=== PATIENT | female | born 1950 | race Caucasian/White ===

== ENCOUNTER → 2016-06-29 | Outpatient (CLI) | payer MEDICARE, OTHER ==
[~2016-06-29] MED LIST: ACET-62 PO; ACYC400T PO; CITA20TA9 PO; FAMO20TA8 PO; FLUC100T8 PO; HYDR-3989 PO; IBUP-1724 PO; IOHEXOL 300 MG/ML 75ml INJECTION ONE; LEVO150T11 PO; LORA0.5T86 PO; LORA10TA62 PO; NORMAL SALINE 100 ML ONE; SALINE FLUSH 10ml SYRINGE ONE; TAMS0.4C47 PO; magic mouthwash SSW
[2016-06-29 09:21] LABS: HCT - HEMATOCRIT 34.8 % (36-46); MEAN CORPUSCULAR HGB 32.5 UUG (26-34); MEAN CORPUSCULAR HGB CONC(MCHC 31.6 GM/DL (31-37); MEAN PLATELET VOLUME 8.9 UM3 (9.4-12.4); RED BLOOD COUNT 3.38 M/MM3 (4.00-5.20)
[2016-06-29 09:40] LABS: ALBUMIN 3.8 G/DL (3.5-5.0); ALKALINE PHOSPHATASE 95 U/L (38-126); ALT (SGPT) 41 U/L (9-52); ANION GAP 11 MEQ/L (5-15); AST (SGOT) 38 U/L (14-36); BUN/CREATININE RATIO 27 RATIO (6-26); CALCIUM 9.4 MG/DL (8.4-10.2); CHLORIDE 107 MEQ/L (98-107); CO2 - CARBON DIOXIDE 28 MEQ/L (22-30); CREATININE 0.9 MG/DL (0.7-1.2); GLOMERULAR FILTRATION RATE 62; GLUCOSE 98 MG/DL (65-110); LDH 726 U/L (313-618); MAGNESIUM 1.8 MG/DL (1.6-2.3); POTASSIUM 4.3 MEQ/L (3.6-5); SODIUM 146 MEQ/L (134-144); TOTAL PROTEIN 7.8 G/DL (6.3-8.2); URIC ACID 5.7 MG/DL (2.5-7.5)
[2016-06-29 09:41] LABS: WBC - WHITE BLOOD COUNT 97.9 T/MM3 (4.5-11.0)
[2016-06-29 10:00] LABS: IGA - IMMUNOGLOBULIN A 250.16 MG/DL (70-400); IGM - IMMUNOGLOBULIN M 61.07 MG/DL (40-230); NEUTROPHILS #(MANUAL)-ABSOLUTE 2.9 T/MM3 (1.8-7.7); TOTAL CELLS COUNTED 100 %
[2016-06-29 10:02] LABS: ANISOCYTOSIS 1+; POIKILOCYTOSIS 1+; SMUDGE CELLS 1+; TEAR DROP CELLS 1+
--- NOTE | 2016-06-29 12:05 | DI ---
Indication: ITS.REASON: C91.10 Chronic lymphocytic leukemia of B-cell type not having ach PROCEDURE: CT CHEST/ABD/PELVIS WC: Encounter: Subsequent Comparison: CT neck, chest, abdomen and pelvis dated January 12, 2016 Technique: Axial CT images were performed through the chest, abdomen and pelvis after the administration of intravenous contrast. Coronal and sagittal two-dimensional reformats. Automated Exposure Control and Iterative Reconstruction dose reducing techniques were utilized. Contrast: Omnipaque 300 74 mL Findings: Chest: Bilateral apical pleural thickening or scarring. No pneumonia, pleural effusion or pneumothorax. No new pulmonary nodules or masses. The central airways are patent. Scattered bilateral supraclavicular nodes. Bilateral axillary lymphadenopathy, left greater than right. This has worsened from the comparison study with significant enlargement in numerous axillary and subpectoral nodes. A circulation representative node on image #29 measures up to 3.2 cm in short axis dimension. Many of the other nodes have at least doubled in size. Die Repairer Stamping right axillary lymph node on image #36 now measures 1.3 cm in short axis compared to 0.9 cm. Enlarging paratracheal nodes. Posterior mediastinal adenopathy is also slightly larger. Heart size is normal. No pericardial effusion. Abdomen/pelvis: The liver appears normal. Gallbladder is within normal limits. Worsening splenomegaly. Spleen measures 16.1 cm anteroposteriorly. The pancreas is stable with a prominent cystic lesion in the body. Adrenal glands and kidneys are unchanged with bilateral renal stones and large parapelvic cysts. Mild bilateral hydronephrosis. Bulky mesenteric and retroperitoneal adenopathy is again seen and is also worsened with interval enlargement within the 100s of existing nodes. These are confluent and difficult to precisely measure. Right external iliac and pelvic sidewall adenopathy is also worsened with a node on image #68 now measuring 2.5 cm in short axis compared to 2.1 cm previously. Bilateral inguinal adenopathy is worsened as well. Left external iliac adenopathy has progressed. Bladder is grossly normal. Uterus is absent. No evidence of an acute bowel obstruction. Colon is mostly decompressed. Bone windows show degenerative and postoperative changes in the lumbar spine. Impression: Worsening metastatic disease with enlarging axillary, mediastinal, mesenteric, retroperitoneal and pelvic adenopathy. .
== END ==
LOC: IMA 09:02
PROVIDERS: ATTEND Internal Medicine Hematology & Oncology
DX: C91.10 Chronic lymphocytic leukemia of B-cell type not having achieved remission (principal); C77.1 Secondary and unspecified malignant neoplasm of intrathoracic lymph nodes; C77.3 Secondary and unspecified malignant neoplasm of axilla and upper limb lymph nodes; C77.5 Secondary and unspecified malignant neoplasm of intrapelvic lymph nodes; C78.6 Secondary malignant neoplasm of retroperitoneum and peritoneum
CPT/HCPCS: 36415; 71260; 74177; 80053; 82784; 83615; 83735; 83883; 84155; 84165; 84550; 85025; 86334; J7050; Q9967

== ENCOUNTER 2016-07-10 21:55 | Inpatient (IN) | payer MEDICARE, OTHER ==
[~2016-07-10] VITALS: Ht 167.6 cm; Wt 63.0 kg
[~2016-07-10 21:55] MED LIST changes: -IOHEXOL 300 MG/ML 75ml INJECTION ONE; -NORMAL SALINE 100 ML ONE; -SALINE FLUSH 10ml SYRINGE ONE
--- OUTSIDE RECORDS SUMMARY | 2016-07-10 21:59 | XMS REPORT | Continuity of Care Document ---
Author Author [facility] Organization [facility] Address Unknown Phone Unavailable Support Name Relationship Address Phone CHRISTOPHER CLAYTON Caregiver [address] [place] [address] Unavailable REINALDO CARDENAS MD Caregiver [address] [place] [address] Unavailable GISELA YATES Next Of Kin [address] [place] [address] Insurance Providers Guarantor Angelica Yates Address [address] [place] [id number] Email [email or web address] Medicare Policy Number [id number] Subscriber's Name Angelica Yates Relationship 18 Self Payer [facility] Policy Number [id number] Subscriber's Name Angelica Yates Relationship 18 Self Group Number [id number] Problems Active Problems Medical Problem Onset Date Status Adverse drug reaction Unknown Acute Anemia Unknown Chronic Chronic lymphocytic leukemia ~2012 Chronic Dehydration Unknown Resolved Hyponatremia 02/14/2016 Resolved Hypothyroid Unknown Chronic Leukocytosis Unknown Pharyngitis Unknown Acute Rash of entire body Unknown Acute SIRS due to infectious process without acute organ dysfunction Unknown Acute Thrush of mouth and esophagus Unknown Acute Urinary retention Unknown Resolved Past Problems Medical Problem Onset Date Fever Unknown Immunosuppressed status Unknown Medications Current Home Medications Medication Dose Units Route Directions Days Qty Instructions Start Date Acetaminophen 500 Mg Tablet 1,000 Mg Oral Every 8 Hours as needed for Pain 02/12/16 Acetaminophen/Hydrocodone Bitart (Castana 5-325 Tablet) 5-325 Tablet 1-2 Tab Oral Every 4 Hours as needed for Pain 30 02/18/16 Acyclovir 400 Mg Tablet 400 Mg Oral Twice A Day 02/12/16 Citalopram Hydrobromide (Citalopram Hbr) 20 Mg Tablet 20 Mg Oral Daily 02/12/16 Famotidine 20 Mg Tablet 20 Mg Oral Twice A Day 60 Tablet 02/18/16 Fluconazole 100 Mg Tablet 100 Mg Oral Daily for Thrush 7 Days 7 Tablet 02/18/16 Ibuprofen 200 Mg Tablet 400 Mg Oral Every 4 Hours as needed for Pain 02/12/16 Levothyroxine Sodium 150 Mcg Tablet 150 Mcg Oral Before Breakfast 02/12/16 Loratadine (Claritin) 10 Mg Tablet 10 Mg Oral Daily 02/12/16 Lorazepam (Ativan) 0.5 Mg Tablet 0.5 Mg Oral Every 4 Hours as needed for Anxiety 02/12/16 Magic Mouthwash 5 Ml Swish And Swallow Four Times Daily 200 Milliliter SIMETHICONE, DIPENHYDRAMINE, LIDOCAINE 1:1:1 02/18/16 Tamsulosin Hcl 0.4 Mg Cap.er.24h 0.4 Mg Oral Daily as needed for Prn Orders 02/12/16 Past Home Medications Medication Directions Ordered Status Acetaminophen/Hydrocodone Bitart (Castana 5-325 Tablet) 5-325 Tablet, 1 Tab Oral Every 4 Hours as needed for Pain 02/12/16 Discontinued Allopurinol 300 Mg Tablet, 300 Mg Oral Daily 02/12/16 Discontinued Ibrutinib (Imbruvica) 140 Mg Capsule, 420 Mg Oral Daily 02/12/16 Discontinued Magic Mouthwash , 1 Dose Swish And Swallow Four Times Daily 02/12/16 Discontinued Social History No social history. Hospital Discharge Instructions No hospital discharge instructions. Plan of Care Prescriptions See Medication Section Functional Status No functional status results. Allergies, Adverse Reactions, Alerts Allergen Type Severity Reaction Status Last Updated Ertapenem Allergy Severe Active 02/13/16 Immunizations Query Response on File Recorded Date/Time Hx Influenza Vaccination Y fall 201502/12/16 8:54pm Hx Pneumococcal Vaccination Y fall 201402/12/16 8:54pm Hx Influenza Vaccination Y fall 201502/12/16 8:54pm Influenza Vaccine Hx fall 201502/13/16 9:36am Vital Signs No known vital signs results. Results Laboratory Results Test Name Result Units Flags Reference Collection Date/Time Result Date/ Time Comments Eosinophils % (Manual) 3.0 % 0-4 03/10/2016 8:47am 03/10/2016 9:45am Metamyelocytes % 1.0 % H 0-0 02/21/2016 2:10pm 02/21/2016 2:46pm Plasma Cells 1.0 % H 0-0 02/10/2016 1:26pm 02/10/2016 2:06pm Eosinophils # (Manual) 0.3 T/MM3 0-0.5 03/10/2016 8:47am 03/10/2016 9: 45am Metamyelocytes # 0.2 T/MM3 02/21/2016 2:10pm 02/21/2016 2:46pm Plasma Cells 0.2 T/MM3 02/10/2016 1:26pm 02/10/2016 2:06pm Toxic Granulation 1+ 02/21/2016 2:10pm 02/21/2016 2:46pm Macrocytosis 1+ 02/10/2016 1:26pm 02/10/2016 2:06pm Ovalocytes 1+ 03/10/2016 8:47am 03/10/2016 9:45am Tear Drop Cells 1+ 03/10/2016 8:47am 03/10/2016 9:45am Urine Collection Type CLEANCATCH-MIDSTREAM 02/10/2016 4:40pm 2015 6:19pm Urine Color YELLOW YELLOW 02/10/2016 4:40pm 02/10/2016 6:19pm Urine Turbidity CLEAR CLEAR 02/10/2016 4:40pm 02/10/2016 6:19pm Urine Specific [place] 1.015 1.015-1.025 02/10/2016 4:40pm 2015 6:19pm Urine pH 6.0 5.0-8.0 02/10/2016 4:40pm 02/10/2016 6:19pm Urine Leukocyte Esterase NEGATIVE NEGATIVE 02/10/2016 4:40pm 2015 6:19pm Urine Nitrite NEGATIVE NEGATIVE 02/10/2016 4:40pm 02/10/2016 6:19pm Urine Protein 1+ A NEGATIVE 02/10/2016 4:40pm 02/10/2016 6:19pm Urine Glucose (UA) NEGATIVE NEGATIVE 02/10/2016 4:40pm 02/10/2016 6: 19pm Urine Ketones NEGATIVE NEGATIVE 02/10/2016 4:40pm 02/10/2016 6:19pm Urine Urobilinogen 0.2 EU/DL NORMAL 02/10/2016 4:40pm 02/10/2016 6: 19pm Urine Bilirubin NEGATIVE NEGATIVE 02/10/2016 4:40pm 02/10/2016 6: 19pm Urine Blood TRACE-INTACT A NEGATIVE 02/10/2016 4:40pm 02/10/2016 6: 19pm Urine WBC 1-3 /HPF 0-5 02/10/2016 4:40pm 02/10/2016 6:32pm Urine RBC 3-5 /HPF H 0-3 02/10/2016 4:40pm 02/10/2016 6:32pm Urine Squamous Epithelial Cells 0-5 02/10/2016 4:40pm 02/10/2016 6: 32pm Urine Bacteria TRACE H NEGATIVE 02/10/2016 4:40pm 02/10/2016 6:32pm Urine Culture Indicated CULT NOT INDICATED 02/10/2016 4:40pm 2015 6:32pm White Blood Count 30.0 T/MM3 *H 4.5-11.0 05/11/2016 9:44am 05/11/2016 9: 58am Red Blood Count 3.50 M/MM3 L 4.00-5.20 05/11/2016 9:44am 05/11/2016 9: 58am Hemoglobin 11.5 GM/DL L 12-16 05/11/2016 9:44am 05/11/2016 9:58am Hematocrit 35.3 % L 36-46 05/11/2016 9:44am 05/11/2016 9:58am Mean Corpuscular Volume 100.9 UM3 H 80-100 05/11/2016 9:44am 05/11/2016 9:58am Mean Corpuscular Hemoglobin 32.9 UUG 26-34 05/11/2016 9:44am 2016 9:58am Mean Corpuscular Hemoglobin Concent 32.6 GM/DL 31-37 05/11/2016 9:44am 05/11/2016 9:58am RDW Standard Deviation 53.6 FL H 36.9-50.2 05/11/2016 9:44am 05/11/2016 9:58am Platelet Count 171 T/MM3 130-400 05/11/2016 9:44am 05/11/2016 9:58am Mean Platelet Volume 9.2 UM3 L 9.4-12.4 05/11/2016 9:44am 05/11/2016 9: 58am Neutrophils % (Manual) 3.0 % L 33-66 05/11/2016 9:44am 05/11/2016 10: 21am Lymphocytes % (Manual) 96.0 % H 23-45 05/11/2016 9:44am 05/11/2016 10: 21am Monocytes % (Manual) 1.0 % 0-9.0 05/11/2016 9:44am 05/11/2016 10:21am Myelocytes % 2.0 % H 0-0 04/13/2016 11:28am 04/13/2016 12:11pm Reactive Lymphocytes % 1.0 % H 0-0 04/20/2016 10:23am 04/20/2016 11: 06am Absolute Neutrophils (Manual) 0.9 T/MM3 L 1.8-7.7 05/11/2016 9:44am 12/2016 10:21am Lymphocytes # (Manual) 28.8 T/MM3 H 1-4.8 05/11/2016 9:44am 05/11/2016 10:21am Monocytes # (Manual) 0.3 T/MM3 0-0.8 05/11/2016 9:44am 05/11/2016 10: 21am Myelocytes # 0.4 T/MM3 04/13/2016 11:28am 04/13/2016 12:11pm Reactive Lymphocytes # 0.3 T/MM3 H 0-0 04/20/2016 10:23am 04/20/2016 11: 06am Smudge Cells 2+ 05/04/2016 9:38am 05/04/2016 10:14am Nucleated Red Blood Cells 1 05/11/2016 9:44am 05/11/2016 10:21am Red Cell Morphology Comment ABNORMAL 05/11/2016 9:44am 05/11/2016 10:21am Anisocytosis 1+ 05/11/2016 9:44am 05/11/2016 10:21am Poikilocytosis 1+ 05/11/2016 9:44am 05/11/2016 10:21am Icterus Index < 2 0-7 05/11/2016 9:44am 05/11/2016 10:04am Chemistry Specimen Hemolysis < 15 0-25 05/11/2016 9:44am 05/11/2016 10:04am 0-25: Specimen Exhibited No Hemolysis. Turbidity < 20 0-20 05/11/2016 9:44am 05/11/2016 10:04am Sodium Level 141 MEQ/L 134-144 05/11/2016 9:44am 05/11/2016 10:04am Potassium Level 4.2 MEQ/L 3.6-5 05/11/2016 9:44am 05/11/2016 10:04am Chloride Level 107 MEQ/L 98-107 05/11/2016 9:44am 05/11/2016 10:04am Carbon Dioxide Level 27 MEQ/L 22-30 05/11/2016 9:44am 05/11/2016 10: 04am Anion Gap 7 MEQ/L 5-15 05/11/2016 9:44am 05/11/2016 10:04am Blood Urea Nitrogen 21.0 MG/DL H 7-17 05/11/2016 9:44am 05/11/2016 10: 04am Creatinine 0.9 MG/DL 0.7-1.2 05/11/2016 9:44am 05/11/2016 10:04am BUN/Creatinine Ratio 23 RATIO 6-26 05/11/2016 9:44am 05/11/2016 10: 04am Glomerular Filtration Rate Calc 62 05/11/2016 9:44am 05/11/2016 10: 04am Glucose Level 82 MG/DL 65-110 05/11/2016 9:44am 05/11/2016 10:04am Calculated Osmolality 273 MOSM/KG 261-280 05/11/2016 9:44am 05/11/2016 10:04am Calcium Level 9.0 MG/DL 8.4-10.2 05/11/2016 9:44am 05/11/2016 10:04am Total Bilirubin 0.60 MG/DL 0.20-1.30 05/11/2016 9:44am 05/11/2016 10: 04am Alkaline Phosphatase 75 U/L 38-126 05/11/2016 9:44am 05/11/2016 10: 04am Total Protein 7.4 G/DL 6.3-8.2 05/11/2016 9:44am 05/11/2016 10:04am Albumin 3.8 G/DL 3.5-5.0 05/11/2016 9:44am 05/11/2016 10:04am Globulin 3.6 G/DL 2.4-3.6 05/11/2016 9:44am 05/11/2016 10:04am Albumin/Globulin Ratio 1.1 RATIO 1.1-2.2 05/11/2016 9:44am 05/11/2016 10:04am Aspartate Amino Transf (AST/SGOT) 35 U/L 14-36 05/11/2016 9:44am 2016 10:04am Alanine Aminotransferase (ALT/SGPT) 39 U/L 9-52 05/11/2016 9:44am 05/11 10:04am Lactate Dehydrogenase 588 U/L 313-618 05/11/2016 9:44am 05/11/2016 10: 04am Magnesium Level 1.8 MG/DL 1.6-2.3 05/11/2016 9:44am 05/11/2016 10:04am Uric Acid 5.8 MG/DL 2.5-7.5 05/11/2016 9:44am 05/11/2016 10:04am Blood Smear Review SENT OUT 04/20/2016 10:23am 04/21/2016 11:12am SENT OUT Microbiology Results Procedure Source Organism/Result Collection Date/Time Result Date/Time Result Status Blood Culture Peripheral/Iv Start NO GROWTH AFTER 5 DAYS 02/10/2016 3:49pm 02/15/2016 3:53pm Final Urine Culture Urine, Clean Catch-Midstream NO GROWTH AFTER 48 HOURS 2015 4:40pm 02/13/2016 7:29am Final Procedures Procedure Status Date Provider(s) Routine venipuncture Completed 01/27/16 Comprehen metabolic panel Completed 01/27/16 Lactate (ld) (ldh) enzyme Completed 01/27/16 Assay of magnesium Completed 01/27/16 Complete cbc w/auto diff wbc Completed 01/27/16 Routine venipuncture Completed 01/27/16 Comprehen metabolic panel Completed 01/27/16 Lactate (ld) (ldh) enzyme Completed 01/27/16 Assay of magnesium Completed 01/27/16 Assay of blood/uric acid Completed 01/27/16 Complete cbc w/auto diff wbc Completed 01/27/16 Routine venipuncture Completed 01/27/16 Comprehen metabolic panel Completed 01/27/16 Lactate (ld) (ldh) enzyme Completed 01/27/16 Assay of magnesium Completed 01/27/16 Assay of blood/uric acid Completed 01/27/16 Complete cbc w/auto diff wbc Completed 01/27/16 Comprehen metabolic panel Completed 01/27/16 Lactate (ld) (ldh) enzyme Completed 01/27/16 Assay of magnesium Completed 01/27/16 Assay of blood/uric acid Completed 01/27/16 Complete cbc w/auto diff wbc Completed 01/27/16 Routine venipuncture Completed 01/27/16 Comprehen metabolic panel Completed 01/27/16 Lactate (ld) (ldh) enzyme Completed 01/27/16 Assay of magnesium Completed 01/27/16 Assay of blood/uric acid Completed 01/27/16 Complete cbc w/auto diff wbc Completed 01/27/16 Routine venipuncture Completed 01/27/16 Comprehen metabolic panel Completed 01/27/16 Lactate (ld) (ldh) enzyme Completed 01/27/16 Assay of magnesium Completed 01/27/16 Complete cbc w/auto diff wbc Completed 01/27/16 Routine venipuncture Completed 01/27/16 Comprehen metabolic panel Completed 01/27/16 Lactate (ld) (ldh) enzyme Completed 01/27/16 Assay of magnesium Completed 01/27/16 Assay of blood/uric acid Completed 01/27/16 Complete cbc w/auto diff wbc Completed 01/27/16 Routine venipuncture Completed 01/27/16 Comprehen metabolic panel Completed 01/27/16 Lactate (ld) (ldh) enzyme Completed 01/27/16 Assay of magnesium Completed 01/27/16 Assay of blood/uric acid Completed 01/27/16 Complete cbc w/auto diff wbc Completed 01/27/16 Routine venipuncture Completed 01/27/16 Comprehen metabolic panel Completed 01/27/16 Lactate (ld) (ldh) enzyme Completed 01/27/16 Assay of magnesium Completed 01/27/16 Assay of blood/uric acid Completed 01/27/16 Complete cbc w/auto diff wbc Completed 01/27/16 Routine venipuncture Completed 01/27/16 Comprehen metabolic panel Completed 01/27/16 Lactate (ld) (ldh) enzyme Completed 01/27/16 Assay of magnesium Completed 01/27/16 Assay of blood/uric acid Completed 01/27/16 Complete cbc w/auto diff wbc Completed 01/27/16 Encounters Encounter Location Arrival/Admit Date Discharge/Depart Date Attending Provider Discharged [facility] 05/11/16 9:35am 06/25/16 11:59pm CHRISTOPHER CLAYTON Discharged [facility] 01/27/16 7:57am 04/01/16 11:45pm CHRISTOPHER CLAYTON
--- OUTSIDE RECORDS SUMMARY | 2016-07-10 22:00 | XMS REPORT | Continuity of Care Document ---
Author Author [facility] Organization [facility] Address Unknown Phone Unavailable Support Name Relationship Address Phone POLO BLACK MD Caregiver [address] [place] [address] Unavailable YASMINE SCHAEFER MD Caregiver [address] [place] [address] [place] [address] Unavailable REINALDO CARDENAS MD Caregiver [address] [place] [address] Unavailable KATELYNN BUENO MD Caregiver [address] [place] [address] [place] [address] Unavailable TRUDYGISELA [place] Next Of Kin [address] [place] [address] Insurance Providers Guarantor Angelica Coyne Address [address] [address] Email [email or web address] Payer Medicare Policy Number [id number] Subscriber's Name Angelica Coyne Relationship 18 Self Payer [facility] Policy Number [id number] Subscriber's Name Angelica Coyne Relationship 18 Self Group Number [id number] Advance Directives Directive Response Recorded Date/Time Ordered Resuscitation Status Full Code 02/12/16 7:54pm Resuscitation Documents on File No 02/12/16 8:47pm DPOA for Healthcare Only No 02/13/16 10:34am Living Will No 02/12/16 8:47pm Advanced Directive or Resuscitation Comments full code 02/12/16 8:47pm Problems Active Problems Medical Problem Onset Date Status Adverse drug reaction Unknown Acute Anemia Unknown Chronic Chronic lymphocytic leukemia ~2012 Chronic Dehydration Unknown Resolved Hyponatremia 02/14/2016 Resolved Hypothyroid Unknown Chronic Leukocytosis Unknown Pharyngitis Unknown Acute Rash of entire body Unknown Acute SIRS due to infectious process without acute organ dysfunction Unknown Acute Thrush of mouth and esophagus Unknown Acute Urinary retention Unknown Acute Past Problems Medical Problem Onset Date Fever Unknown Immunosuppressed status Unknown Medications Current Home Medications Medication Dose Units Route Directions Days Qty Instructions Start Date Acetaminophen 500 Mg Tablet 1,000 Mg Oral Every 8 Hours as needed for Pain 02/12/16 Acyclovir 400 Mg Tablet 400 Mg Oral Twice A Day 02/12/16 Citalopram Hydrobromide (Citalopram Hbr) 20 Mg Tablet 20 Mg Oral Daily 02/12/16 Famotidine 20 Mg Tablet 20 Mg Oral Twice A Day 60 Tablet 02/18/16 Fluconazole 100 Mg Tablet 100 Mg Oral Daily for Thrush 7 Days 7 Tablet 02/18/16 Hydrocodone/Acetaminophen (Hydrocodon-Acetaminophen 5-325) 5-325 Tablet 1-2 Tab Oral Every 4 Hours as needed for Pain 30 02/18/16 Ibuprofen 200 Mg Tablet 400 Mg [...] Past Home Medications Medication Directions Ordered Status Allopurinol 300 Mg Tablet, 300 Mg Oral Daily 02/12/16 Discontinued Hydrocodone/Acetaminophen (Hydrocodon-Acetaminophen 5-325) 5-325 Tablet, 1 Tab Oral Every 4 Hours as needed for Pain 02/12/16 Discontinued Ibrutinib (Imbruvica) 140 Mg Capsule, 420 Mg Oral Daily 02/12/16 Discontinued Magic Mouthwash , 1 Dose Swish And Swallow Four Times Daily 02/12/16 Discontinued Social History Social History Problem Response Recorded Date/Time Onset Date Status Reason for Hospitalization rash 02/18/2016 2:41pm Not Applicable Not Applicable Query Response Start Date Stop Date Smoking Status Never smoker Hospital Discharge Instructions Instructions: Care Instructions: Reason for Hospitalization: rash I was in the hospital because (patient own words): terrible rash and high fever from chemo Discharge Diet: regular/soft Discharge Activity: As tolerated Follow Up Appointments: Contact [facility] if any issues arise and they will follow up with you Schedule f/u with Dr. Varela Sunday02/21/16 labs at 1:45 pm. and the follow up at 2:30 pm. Follow-up with Dr. Oscar Ambrosio in 1-2 weeks on March 02 at 3:30 pm. Pending Lab / Results: Follow up w/ provider Patient Instructions: Continue Pepcid and Claritin daily to minimize itching. Take Benadryl as needed for itching Continue swizzle mouthwash for oral comfort. Continue Diflucan for another week for thrush. Final blood culture results pending at discharge. Wound/Incision Care: Keep area moisturized with A&D ointment, may cover with Telfa or other nonadherent dressing Durable Medical Equipment: NA Pain Management/Treatment: See medication list Expected Signs/Symptoms: Discomfort in your mouth and related to areas where the rash has formed blisters and sloughed Notify Physician If: Areas on your buttocks become red or inflamed and start draining pus. You developed fever or chills: Worsening rash During Business Hours:: Please call the physician's office at After Business Hours:: Please call [phone] and have the mold yard crane operator page the physician. Condition at time of discharge: Fair Plan of Care Discharge Date 02/18/16 3:16pm Disposition 01 DISCHARGED HOME, SELF-CARE Instructions/Education Provided DI for Fever (Symptom) -- Adult Prescriptions See Medication Section Care Plan and Goals See Discharge Instructions Section Functional Status Query Response Date Recorded Mobility Status Ambulatory w/assist February 18, 2016 2:41pm Assistive Devices None February 18, 2016 2:41pm Activity Limitations Weakness Fatigue February 18, 2016 2:41pm Feeding Ability Independent February 18, 2016 2:41pm Toileting Ability Assist February 18, 2016 2:41pm Grooming Ability Independent February 18, 2016 2:41pm Dressing Ability Assist February 18, 2016 2:41pm Driving Ability Assist February 18, 2016 2:41pm Housework Ability Assist February 18, 2016 2:41pm Meal Preparation Ability Assist February 18, 2016 2:41pm Stair Climbing Ability Assist February 18, 2016 2:41pm Ability to complete ADL's impeded by Impaired Mobility February 18, 2016 2:41pm Cognitive/Perceptual Impairments Impaired vision February 18, 2016 2:41pm Visual Assistive Devices Glasses February 15, 2016 8:33pm Allergies, Adverse Reactions, Alerts Allergen Type Severity Reaction Status Last Updated Ertapenem Allergy Severe Active 02/13/16 Immunizations Query Response on File Recorded Date/Time Hx Influenza Vaccination Y fall 201502/12/16 8:54pm Hx Pneumococcal Vaccination Y fall 201402/12/16 8:54pm Hx Influenza Vaccination Y fall 201502/12/16 8:54pm Influenza Vaccine Hx fall 201502/13/16 9:36am Vital Signs Acute Vital Signs Vital Response Date/Time Temperature (Fahrenheit) 97.2 deg F (96.8 - 99.1) 02/18/2016 4:01am Temperature (Calculated Celsius) 36.90993 degrees C (36.0 - 37.3) 02/18/2016 4:01am Pulse Rate (adult) 73 bpm (60 - 100) 02/18/2016 7:37am Respiratory Rate 17 breaths/min (10 - 20) 02/18/2016 7:34am O2 Sat by Pulse Oximetry 95 % (90 - 100) 02/18/2016 7:34am Oxygen Delivery Method Room Air 02/13/2016 8:19pm Oxygen Delivery Method Room Air 02/18/2016 4:01am Blood Pressure 120/65 mm Hg 02/18/2016 7:37am Blood Pressure Source Automatic Cuff 02/18/2016 7:34am Height (Feet) 5 feet 02/17/2016 2:03pm Height (Inches) 6.00 inches 02/17/2016 2:03pm Weight (Kilograms) 63.600 kg 02/18/2016 7:38am Body Mass Index (BMI) 21.5 02/12/2016 8:46pm Results Laboratory Results Test Name Result Units Flags Reference Collection Date/Time Result Date/ Time Comments Immunoglobulin G 1538.26 MG/DL 700-1600 12/30/2015 8:28am 12/30/2015 8: 56am Immunoglobulin A 228.73 MG/DL 70-400 12/30/2015 8:28am 12/30/2015 8: 56am Immunoglobulin M 73.84 MG/DL 40-230 12/30/2015 8:28am 12/30/2015 8: 56am 25-Hydroxy Vitamin D3 31 ng/mL 12/30/2015 8:28am 01/03/2016 10:26am 25-Hydroxy Vitamin D2 <7 ng/mL 12/30/2015 8:28am 01/03/2016 10:26am 25-Hydroxy Vitamin D Total 31 ng/mL 30-74 12/30/2015 8:28am 01/03/2016 10:26am The desirable level of 25-Hydroxy Vitamin D Total(D2 + D3) is 30-74 ng/ mL. A level consistently >200 is potentially toxic. Vitamin D, 25-Hydroxy performed at [facility], [address] [place] [address] Section Gang Worker Alba Torres DO Erythropoietin 54.3 mIU/mL H 01/17/2016 3:52pm 01/19/2016 3:53pm Reference Range: 2.6 - 18.5 Test Performed by: [place] [address] Lighting Designer: Gustavo Young II, M.D., Ph.D. Erythropoietin performed at [facility], [address] [place] [address] Section Gang Worker Hector Salvador MD Haptoglobin 204 mg/dL H 36-195 01/17/2016 3:52pm 01/17/2016 10:32pm Haptoglobin performed at [facility], [address] [place] [address] Section Gang Worker Alba Torres DO Homocysteine 4.5 umol/L 4.0-14.0 01/17/2016 3:52pm 01/17/2016 10:04pm Homocysteine performed at [facility], [address] [place] [address] Section Gang Worker Alba Torres DO Methylmalonic Acid 0.15 nmol/mL <=0.40 01/17/2016 3:52pm 01/21/2016 10: 11am Test Performed by: [place] [address] Lighting Designer: Gustavo Young II, M.D., Ph.D. Methylmalonic Acid, [place] [address] Section Gang Worker Hector Salvador MD Phosphorus Level 3.4 MG/DL 2.5-4.5 01/19/2016 10:25am 01/19/2016 11: 08am Erythrocyte Sedimentation Rate 48 mm/h H 0-23 02/11/2016 8:30am 2015 4:18pm Sedimentation Rate performed at [facility], [address], [place] [address] Section Gang Worker Alba Wu W, DO Myelocytes % 1.0 % H 0-0 01/27/2016 8:08am 01/27/2016 9:50am Plasma Cells 1.0 % H 0-0 02/10/2016 1:26pm 02/10/2016 2:06pm Myelocytes # 0.9 T/MM3 01/27/2016 8:08am 01/27/2016 9:50am Plasma Cells 0.2 T/MM3 02/10/2016 1:26pm 02/10/2016 2:06pm Urine Culture Indicated CULT NOT INDICATED 02/10/2016 4:40pm 2015 6:32pm C-Reactive Protein 67.4 MG/L H 0-9 02/12/2016 12:08pm 02/12/2016 12: 26pm White Blood Count 17.7 T/MM3 H 4.5-11.0 02/18/2016 4:41am 02/18/2016 6: 02am Red Blood Count 2.39 M/MM3 L 4.00-5.20 02/18/2016 4:41am 02/18/2016 6: 02am Hemoglobin 7.9 GM/DL L 12-16 02/18/2016 4:41am 02/18/2016 6:02am Hematocrit 25.5 % L 36-46 02/18/2016 4:41am 02/18/2016 6:02am Mean Corpuscular Volume 106.7 UM3 H 80-100 02/18/2016 4:41am 02/18/2016 6:02am Mean Corpuscular Hemoglobin 33.1 UUG 26-34 02/18/2016 4:41am 2015 6:02am Mean Corpuscular Hemoglobin Concent 31.0 GM/DL 31-37 02/18/2016 4:41am 02/18/2016 6:02am RDW Standard Deviation 62.9 FL H 36.9-50.2 02/18/2016 4:41am 02/18/2016 6:02am Platelet Count 208 T/MM3 130-400 02/18/2016 4:41am 02/18/2016 6:02am Mean Platelet Volume 9.8 UM3 9.4-12.4 02/18/2016 4:41am 02/18/2016 6: 02am Neutrophils % (Manual) 23.0 % L 33-66 02/18/2016 4:41am 02/18/2016 6: 51am Band Neutrophils % 1.0 % 0-6 02/15/2016 4:14am 02/15/2016 6:43am Lymphocytes % (Manual) 74.0 % H 23-45 02/18/2016 4:41am 02/18/2016 6: 51am Monocytes % (Manual) 1.0 % 0-9.0 02/18/2016 4:41am 02/18/2016 6:51am Reactive Lymphocytes % 2.0 % H 0-0 02/18/2016 4:41am 02/18/2016 6:51am Band Neutrophils # 0.2 T/MM3 02/15/2016 4:14am 02/15/2016 6:43am Absolute Neutrophils (Manual) 4.1 T/MM3 1.8-7.7 02/18/2016 4:41am 02/17 6:51am Lymphocytes # (Manual) 13.1 T/MM3 H 1-4.8 02/18/2016 4:41am 02/18/2016 6 :51am Monocytes # (Manual) 0.2 T/MM3 0-0.8 02/18/2016 4:41am 02/18/2016 6: 51am Reactive Lymphocytes # 0.4 T/MM3 H 0-0 02/18/2016 4:41am 02/18/2016 6: 51am Smudge Cells 3+ 02/18/2016 4:41am 02/18/2016 6:51am Red Cell Morphology Comment ABNORMAL 02/18/2016 4:41am 02/18/2016 6 :51am Anisocytosis 1+ 02/18/2016 4:41am 02/18/2016 6:51am Poikilocytosis 1+ 02/15/2016 4:14am 02/15/2016 6:43am Macrocytosis 1+ 02/15/2016 4:14am 02/15/2016 6:43am Polychromasia 1+ 02/16/2016 5:26am 02/16/2016 7:30am Flat Top Cells 2+ 02/15/2016 4:14am 02/15/2016 6:43am Ovalocytes 1+ 02/12/2016 5:41pm 02/12/2016 6:05pm Target Cells 1+ 02/12/2016 5:41pm 02/12/2016 6:05pm Basophilic Stippling 1+ 02/16/2016 5:26am 02/16/2016 7:30am Absolute Reticulocyte Count 0.0163 T/MM3 L 0.0300-0.0900 02/17/2016 4: 17am 02/17/2016 5:25am Percent Reticulocyte Count 0.7 % 0.6-1.7 02/17/2016 4:17am 02/17/2016 5 :25am Immature Reticulocyte Fraction 10.7 % 3.3-14.5 02/17/2016 4:17am 2015 5:25am Reticulocyte Hgb Content (CHr) 31.2 PG 30.8-36.6 02/17/2016 4:17am 5:25am Icterus Index < 2 0-7 02/18/2016 4:41am 02/18/2016 6:14am Chemistry Specimen Hemolysis < 15 0-25 02/18/2016 4:41am 02/18/2016 6 :14am 0-25: Specimen Exhibited No Hemolysis. Turbidity < 20 0-20 02/18/2016 4:41am 02/18/2016 6:14am Sodium Level 139 MEQ/L 134-144 02/18/2016 4:41am 02/18/2016 6:14am Potassium Level 3.7 MEQ/L 3.6-5 02/18/2016 4:41am 02/18/2016 6:14am Chloride Level 105 MEQ/L 98-107 02/18/2016 4:41am 02/18/2016 6:14am Carbon Dioxide Level 28 MEQ/L 22-30 02/18/2016 4:41am 02/18/2016 6: 14am Anion Gap 6 MEQ/L 5-15 02/18/2016 4:41am 02/18/2016 6:14am Blood Urea Nitrogen 19.0 MG/DL H 7-17 02/18/2016 4:41am 02/18/2016 6: 14am Creatinine 0.8 MG/DL 0.7-1.2 02/18/2016 4:41am 02/18/2016 6:14am BUN/Creatinine Ratio 24 RATIO 6-26 02/18/2016 4:41am 02/18/2016 6:14am Glomerular Filtration Rate Calc 72 02/18/2016 4:41am 02/18/2016 6: 14am Glucose Level 72 MG/DL 65-110 02/18/2016 4:41am 02/18/2016 6:14am Calculated Osmolality 269 MOSM/KG 261-280 02/18/2016 4:41am 02/18/2016 6:14am Calcium Level 7.7 MG/DL L 8.4-10.2 02/18/2016 4:41am 02/18/2016 6:14am Total Bilirubin 0.30 MG/DL 0.20-1.30 02/17/2016 4:02/17/2016 9: 34am Unconjugated Bilirubin 0.00 MG/DL 0.00-1.10 02/17/2016 4:2015 9:34am Conjugated Bilirubin 0.00 MG/DL 0.00-0.30 02/17/2016 4:02/17/2016 9:34am Alkaline Phosphatase 46 U/L 38-126 02/17/2016 4:02/17/2016 9:34am Total Protein 4.8 G/DL L 6.3-8.2 02/17/2016 4:02/17/2016 9:34am Albumin 2.2 G/DL L 3.5-5.0 02/17/2016 4:02/17/2016 9:34am Globulin 2.6 G/DL 2.4-3.6 02/17/2016 4:02/17/2016 9:34am Albumin/Globulin Ratio 0.8 RATIO L 1.1-2.2 02/17/2016 4:02/17/2016 9:34am Aspartate Amino Transf (AST/SGOT) 73 U/L H 14-36 02/17/2016 4:02/16 9:34am Alanine Aminotransferase (ALT/SGPT) 48 U/L 9-52 02/17/2016 4:02/16 9:34am Lactate Dehydrogenase 412 U/L 313-618 02/17/2016 4:02/17/2016 5: 31am Magnesium Level 2.0 MG/DL 1.6-2.3 02/17/2016 4:17am 02/17/2016 5:31am Uric Acid 2.6 MG/DL 2.5-7.5 02/14/2016 4:42am 02/14/2016 6:28pm Plasma Lactate 1.6 MMOL/L 0.6-2.2 02/12/2016 5:36pm 02/12/2016 5:57pm Procalcitonin 1.89 NG/ML 02/13/2016 5:10am 02/13/2016 9:35am PCT </= 0.5 ng/mL - sepsis not likely; PCT >0.5 and </=2 ng/mL - sepsis possible; PCT >2 ng/mL - sepsis likely; PCT >/=10 ng/mL - systemic inflammatory response - sepsis or septic shock highly indicated. Iron Level 22 UG/DL L 37-170 02/17/2016 4:17am 02/18/2016 1:32am Total Iron Binding Capacity 198 UG/DL L 261-497 02/17/2016 4:17am 2015 1:42am Percent Iron Saturation 11 % 9-55 02/17/2016 4:17am 02/18/2016 1:42am Ferritin 453 NG/ML H 11-264 02/17/2016 4:17am 02/18/2016 2:16am Vitamin B12 Level > 1000 PG/ML H 239-931 02/17/2016 4:17am 02/18/2016 2: 47am Folate 7.4 NG/ML 2.76-20 02/17/2016 4:17am 02/18/2016 2:47am NORMAL ADULT RANGE: 2.76->20 ng/mL Stool Occult Blood NEGATIVE 02/15/2016 4:20pm 02/15/2016 4:44pm Group A Streptococcus Screen NEGATIVE NEGATIVE 02/12/2016 5:41pm 03/2016 7:17pm Strep culture confirmation to follow Stool C. difficile Toxin B Gene PCR NEGATIVE NEGATIVE 02/15/2016 4: 20pm 02/15/2016 6:22pm If Toxin A is clinically indicated, treat accordingly. Adenovirus (PCR) NEGATIVE NEGATIVE 02/12/2016 6:13pm 02/12/2016 7: 33pm Coronavirus Type 229E (PCR) NEGATIVE NEGATIVE 02/12/2016 6:13pm 02/11 7:33pm Coronavirus Type HKU1 (PCR) NEGATIVE NEGATIVE 02/12/2016 6:13pm 02/11 7:33pm Coronavirus Type NL63 (PCR) NEGATIVE NEGATIVE 02/12/2016 6:13pm 02/11 7:33pm Coronavirus Type OC43 (PCR) NEGATIVE NEGATIVE 02/12/2016 6:13pm 02/11 7:33pm Human Metapneumovirus (PCR) NEGATIVE NEGATIVE 02/12/2016 6:13pm 02/11 7:33pm Enterovirus/Rhinovirus (PCR) NEGATIVE NEGATIVE 02/12/2016 6:13pm 03/2016 7:33pm Influenza Virus Type A (PCR) NEGATIVE NEGATIVE 02/12/2016 6:13pm 03/2016 7:33pm Influenza Virus Type B (PCR) NEGATIVE NEGATIVE 02/12/2016 6:13pm 03/2016 7:33pm Parainfluenza Type 1 (PCR) NEGATIVE NEGATIVE 02/12/2016 6:13pm 2015 7:33pm Parainfluenza Type 2 (PCR) NEGATIVE NEGATIVE 02/12/2016 6:13pm 2015 7:33pm Parainfluenza Type 3 (PCR) NEGATIVE NEGATIVE 02/12/2016 6:13pm 2015 7:33pm Parainfluenza Type 4 (PCR) NEGATIVE NEGATIVE 02/12/2016 6:13pm 2015 7:33pm Respiratory Syncytial Virus (PCR) NEGATIVE NEGATIVE 02/12/2016 6:13pm 02/12/2016 7:33pm Bordetella parapertussis DNA (PCR) NEGATIVE NEGATIVE 02/12/2016 6: 13pm 02/12/2016 7:33pm Chlamydia pneumoniae DNA (PCR) NEGATIVE NEGATIVE 02/12/2016 6:13pm 7:33pm Mycoplasma pneumoniae (PCR) NEGATIVE NEGATIVE 02/12/2016 6:13pm 02/11 7:33pm Urine Collection Type CLEANCATCH-MIDSTREAM 02/12/2016 7:28pm 2015 7:33pm Urine Color YELLOW YELLOW 02/12/2016 7:28pm 02/12/2016 7:33pm Urine Turbidity CLEAR CLEAR 02/12/2016 7:28pm 02/12/2016 7:33pm Urine Specific [place] >=1.030 H 1.015-1.025 02/12/2016 7:2015 7:33pm Urine pH 5.5 5.0-8.0 02/12/2016 7:02/12/2016 7:33pm Urine Leukocyte Esterase NEGATIVE NEGATIVE 02/12/2016 7:2015 7:33pm Urine Nitrite NEGATIVE NEGATIVE 02/12/2016 7:02/12/2016 7:33pm Urine Protein 2+ A NEGATIVE 02/12/2016 7:02/12/2016 7:33pm Urine Glucose (UA) NEGATIVE NEGATIVE 02/12/2016 7:02/12/2016 7: 33pm Urine Ketones NEGATIVE NEGATIVE 02/12/2016 7:02/12/2016 7:33pm Urine Urobilinogen 0.2 EU/DL NORMAL 02/12/2016 7:02/12/2016 7: 33pm Urine Bilirubin NEGATIVE NEGATIVE 02/12/2016 7:02/12/2016 7: 33pm Urine Blood NEGATIVE NEGATIVE 02/12/2016 7:02/12/2016 7:33pm Urine WBC 0-1 /HPF 0-5 02/12/2016 7:02/12/2016 7:42pm Urine RBC 0-1 /HPF 0-3 02/12/2016 7:02/12/2016 7:42pm Urine Squamous Epithelial Cells 0-5 02/12/2016 7:02/12/2016 7: 42pm Urine Bacteria 2+ H NEGATIVE 02/12/2016 7:02/12/2016 7:42pm Urine Calcium Oxalate Crystals MODERATE 02/12/2016 7:2015 7:42pm Urine Mucus PRESENT 02/12/2016 7:02/12/2016 7:42pm Urine Hyaline Casts 0-1 /LPF 02/12/2016 7:02/12/2016 7:42pm Urine Culture Indicated CULT NOT INDICATED 02/12/2016 7:pm 2015 7:42pm Microbiology Results Procedure Source Organism/Result Collection Date/Time Result Date/Time Result Status Throat Culture Throat NORMAL RESPIRATORY STEPHANIE 02/11/2016 9:45am 2015 7:40am Final Urine Culture Urine, Clean Catch-Midstream NO GROWTH AFTER 48 HOURS 2015 4:40pm 02/13/2016 7:29am Final Group A Streptococcus Culture Throat NO GROUP A STREP ISOLATED 02/12/2016 7 :17pm 02/15/2016 9:06am Final Blood Culture Peripheral/Iv Start NO GROWTH AFTER 5 DAYS 02/13/2016 1:56pm 02/18/2016 2:02pm Final Procedures Procedure Status Date Provider(s) ROUTINE VENIPUNCTURE Completed 12/30/15 COMPREHEN METABOLIC PANEL Completed 12/30/15 VITAMIN D 25 HYDROXY Completed 12/30/15 ASSAY IGA/IGD/IGG/IGM EACH Completed 12/30/15 ASSAY IGA/IGD/IGG/IGM EACH Completed 12/30/15 ASSAY IGA/IGD/IGG/IGM EACH Completed 12/30/15 LACTATE (LD) (LDH) ENZYME Completed 12/30/15 ASSAY OF MAGNESIUM Completed 12/30/15 COMPLETE CBC W/AUTO DIFF WBC Completed 12/30/15 CT SOFT TISSUE NECK W/DYE Completed 01/12/16 CT THORAX W/DYE Completed 01/12/16 CT ABD & PELV W/CONTRAST Completed 01/12/16 282970"INFUSION, NORMAL SALINE SOLUTION , 250 CC" Completed 01/12/16 087699"LOW OSMOLAR CONTRAST MATERIAL, 300-399 MG/ML IODINE C Completed ROUTINE VENIPUNCTURE Completed 01/17/16 COMPREHEN METABOLIC PANEL Completed 01/17/16 VITAMIN B-12 Completed 01/17/16 ASSAY OF ERYTHROPOIETIN Completed 01/17/16 ASSAY OF FERRITIN Completed 01/17/16 ASSAY OF FOLIC ACID SERUM Completed 01/17/16 ASSAY OF HAPTOGLOBIN QUANT Completed 01/17/16 ASSAY OF HOMOCYSTINE Completed 01/17/16 ASSAY OF IRON Completed 01/17/16 IRON BINDING TEST Completed 01/17/16 LACTATE (LD) (LDH) ENZYME Completed 01/17/16 ORGANIC ACID SINGLE QUANT Completed 01/17/16 ASSAY OF BLOOD/URIC ACID Completed 01/17/16 COMPLETE CBC W/AUTO DIFF WBC Completed 01/17/16 MANUAL RETICULOCYTE COUNT Completed 01/17/16 BASIM TEST DIRECT Completed 01/17/16 Encounters Encounter Location Arrival/Admit Date Discharge/Depart Date Attending Provider Discharged Inpatient [facility] 02/12/16 7:54pm 02/18/16 3:16pm POLO BLACK MD Discharged [facility] 02/12/16 10:35am 02/12/16 1:00pm CHRISTOPHER VARELA Registered [facility] 02/11/16 9:53am CHRISTOPHER VARELA Registered [facility] 02/10/16 3:54pm CHRISTOPHER VARELA Registered [facility] 01/17/16 3:37pm CHRISTOPHER VARELA Registered [facility] 01/12/16 1:04pm CHRISTOPHER VARELA Registered [facility] 12/30/15 8:04am CHRISTOPHER VARELA
--- OUTSIDE RECORDS SUMMARY | 2016-07-10 22:00 | XMS REPORT | Continuity of Care Document ---
Author Author [facility] Organization [facility] Address Unknown Phone Unavailable Support Name Relationship Address Phone PHUONG VELAZCO MD Caregiver [address] [place] [id number] Unavailable YASMINE SCHAEFER MD Caregiver [address] [place] [address] [place] [address] Unavailable REINALDO CARDENAS MD Caregiver [address] [place] [address] Unavailable KATELYNN BUENO MD Caregiver [address] [place] [address] [place] [address] Unavailable TRUDYGISELA [place] Next Of Kin [address] [place] [id number] Insurance Providers Guarantor Vicki Yates Address [address] [address] Email [email or web address] Payer Medicare Policy Number [id number] Subscriber's Name Vicki Yates Relationship 18 Self Payer [facility] Policy Number [id number] Subscriber's Name Vicki Yates Relationship 18 Self Group Number [id number] Advance [...] office at After Business Hours:: Please call [phone] and have the knitting machine operator helper page the physician. Condition at time of [...] - 99.1) 02/18/2016 4:01am Temperature (Calculated Celsius) 36.80308 degrees C (36.0 - 37.3) 02/18/2016 4:01am [...] potentially toxic. Vitamin D, 25-Hydroxy performed at [facility], [address] [place] [address] Gun Stocker Alba Torres DO Erythropoietin 54.3 mIU/mL H 01/17/2016 3:52pm 01/19/2016 3:53pm Reference Range: 2.6 - 18.5 Test Performed by: [place] [address] [employer] Director: Gustavo Young II, M.D., Ph.D. Erythropoietin performed at [facility], [address] [place] [address] [employer] Hector Salvador MD Haptoglobin 204 mg/dL H 36-195 01/17/2016 3:52pm 01/17/2016 10:32pm Haptoglobin performed at [facility], [address] [place] [address] [employer] Alba Torres DO Homocysteine 4.5 umol/L 4.0-14.0 01/17/2016 3:52pm 01/17/2016 10:04pm Homocysteine performed at [facility], [address] [place] [address] Gun Stocker Alba Torres DO Methylmalonic Acid 0.15 nmol/mL <=0.40 01/17/2016 3:52pm 01/21/2016 10: 11am Test Performed by: [place] [address] [employer] Director: Gustavo Young II, M.D., Ph.D. Methylmalonic Acid, [place] [address] Gun [employer]ocker Hector Salvador MD Phosphorus Level 3.4 MG/DL 2.5-4.5 01/19/2016 10:25am 01/19/2016 11: 08am Erythrocyte Sedimentation Rate 48 mm/h H 0-23 02/11/2016 8:30am 2015 4:18pm Sedimentation Rate performed at [facility], [address], [place] [address] [employer]ocker Alba Torres DO White Blood Count 9.2 T/MM3 4.5-11.0 03/10/2016 8:47am 03/10/2016 9: 13am Red Blood Count 3.18 M/MM3 L 4.00-5.20 03/10/2016 8:47am 03/10/2016 9: 13am Hemoglobin 10.3 GM/DL L 12-16 03/10/2016 8:47am 03/10/2016 9:13am Hematocrit 33.8 % L 36-46 03/10/2016 8:47am 03/10/2016 9:13am Mean Corpuscular Volume 106.3 UM3 H 80-100 03/10/2016 8:47am 03/10/2016 9:13am Mean Corpuscular Hemoglobin 32.4 UUG 26-34 03/10/2016 8:47am 2015 9:13am Mean Corpuscular Hemoglobin Concent 30.5 GM/DL L 31-37 03/10/2016 8:47am 03/10/2016 9:13am RDW Standard Deviation 64.1 FL H 36.9-50.2 03/10/2016 8:47am 03/10/2016 9:13am Platelet Count 136 T/MM3 D 130-400 03/10/2016 8:47am 03/10/2016 9:13am Mean Platelet Volume 8.9 UM3 L 9.4-12.4 03/10/2016 8:47am 03/10/2016 9: 13am Neutrophils % (Manual) 8.0 % L 33-66 03/10/2016 8:47am 03/10/2016 9: 45am Lymphocytes % (Manual) 89.0 % H 23-45 03/10/2016 8:47am 03/10/2016 9: 45am Monocytes % (Manual) 4.0 % 0-9.0 02/28/2016 2:49pm 02/28/2016 3:38pm Eosinophils % (Manual) 3.0 % 0-4 03/10/2016 8:47am 03/10/2016 9:45am Metamyelocytes % 1.0 % H 0-0 02/21/2016 2:10pm 02/21/2016 2:46pm Myelocytes % 1.0 % H 0-0 01/27/2016 8:08am 01/27/2016 9:50am Reactive Lymphocytes % 3.0 % H 0-0 02/21/2016 2:10pm 02/21/2016 2:46pm Plasma Cells 1.0 % H 0-0 02/10/2016 1:26pm 02/10/2016 2:06pm Absolute Neutrophils (Manual) 0.7 T/MM3 L 1.8-7.7 03/10/2016 8:47am 12/2015 9:45am Lymphocytes # (Manual) 8.2 T/MM3 H 1-4.8 03/10/2016 8:47am 03/10/2016 9: 45am Monocytes # (Manual) 0.4 T/MM3 0-0.8 02/28/2016 2:49pm 02/28/2016 3: 38pm Eosinophils # (Manual) 0.3 T/MM3 0-0.5 03/10/2016 8:47am 03/10/2016 9: 45am Metamyelocytes # 0.2 T/MM3 02/21/2016 2:10pm 02/21/2016 2:46pm Myelocytes # 0.9 T/MM3 01/27/2016 8:08am 01/27/2016 9:50am Reactive Lymphocytes # 0.5 T/MM3 H 0-0 02/21/2016 2:10pm 02/21/2016 2: 46pm Plasma Cells 0.2 T/MM3 02/10/2016 1:26pm 02/10/2016 2:06pm Toxic Granulation 1+ 02/21/2016 2:10pm 02/21/2016 2:46pm Smudge Cells 1+ 02/21/2016 2:10pm 02/21/2016 2:46pm Nucleated Red Blood Cells 1 02/21/2016 2:10pm 02/21/2016 2:46pm Red Cell Morphology Comment ABNORMAL 03/10/2016 8:47am 03/10/2016 9 :45am Anisocytosis 1+ 03/10/2016 8:47am 03/10/2016 9:45am Poikilocytosis 1+ 03/10/2016 8:47am 03/10/2016 9:45am Ovalocytes 1+ 03/10/2016 8:47am 03/10/2016 9:45am Tear Drop Cells 1+ 03/10/2016 8:47am 03/10/2016 9:45am Icterus Index < 2 0-7 03/10/2016 8:47am 03/10/2016 9:01am Chemistry Specimen Hemolysis < 15 0-25 03/10/2016 8:47am 03/10/2016 9 :01am 0-25: Specimen Exhibited No Hemolysis. Turbidity < 20 0-20 03/10/2016 8:47am 03/10/2016 9:01am Sodium Level 145 MEQ/L H 134-144 03/10/2016 8:47am 03/10/2016 9:01am Potassium Level 4.0 MEQ/L 3.6-5 03/10/2016 8:47am 03/10/2016 9:01am Chloride Level 106 MEQ/L 98-107 03/10/2016 8:47am 03/10/2016 9:01am Carbon Dioxide Level 28 MEQ/L 22-30 03/10/2016 8:47am 03/10/2016 9: 01am Anion Gap 11 MEQ/L 5-15 03/10/2016 8:47am 03/10/2016 9:01am Blood Urea Nitrogen 16.0 MG/DL 7-17 03/10/2016 8:47am 03/10/2016 9: 01am Creatinine 0.8 MG/DL 0.7-1.2 03/10/2016 8:47am 03/10/2016 9:01am BUN/Creatinine Ratio 20 RATIO 6-26 03/10/2016 8:47am 03/10/2016 9:01am Glomerular Filtration Rate Calc 72 03/10/2016 8:47am 03/10/2016 9: 01am Glucose Level 88 MG/DL 65-110 03/10/2016 8:47am 03/10/2016 9:01am Calculated Osmolality 279 MOSM/KG 261-280 03/10/2016 8:47am 03/10/2016 9:01am Calcium Level 8.6 MG/DL 8.4-10.2 03/10/2016 8:47am 03/10/2016 9:01am Total Bilirubin 0.40 MG/DL 0.20-1.30 03/10/2016 8:47am 03/10/2016 9: 01am Alkaline Phosphatase 71 U/L 38-126 03/10/2016 8:47am 03/10/2016 9:01am Total Protein 7.2 G/DL 6.3-8.2 03/10/2016 8:47am 03/10/2016 9:01am Albumin 3.7 G/DL 3.5-5.0 03/10/2016 8:47am 03/10/2016 9:01am Globulin 3.5 G/DL 2.4-3.6 03/10/2016 8:47am 03/10/2016 9:01am Albumin/Globulin Ratio 1.1 RATIO 1.1-2.2 03/10/2016 8:47am 03/10/2016 9 :01am Aspartate Amino Transf (AST/SGOT) 23 U/L 14-36 03/10/2016 8:47am 2015 9:01am Alanine Aminotransferase (ALT/SGPT) 29 U/L 9-52 03/10/2016 8:47am 03/10 9:01am Lactate Dehydrogenase 468 U/L 313-618 03/10/2016 8:47am 03/10/2016 9: 16am Magnesium Level 2.0 MG/DL 1.6-2.3 03/10/2016 8:47am 03/10/2016 9:16am Uric Acid 4.8 MG/DL 2.5-7.5 03/10/2016 8:47am 03/10/2016 9:01am Urine Culture Indicated CULT NOT INDICATED 02/10/2016 4:40pm 2015 6:32pm C-Reactive Protein 67.4 MG/L H 0-9 02/12/2016 12:08pm 02/12/2016 12: 26pm Band Neutrophils % 1.0 % 0-6 02/15/2016 4:14am 02/15/2016 6:43am Band Neutrophils # 0.2 T/MM3 02/15/2016 4:14am 02/15/2016 6:43am Macrocytosis 1+ 02/15/2016 4:14am 02/15/2016 6:43am Polychromasia 1+ 02/16/2016 5:26am 02/16/2016 7:30am [place] Cells 2+ 02/15/2016 4:14am 02/15/2016 6:43am Target Cells 1+ 02/12/2016 5:41pm 02/12/2016 6:05pm Basophilic Stippling 1+ 02/16/2016 5:26am 02/16/2016 7:30am Absolute Reticulocyte Count 0.0163 T/MM3 L 0.0300-0.0900 02/17/2016 4: 17a02/17/2016 5:25am Percent Reticulocyte Count 0.7 % 0.6-1.7 02/17/2016 4:02/17/2016 5 :25am Immature Reticulocyte Fraction 10.7 % 3.3-14.5 02/17/2016 4:2015 5:25am Reticulocyte Hgb Content (CHr) 31.2 PG 30.8-36.6 02/17/2016 4: 5:25am Unconjugated Bilirubin 0.00 MG/DL 0.00-1.10 02/17/2016 4:2015 9:34am Conjugated Bilirubin 0.00 MG/DL 0.00-0.30 02/17/2016 4:02/17/2016 9:34am Plasma Lactate 1.6 MMOL/L 0.6-2.2 02/12/2016 5:36pm 02/12/2016 5:57pm Procalcitonin 1.89 NG/ML 02/13/2016 5:10am 02/13/2016 9:35am PCT </= 0.5 ng/mL - sepsis not likely; PCT >0.5 and </=2 ng/mL - sepsis possible; PCT >2 ng/mL - sepsis likely; PCT >/=10 ng/mL - systemic inflammatory response - sepsis or septic shock highly indicated. Iron Level 22 UG/DL L 37-170 02/17/2016 4:02/18/2016 1:32am Total Iron Binding Capacity 198 UG/DL L 261-497 02/17/2016 4:2015 1:42am Percent Iron Saturation 11 % 9-55 02/17/2016 4:02/18/2016 1:42am Ferritin 453 NG/ML H 11-264 02/17/2016 4:02/18/2016 2:16am Vitamin B12 Level > 1000 PG/ML H 239-931 02/17/2016 4:2016 2: 47am Folate 7.4 NG/ML 2.76-20 02/17/2016 [...] Parainfluenza Type 4 (PCR) NEGATIVE NEGATIVE 02/12/2016 6:2015 7:33pm Respiratory Syncytial Virus (PCR) NEGATIVE NEGATIVE 02/12/2016 6:02/12/2016 7:33pm Bordetella parapertussis DNA (PCR) NEGATIVE NEGATIVE 02/12/2016 6: 1302/12/2016 7:33pm Chlamydia pneumoniae DNA (PCR) NEGATIVE NEGATIVE 02/12/2016 6:13pm 7:33pm Mycoplasma pneumoniae (PCR) NEGATIVE NEGATIVE 02/12/2016 6:02/11 7:33pm Urine Collection Type CLEANCATCH-MIDSTREAM 02/12/2016 7:2015 7:33pm Urine Color YELLOW YELLOW 02/12/2016 7:02/12/2016 7:33pm Urine Turbidity CLEAR CLEAR 02/12/2016 7:02/12/2016 7:33pm Urine Specific [place] >=1.030 H 1.015-1.025 02/12/2016 7:2015 7:33pm Urine [...] 7:33pm Urine WBC 0-1 /HPF 0-5 02/12/2016 7:pm 02/12/2016 7:42pm Urine RBC 0-1 /HPF 0-3 02/12/2016 7:02/12/2016 7:42pm Urine Squamous Epithelial Cells 0-5 02/12/2016 7:28pm 02/12/2016 7: 42pm Urine Bacteria 2+ H NEGATIVE 02/12/2016 7:28pm 02/12/2016 7:42pm Urine Calcium Oxalate Crystals MODERATE 02/12/2016 7:28pm 2015 7:42pm Urine Mucus PRESENT 02/12/2016 7:28pm 02/12/2016 7:42pm Urine Hyaline Casts 0-1 /LPF 02/12/2016 7:28pm 02/12/2016 7:42pm Urine Culture Indicated CULT NOT INDICATED 02/12/2016 7:28pm 2015 7:42pm Microbiology Results Procedure Source Organism/Result [...] 5 DAYS 02/13/2016 1:56pm 02/18/2016 2:02pm Final Name: VICKI YATES Unit #: [id number] : 1950 Sex: F DISCHARGE SUMMARY Admit Date: 02/12/16 Report #: [id number] [facility] General Date Date DATE: 02/18/16 TIME: 18:46 Attending Physician Phuong Velazco MD Admitting Physician Phuong Velazco MD Consulting Physician Marii Barajas M.D., Gregg M.D. Admitting Diagnosis fever, immunosuppressed, CLL Discharge Diagnosis 1. Adverse drug reaction with generalized rash-likely to Invanz or allopurinol 2. Thrush 3. Urinary retention, resolved 4. Dehydration, resolved 5. Superficial wounds due to skin slough 6. CLL 7. Hypothyroidism 8. Anemia of malignancy Laboratory Laboratory Tests Test 02/18/16 04:41 White Blood Count 17.7T/MM3 (4.5-11.0) Red Blood Count 2.39M/MM3 (4.00-5.20) Hemoglobin 7.9GM/DL (12-16) Hematocrit 25.5% (36-46) Mean Corpuscular Volume 106.7UM3 (80-100) Mean Corpuscular Hemoglobin 33.1UUG (26-34) Mean Corpuscular Hemoglobin Concent 31.0GM/DL (31-37) RDW Standard Deviation 62.9FL (36.9-50.2) Platelet Count 208T/MM3 (130-400) Mean Platelet Volume 9.8UM3 (9.4-12.4) Immature Granulocyte % (Auto) % (0.0-0.5) Neutrophils (%) (Auto) % (33-66) Lymphocytes (%) (Auto) % (23-45) Monocytes (%) (Auto) % (0-9.0) Eosinophils (%) (Auto) % (0-4) Basophils (%) (Auto) % (0-2) Absolute Immature Granulocyte (auto T/MM3 (0.00-0.03) Absolute Neutrophils (auto) T/MM3 (1.8-7.7) Absolute Lymphocytes (auto) T/MM3 (1-4.8) Absolute Monocytes (auto) T/MM3 (0-0.8) Absolute Eosinophils (auto) T/MM3 (0-0.5) Absolute Basophils (auto) T/MM3 (0-0.2) Neutrophils % (Manual) 23.0% (33-66) Lymphocytes % (Manual) 74.0% (23-45) Reactive Lymphocytes % 2.0% (0-0) Monocytes % (Manual) 1.0% (0-9.0) Absolute Neutrophils (Manual) 4.1T/MM3 (1.8-7.7) Lymphocytes # (Manual) 13.1T/MM3 (1-4.8) Reactive Lymphocytes # 0.4T/MM3 (0-0) Monocytes # (Manual) 0.2T/MM3 (0-0.8) Smudge Cells 3+ Anisocytosis 1+ Red Cell Morphology Comment Abnormal Turbidity < 20 (0-20) Sodium Level 139MEQ/L (134-144) Potassium Level 3.7MEQ/L (3.6-5) Chloride Level 105MEQ/L (98-107) Carbon Dioxide Level 28MEQ/L (22-30) Anion Gap 6MEQ/L (5-15) Blood Urea Nitrogen 19.0MG/DL (7-17) Creatinine 0.8MG/DL (0.7-1.2) Glomerular Filtration Rate Calc 72 BUN/Creatinine Ratio 24RATIO (6-26) Glucose Level 72MG/DL (65-110) Calculated Osmolality 269MOSM/KG (261-280) Calcium Level 7.7MG/DL (8.4-10.2) Icterus Index < 2 (0-7) Chemistry Specimen Hemolysis < 15 (0-25) White count on admission 26.5 with hemoglobin 10.0, creatinine 1.0 on admission. Liver enzymes normal on 02/12, LDH 463 Serum iron 22, TIBC 198, iron saturation 11%, ferritin 453, vitamin B-12 > 1000 , folic acid 7.4 Microbiology GI panel negative, C. difficile toxin negative Group A strep antigen and culture negative Blood cultures 2 negative History of Present Illness Patient presents to the emergency room on referral from her oncologist. She has a history of chronic lymphocytic leukemia, Shes had this diagnosis for 3 years, her team decided to begin treatment based on increasing lymphadenopathy in the intra-abdominal region, they began Chemotherapy 2 weeks ago (PO Imbruvica) She went in for a check of his previous , peripheral white blood cell count decreasing quickly, and shes had her oral chemotherapy held since . Around that time she began having sore throat and low-grade fever with temperature 99.3 in the office. Invanz was initiated and the patient followed up in the office the following day for second infusion. Immediately after antibiotics were given on Sunday generalized macular rash was noted. Later in the day she developed generalized urticaria. Along with the rash. shes had significantly swollen lips and neck region along with sores in the back of her throat. She is feeling generally run down. A third infusion of Invanz was given on the date of admission but due to persistent rash and worsening symptoms she was referred for hospitalization. Emergency room evaluation strep test is negative, lactate 1.7, respiratory panel unremarkable. Patient seen in outpatient infusion today. Invantz stopped, Zithromax begun, Blood c/s repeated. Prior c/s neg to date. Pt with fevers that led to IV invantz, Rash and oral mucositis began after this on sunday. Sun aqnd sat pt developed mucositis and nausea that led to poor po intake, no abd pain, no cough dyspnea, no sputum production, no dysuria, frequency, etc Hospital Course Patient was hospitalized with concern of acute streptococcal infection causing rash and pharyngitis. Broad-spectrum antibiotics were initiated with cefepime, vancomycin, and Levaquin. One more detailed history was available following day. Became clear that rash followed the second dose of antibiotics and did not preceded treatment with antibiotics concern focused on allergic drug reaction to Invanz. Cefepime was discontinued. He was then seen by Dr. Barajas from infectious disease who recommended discontinuation of all antibiotics. Supportive care was recommended. She was seen by Dr. Varela throughout the hospitalization. There was concern for possible Barros-Christopher syndrome due to allopurinol however there was minimal vesicular disease and rash was nontender. Allopurinol was nonetheless discontinued. The patient did develop some vesicles which ruptured on her buttocks and a few on the inner thighs attributed to irritation from the Villarreal catheter. One day prior to discharge she developed multiple tiny vesicles on her lips which resolved by the following morning. RAST testing can be considered in the near future to better determine cause of allergic reaction. Management was largely asymptomatic throughout the hospital stay she was briefly on steroids but these were discontinued to minimize risk of infection. She was treated with H1 and H2 blockers, viscous lidocaine/with a solution for oral comfort, nutritional supplements, IV fluids, and pain medications. Wound care saw the patient throughout the hospitalization and areas on her buttocks were treated with A&D Ointment with nonadhesive dressings. Urinary retention was present on admission and Villarreal catheter was necessary. Catheter was discontinued the morning of discharge and she was voided without difficulty several times prior to discharge. Thrush developed several days into the hospitalization and oral fluconazole was initiated. Oral symptoms improved, treatment is ongoing at discharge. The patient became volume overloaded due to fluid replacement administered early in the hospitalization, weight was up 10 kg at one point during the hospitalization before diuretics were initiated. She diuresed well with low dose Lasix taking off 6 kg prior to discharge. Further diuretics were not felt to be needed at discharge. On 02/17 the patient was maintaining good intake of soft foods only administration of swizzle. Overall she reports feeling much better that she had earlier and is tolerating activity in her room without difficulty. Patient felt ready for discharge at this time. Rash was fading progressively and there've been no urticarial lesions since admission. She has residual vesicular lesions on the inner thighs but no ulcerations in the oropharynx. Breath sounds are clear and facial edema has resolved. Wound care will remain as previously described. Patient is to follow up with Dr. Varela for reassessment on 02/20 and is asked to follow-up with Dr. Escamilla as needed. Medications were reviewed with the patient in detail. >30 minutes spent on patient care and discharge care coordination today on the date of discharge. -- Problems: (1) Adverse drug reaction Status: Acute Assessment & Plan: Suspected drug reaction to Invanz (2) Thrush of mouth and esophagus Status: Acute Assessment & Plan: fluconazole started 02/15 (3) Pharyngitis Status: Acute (4) Rash of entire body Status: Acute (5) Urinary retention Status: Resolved Assessment & Plan: Villarreal inserted 02/13; out 02/17 (6) Dehydration Status: Resolved (7) Immunosuppressed status Status: Chronic (8) Chronic lymphocytic leukemia Onset Date: ~ 2012 Status: Chronic (9) Hypothyroid Status: Chronic (10) Anemia Status: Chronic Assessment & Plan: Chronic anemia of malignancy/CLL (11) Leukocytosis (12) Hyponatremia Onset Date: 02/14/2016 Status: Resolved Code Status Full Code Home Meds Active Scripts Famotidine (Famotidine) 20 Mg Tablet, 20 MG PO BID, #60 TAB Prov:PHUONG VELAZCO MD 02/18/16 Fluconazole (Fluconazole) 100 Mg Tablet, 100 MG PO DAILY for thrush for 7 Days, #7 TAB Prov:PHUONG VELAZCO MD 02/18/16 [magic mouthwash] No Conflict Check, 5 ML SSW QID, #200 ML SIMETHICONE, DIPENHYDRAMINE, LIDOCAINE 1:1:1 Prov:PHUONG VELAZCO MD 02/18/16 Hydrocodone/Acetaminophen (Hydrocodon-Acetaminophen 5-325) 5-325 Tablet, 1-2 TAB PO Q4HR Y for PAIN, #30 Prov:PHUONG VELAZCO MD 02/18/16 Reported Medications Acetaminophen (Acetaminophen) 500 Mg Tablet, 1000 MG PO Q8H Y for PAIN 02/12/16 Ibuprofen (Ibuprofen) 200 Mg Tablet, 400 MG PO Q4H Y for PAIN 02/12/16 Loratadine (Claritin) 10 Mg Tablet, 10 MG PO DAILY 02/12/16 Lorazepam (Ativan) 0.5 Mg Tablet, 0.5 MG PO Q4H Y for ANXIETY 02/12/16 Citalopram Hydrobromide (Citalopram HBr) 20 Mg Tablet, 20 MG PO DAILY 02/12/16 Tamsulosin HCl (Tamsulosin HCl) 0.4 Mg Cap.er.24h, 0.4 MG PO DAILY Y for PRN ORDERS 02/12/16 Acyclovir (Acyclovir) 400 Mg Tablet, 400 MG PO BID 02/12/16 Levothyroxine Sodium (Levothyroxine Sodium) 150 Mcg Tablet, 150 MCG PO ACB 02/12/16 Discontinued Reported Medications Ibrutinib (Imbruvica) 140 Mg Capsule, 420 MG PO DAILY 02/12/16 Allopurinol (Allopurinol) 300 Mg Tablet, 300 MG PO DAILY 02/12/16 Discharge Disposition Home Copies To 1: MARII BARAJAS MD; CHRISTOPHER VARELA; REINALDO CARDENAS MD Documentation Requirements Anemia Anemia Acuity: Chronic (chronic disease/malignancy) PHUONG VELAZCO MD Feb 18, 2016 18:55 Procedures Procedure Status Date Provider(s) ROUTINE VENIPUNCTURE [...] CT ABD & PELV W/CONTRAST Completed 01/12/16 397875"INFUSION, NORMAL SALINE SOLUTION , 250 CC" Completed 01/12/16 [id number]"LOW OSMOLAR CONTRAST MATERIAL, 300-399 MG/ML IODINE C [...] Location Arrival/Admit Date Discharge/Depart Date Attending Provider Registered [facility] 03/10/16 8:42am CHRISTOPHER VARELA Discharged Inpatient [facility] 02/12/16 7:54pm 02/18/16 3:16pm PHUONG VELAZCO MD Discharged [facility] 02/12/16 10:35am 02/12/16 1:00pm CHRISTOPHER VARELA Discharged [facility] 02/11/16 9:53am 03/27/16 11:59pm CHRISTOPHER VARELA Registered [facility] 01/17/16 3:37pm CHRISTOPHER VARELA Registered Clinic [facility] 01/12/16 1:04pm CHRISTOPHER VARELA Registered [facility] 12/30/15 8:04am CHRISTOPHER VARELA
--- OUTSIDE RECORDS SUMMARY | 2016-07-10 22:00 | XMS REPORT | Continuity of Care Document ---
Author Author [facility] Organization [facility] Address Unknown Phone Unavailable Support Name Relationship Address Phone PHUONG VELAZCO MD Caregiver [address] [place] [phone] Unavailable YASMINE SCHAEFER MD Caregiver [address] [place] [address] [place] [address] Unavailable REINALDO CARDENAS MD Caregiver [address] [place] [address] Unavailable KATELYNN BUENO MD Caregiver [address] [place] [address] [place] [address] Unavailable TRUDYGISELA [place] Next Of Kin [address] [place] [address] Insurance Providers Guarantor Vicki Yates Address [address] [address] Email [email or web address] Payer Medicare Policy Number [id number] Subscriber's Name Vicki Yates Relationship 18 Self Payer [facility] Policy Number [id number] Subscriber's Name Vicki Yates Relationship 18 Self [...] office at After Business Hours:: Please call [phone] and have the shadowgraph operator page the physician. Condition at time [...] - 99.1) 02/18/2016 4:01am Temperature (Calculated Celsius) 36.63637 degrees C (36.0 - 37.3) 02/18/2016 4:01am [...] Reference Collection Date/Time Result Date/ Time Comments Erythropoietin 54.3 mIU/mL H 01/17/2016 3:52pm 01/19/2016 3:53pm Reference Range: 2.6 - 18.5 Test Performed by: [place] [address] Pouncer: Gustavo Young II, M.D., Ph.D. Erythropoietin performed at [facility], [address] [place] [address] Tire Maintenance Technician Hector Salvador MD Haptoglobin 204 mg/dL H 36-195 01/17/2016 3:52pm 01/17/2016 10:32pm Haptoglobin performed at [facility], [address] [place] [address] Tire Maintenance Technician Alba Torres DO Homocysteine 4.5 umol/L 4.0-14.0 01/17/2016 3:52pm 01/17/2016 10:04pm Homocysteine performed at [facility], [address] [place] [address] Tire Maintenance Technician Alba Torres DO Methylmalonic Acid 0.15 nmol/mL <=0.40 01/17/2016 3:52pm 01/21/2016 10: 11am Test Performed by: [place] [address] Pouncer: Gustavo Young II, M.D., Ph.D. Methylmalonic Acid, Serum performed at [facility], [address] [place] [address] Tire Maintenance Technician Hector Salvador MD Phosphorus Level 3.4 MG/DL 2.5-4.5 01/19/2016 10:25am 01/19/2016 11: 08am Erythrocyte Sedimentation Rate 48 mm/h H 0-23 02/11/2016 8:30am 2015 4:18pm Sedimentation Rate performed at [facility], [address] [place] [address] Tire Maintenance Technician Alba Torres DO White Blood Count 13.0 T/MM3 H 4.5-11.0 03/28/2016 8:24am 03/28/2016 8: 33am Red Blood Count 3.40 M/MM3 L 4.00-5.20 03/28/2016 8:24am 03/28/2016 8: 33am Hemoglobin 10.9 GM/DL L 12-16 03/28/2016 8:24am 03/28/2016 8:33am Hematocrit 35.3 % L 36-46 03/28/2016 8:24am 03/28/2016 8:33am Mean Corpuscular Volume 103.8 UM3 H 80-100 03/28/2016 8:24am 03/28/2016 8:33am Mean Corpuscular Hemoglobin 32.1 UUG 26-34 03/28/2016 8:24am 2015 8:33am Mean Corpuscular Hemoglobin Concent 30.9 GM/DL L 31-37 03/28/2016 8:24am 03/28/2016 8:33am RDW Standard Deviation 59.2 FL H 36.9-50.2 03/28/2016 8:24am 03/28/2016 8:33am Platelet Count 181 T/MM3 130-400 03/28/2016 8:24am 03/28/2016 8:33am Mean Platelet Volume 8.9 UM3 L 9.4-12.4 03/28/2016 8:24am 03/28/2016 8: 33am Neutrophils % (Manual) 7.0 % L 33-66 03/28/2016 8:24am 03/28/2016 8: 48am Lymphocytes % (Manual) 93.0 % H 23-45 03/28/2016 8:24am 03/28/2016 8: 48am Monocytes % (Manual) 4.0 % 0-9.0 02/28/2016 [...] 02/10/2016 1:26pm 02/10/2016 2:06pm Absolute Neutrophils (Manual) 0.9 T/MM3 L 1.8-7.7 03/28/2016 8:24am 8:48am Lymphocytes # (Manual) 12.1 T/MM3 H 1-4.8 03/28/2016 8:24am 03/28/2016 8 :48am Monocytes # (Manual) 0.4 T/MM3 0-0.8 02/28/2016 [...] 2:10pm 02/21/2016 2:46pm Red Cell Morphology Comment NORMAL 03/28/2016 8:24am 03/28/2016 8: 48am Anisocytosis 1+ 03/10/2016 8:47am 03/10/2016 9:45am Poikilocytosis 1+ 03/10/2016 8:47am 03/10/2016 9:45am Ovalocytes 1+ 03/10/2016 8:47am 03/10/2016 9:45am Tear Drop Cells 1+ 03/10/2016 8:47am 03/10/2016 9:45am Icterus Index < 2 0-7 03/28/2016 8:24am 03/28/2016 8:37am Chemistry Specimen Hemolysis < 15 0-25 03/28/2016 8:24am 03/28/2016 8 :37am 0-25: Specimen Exhibited No Hemolysis. Turbidity < 20 0-20 03/28/2016 8:24am 03/28/2016 8:37am Sodium Level 143 MEQ/L 134-144 03/28/2016 8:24am 03/28/2016 8:37am Potassium Level 4.2 MEQ/L 3.6-5 03/28/2016 8:24am 03/28/2016 8:37am Chloride Level 105 MEQ/L 98-107 03/28/2016 8:24am 03/28/2016 8:37am Carbon Dioxide Level 28 MEQ/L 22-30 03/28/2016 8:24am 03/28/2016 8: 37am Anion Gap 10 MEQ/L 5-15 03/28/2016 8:2403/28/2016 8:37am Blood Urea Nitrogen 21.0 MG/DL H 7-17 03/28/2016 8:03/28/2016 8: 37am Creatinine 0.8 MG/DL 0.7-1.2 03/28/2016 8:2403/28/2016 8:37am BUN/Creatinine Ratio 26 RATIO 6-26 03/28/2016 8:03/28/2016 8:37am Glomerular Filtration Rate Calc 72 03/28/2016 8:03/28/2016 8: 37am Glucose Level 85 MG/DL 65-110 03/28/2016 8:03/28/2016 8:37am Calculated Osmolality 277 MOSM/KG 261-280 03/28/2016 8:03/28/2016 8:37am Calcium Level 8.9 MG/DL 8.4-10.2 03/28/2016 8:03/28/2016 8:37am Total Bilirubin 0.50 MG/DL 0.20-1.30 03/28/2016 8:03/28/2016 8: 37am Alkaline Phosphatase 69 U/L 38-126 03/28/2016 8:03/28/2016 8:37am Total Protein 7.1 G/DL 6.3-8.2 03/28/2016 8:03/28/2016 8:37am Albumin 3.5 G/DL 3.5-5.0 03/28/2016 8:03/28/2016 8:37am Globulin 3.6 G/DL 2.4-3.6 03/28/2016 8:03/28/2016 8:37am Albumin/Globulin Ratio 1.0 RATIO L 1.1-2.2 03/28/2016 8:03/28/2016 8:37am Aspartate Amino Transf (AST/SGOT) 26 U/L 14-36 03/28/2016 8:2015 8:37am Alanine Aminotransferase (ALT/SGPT) 33 U/L 9-52 03/28/2016 8:2403/28 8:37am Lactate Dehydrogenase 468 U/L 313-618 03/28/2016 8:2403/28/2016 8: 50am Magnesium Level 2.0 MG/DL 1.6-2.3 03/28/2016 8:24am 03/28/2016 8:50am Uric Acid 4.6 MG/DL 2.5-7.5 03/28/2016 8:24am 03/28/2016 8:37am Urine Culture Indicated CULT NOT INDICATED 02/10/2016 4:40pm 2015 6:32pm C-Reactive Protein 67.4 MG/L H 0-9 02/12/2016 12:08pm 02/12/2016 12: 26pm Band Neutrophils % 1.0 % 0-6 02/15/2016 4:14am 02/15/2016 6:43am Band Neutrophils # 0.2 T/MM3 02/15/2016 4:14am 02/15/2016 6:43am Macrocytosis 1+ 02/15/2016 4:14am 02/15/2016 6:43am Polychromasia 1+ 02/16/2016 5:26am 02/16/2016 7:30am Sanyd Cells 2+ 02/15/2016 4:14am 02/15/2016 6:43am Target Cells 1+ 02/12/2016 5:41pm 02/12/2016 6:05pm Basophilic Stippling 1+ 02/16/2016 5:26am 02/16/2016 7:30am Absolute Reticulocyte Count 0.0163 T/MM3 L 0.0300-0.0900 02/17/2016 4: 17am 02/17/2016 5:25am Percent Reticulocyte Count 0.7 % 0.6-1.7 02/17/2016 4:17am 02/17/2016 5 :25am Immature Reticulocyte Fraction 10.7 % 3.3-14.5 02/17/2016 4:17am 2015 5:25am Reticulocyte Hgb Content (CHr) 31.2 PG 30.8-36.6 02/17/2016 4:17am 5:25am Unconjugated Bilirubin 0.00 MG/DL 0.00-1.10 02/17/2016 4:17am 2015 9:34am Conjugated Bilirubin 0.00 MG/DL 0.00-0.30 02/17/2016 4:17am 02/17/2016 9:34am Plasma Lactate 1.6 MMOL/L 0.6-2.2 02/12/2016 [...] parapertussis DNA (PCR) NEGATIVE NEGATIVE 02/12/2016 6: pm 02/12/2016 7:33pm Chlamydia pneumoniae DNA (PCR) NEGATIVE NEGATIVE 02/12/2016 6: 7:33pm Mycoplasma pneumoniae (PCR) NEGATIVE NEGATIVE 02/12/2016 6:13pm 02/11 7:33pm Urine Collection Type CLEANCATCH-MIDSTREAM 02/12/2016 7:2015 7:33pm Urine Color YELLOW YELLOW 02/12/2016 7:28pm 02/12/2016 7:33pm Urine Turbidity CLEAR CLEAR 02/12/2016 7:28pm 02/12/2016 7:33pm Urine Specific [place] >=1.030 H 1.015-1.025 02/12/2016 7:28pm 2015 7:33pm Urine pH 5.5 5.0-8.0 02/12/2016 7:28pm 02/12/2016 7:33pm Urine Leukocyte Esterase NEGATIVE NEGATIVE 02/12/2016 7:28pm 2015 7:33pm Urine Nitrite NEGATIVE NEGATIVE 02/12/2016 7:28pm 02/12/2016 7:33pm Urine Protein 2+ A NEGATIVE 02/12/2016 7:28pm 02/12/2016 7:33pm Urine Glucose (UA) NEGATIVE NEGATIVE 02/12/2016 7:28pm 02/12/2016 7: 33pm Urine Ketones NEGATIVE NEGATIVE 02/12/2016 7:28pm 02/12/2016 7:33pm Urine Urobilinogen 0.2 EU/DL NORMAL 02/12/2016 7:28pm 02/12/2016 7: 33pm Urine Bilirubin NEGATIVE NEGATIVE 02/12/2016 7:pm 02/12/2016 7: 33pm Urine Blood NEGATIVE NEGATIVE 02/12/2016 7:28pm 02/12/2016 7:33pm Urine WBC 0-1 /HPF 0-5 02/12/2016 7:28pm 02/12/2016 7:42pm Urine RBC 0-1 /HPF 0-3 02/12/2016 7:28pm 02/12/2016 7:42pm Urine Squamous Epithelial Cells 0-5 02/12/2016 7:28pm 02/12/2016 7: 42pm Urine Bacteria 2+ H NEGATIVE 02/12/2016 7:28pm 02/12/2016 7:42pm Urine Calcium Oxalate Crystals MODERATE 02/12/2016 7:28pm 2015 7:42pm Urine Mucus PRESENT 02/12/2016 7:02/12/2016 7:42pm Urine Hyaline Casts 0-1 /LPF 02/12/2016 7:28pm 02/12/2016 7:42pm Urine Culture Indicated CULT NOT INDICATED 02/12/2016 7:282015 7:42pm Microbiology Results Procedure Source Organism/Result Collection [...] 2:02pm Final Name: VICKI YATES Unit #: [id number] : 1950 Sex: F DISCHARGE SUMMARY Admit Date: 02/12/16 Report #: [id number] [facility] General Date Date DATE: 02/18/16 TIME: 18:46 [...] mucositis began after this on sunday. Sun sat pt developed mucositis and nausea that [...] 2016 18:55 Procedures Procedure Status Date Provider(s) CT SOFT TISSUE NECK W/DYE Completed 01/12/16 CT THORAX W/DYE Completed 01/12/16 CT ABD & PELV W/CONTRAST Completed 01/12/16 067884"INFUSION, NORMAL SALINE SOLUTION , 250 CC" Completed 01/12/16 908616"LOW OSMOLAR CONTRAST MATERIAL, 300-399 MG/ML IODINE C [...] Arrival/Admit Date Discharge/Depart Date Attending Provider Discharged [facility] 03/28/16 8:10am 04/01/16 11:45pm CHRISTOPHER VARELA Discharged Inpatient [facility] 02/12/16 7:54pm 02/18/16 3:16pm PHUONG VELAZCO MD Discharged Recurring [facility] 02/12/16 10:35am 02/12/16 1:00pm CHRISTOPHER VARELA Discharged [facility] 02/11/16 9:53am 03/27/16 11:59pm CHRISTOPHER VARELA [facility] 01/17/16 3:37pm CHRISTOPHER VARELA [facility] 01/12/16 1:04pm CHRISTOPHER VARELA
--- OUTSIDE RECORDS SUMMARY | 2016-07-10 22:00 | XMS REPORT ---
Author Author [facility]. Organization [facility] Address [address] [place] [address] Phone [phone] Summary purpose CCDA Sent to [facility] Chief Complaint and Reason for Visit No authorized Reason for Visit (Admitting Diagnosis) is available for this visit. Problem list No authorized problems tracked for continuity of care are available for this visit. Encounters No authorized problems tracked for encounter diagnoses are available for this visit. Medications No medications recorded for this patient visit Allergies, adverse reactions, alerts No allergy information is available for this patient. Immunizations No immunizations recorded for this patient visit Relevant diagnostic tests and/or laboratory data RESULTS [facility] [id number]:25:00 Result Normal Range Units TSH 2.47 0.50-6.00 uIU/mL History of procedures No procedures recorded for this patient visit. Functional status No functional or cognitive status observations are available for this visit. Vital signs No authorized vital signs are available for this visit. Social history No Social History or smoking status observations were recorded for this visit. ( Unknown if ever smoked.) Treatment Plan No treatment plan text is available for this visit. Hospital discharge instructions No discharge instruction text is available for this visit.
--- OUTSIDE RECORDS SUMMARY | 2016-07-10 22:00 | XMS REPORT | Continuity of Care Document ---
Author Author [facility] Organization [facility] Address Unknown Phone Unavailable Allergies Medications Problems Date Dx Coded Attending Type Code Diagnosis Diagnosed By 06/03/2013 INGRID BRUNO MD, REINALDO Ang 244.9 HYPOTHYROIDISM NOS 03/16/2015 INGRID BRUNO MD, REINALDO Ang E03.9 Hypothyroidism, unspecified 05/27/2015 INGRID BRUNO MD, REINALDO Ang E03.9 Hypothyroidism, unspecified 05/27/2015 INGRID BRUNO MD, REINALDO Ang I45.81 Long QT syndrome 06/03/2015 REINALDO CARDENAS MD I45.81 Long QT syndrome 03/17/2016 INGRID BRUNO MD, REINALDO Ang E03.9 Hypothyroidism, unspecified Procedures Code Description [place] [address] ASSAY THYROID STIM HORMONE INGRID BRUNO MD, REINALDO Damon 06/03/2013 [id number] ASSAY THYROID STIM HORMONE INGRID BRUNO MD, REINALDO Damon 03/16/2015 [id number] ASSAY THYROID STIM HORMONE INGRID BRUNO MD, REINALDO R 05/27/2015 [id number] ELECTROCARDIOGRAM, TRACING INGRID BRUNO MD, REINALDO Damon 05/27/2015 99236 METABOLIC PANEL TOTAL CA INGRID BRUNO MD, REINALDO R 06/03/2015 [id number] ASSAY THYROID STIM HORMONE INGRID BRUNO MD, REINALDO R 03/17/2016 Results Test Result Range TSH - 06/03/13 14:50 TSH 3.45 UIUML 0.50-6.00 TSH - 03/17/15 08:16 TSH 30.92 UIUML 0.50-6.00 TSH - 05/27/15 16:47 TSH 3.29 UIUML 0.50-6.00 Basic Metabolic Panel - 06/04/15 08:19 Sodium 140 MMOLL 134-145 Potassium 4.1 MMOLL 3.6-5.0 Chloride 100 MMOLL 98-107 CO2 28 MMOLL 22-30 Glucose 89 MG/DL 75-110 BUN 16 MG/DL 9-20 Creatinine .89 MG/DL 0.8-1.7 Calcium 8.7 MG/DL 8.4-10.2 TSH - 03/17/16 13:48 TSH 2.47 UIUML 0.50-6.00 Encounters ACCT No. Visit Date/Time Discharge Status Pt. Type Provider Facility Loc./Unit Complaint [id number] 03/17/2016 12:47:00 03/17/2016 12:47:00 DIS Outpatient INGRID BRUNO MD, [facility] [id number] 06/03/2015 10:46:00 06/03/2015 10:46:00 DIS Outpatient INGRID BRUNO MD, [facility] [id number] 05/27/2015 15:50:00 05/27/2015 15:50:00 CAN Outpatient INGRID BRUNO MD, [facility] [id number] 05/27/2015 14:25:00 05/27/2015 14:25:00 DIS Outpatient INGRID BRUNO MD, [facility] [id number] 03/17/2015 07:23:00 03/17/2015 07:23:00 DIS Outpatient INGRID BRUNO MD, [facility] [id number] 05/02/2014 19:33:00 05/02/2014 19:33:00 DIS Outpatient INGRID BRUNO MD, [facility] [id number] 06/03/2013 15:32:00 06/03/2013 15:32:00 DIS Outpatient INGRID BRUNO MD, [facility]
--- OUTSIDE RECORDS SUMMARY | 2016-07-10 22:00 | XMS REPORT | Continuity of Care Document ---
Author Author [facility] Organization [facility] Address Unknown Phone Unavailable Support Name Relationship Address Phone POLO BLACK MD Caregiver [address] [place] [id number] Unavailable YASMINE SCHAEFER MD Caregiver [address] [place] [address] [employer] [place] [address] Unavailable REINALDO CARDENAS MD Caregiver [address] [place] [address] Unavailable KATELYNN BUENO MD Caregiver [address] [place] [address] [place] [address] Unavailable TRUDYGISELA [place] Next Of Kin [address] [place] [id number] Insurance Providers Guarantor Angelica Coyne Address [address] [address] Email [email or web address] Payer Medicare Policy Number [id number] Subscriber's Name Angelica Coyne Relationship 18 Self Payer [facility] [employer] [facility] Policy Number [id number] Subscriber's Name Angelica Coyne Relationship 18 Self Group Number [id number] Advance Directives Directive Response Recorded Date/Time Ordered Resuscitation Status Full Code 02/12/16 7:54pm Resuscitation Documents on File No 02/12/16 8:47pm DPOA for Healthcare Only No 02/13/16 10:34am Living Will No 02/12/16 8:47pm Advanced Directive or Resuscitation Comments full code 02/12/16 8:47pm Chief Complaint and Reason for Visit Chief Complaint FEVER/IMMUNOSUPPRESSED Reason for Visit Adverse drug reaction Anemia Problems Active Problems Medical Problem Onset Date Status Adverse drug reaction Unknown Acute Anemia Unknown Chronic Chronic lymphocytic leukemia Unknown Chronic Dehydration Unknown Resolved Fever Unknown Acute Hyponatremia 02/14/2016 Acute Hypothyroid Unknown Chronic Immunosuppressed status Unknown Chronic Leukocytosis Unknown Pharyngitis Unknown Acute Rash of entire body Unknown Acute SIRS due to infectious process without acute organ dysfunction Unknown Acute Urinary retention Unknown Acute Medications Current Home Medications Medication Dose Units Route Directions Days Qty Instructions Start Date Acetaminophen 500 Mg Tablet 1,000 Mg Oral Every 8 Hours as needed for Pain 02/12/16 Acyclovir 400 Mg Tablet 400 Mg Oral Twice A Day 02/12/16 Allopurinol 300 Mg Tablet 300 Mg Oral Daily 02/12/16 Citalopram Hydrobromide (Citalopram Hbr) 20 Mg Tablet 20 Mg Oral Daily 02/12/16 Hydrocodone/Acetaminophen (Hydrocodon-Acetaminophen 5-325) 5-325 Tablet 1 Tab Oral Every 4 Hours as needed for Pain 02/12/16 Ibrutinib (Imbruvica) 140 Mg Capsule 420 Mg Oral Daily 02/12/16 Ibuprofen 200 Mg Tablet 400 Mg Oral Every 4 Hours as needed for Pain 02/12/16 Levothyroxine Sodium 150 Mcg Tablet 150 Mcg Oral Before Breakfast 02/12/16 Loratadine (Claritin) 10 Mg Tablet 10 Mg Oral Daily 02/12/16 Lorazepam (Ativan) 0.5 Mg Tablet 0.5 Mg Oral Every 4 Hours as needed for Anxiety 02/12/16 Magic Mouthwash 1 Dose Swish And Swallow Four Times Daily SIMETHICONE, DIPENHYDRAMINE, LIDOCAINE 1:1:1 02/12/16 Tamsulosin Hcl 0.4 Mg Cap.er.24h 0.4 Mg Oral Daily as needed for Prn Orders 02/12/16 Social History Query Response Start Date Stop Date Smoking Status Never smoker Hospital Discharge Instructions No hospital discharge instructions. Plan of Care Discharge Date 02/12/16 8:27pm Disposition 30 STILL A PATIENT Instructions/Education Provided DI for Fever (Symptom) -- Adult Prescriptions See Medication Section Functional Status Query Response Date Recorded Mobility Status Ambulatory w/assist February 15, 2016 8:33pm Assistive Devices None February 15, 2016 8:33pm Activity Limitations Weakness Fatigue February 15, 2016 8:33pm Feeding Ability Independent February 15, 2016 8:33pm Toileting Ability Assist February 15, 2016 8:33pm Grooming Ability Independent February 15, 2016 8:33pm Dressing Ability Assist February 15, 2016 8:33pm Driving Ability Assist February 15, 2016 8:33pm Housework Ability Assist February 15, 2016 8:33pm Meal Preparation Ability Assist February 15, 2016 8:33pm Stair Climbing Ability Assist February 15, 2016 8:33pm Ability to complete ADL's impeded by Impaired Mobility February 15, 2016 8:33pm Cognitive/Perceptual Impairments Impaired vision February 15, 2016 8:33pm Visual Assistive Devices Glasses February 15, 2016 [...] Vital Signs Vital Response Date/Time Temperature (Fahrenheit) 96.0 deg F (96.8 - 99.1) 02/16/2016 8:09am Temperature (Calculated Celsius) 35.79826 degrees C (36.0 - 37.3) 02/16/2016 8:09am Pulse Rate (adult) 84 bpm (60 - 100) 02/16/2016 8:34am Respiratory Rate 16 breaths/min (10 - 20) 02/16/2016 8:46am O2 Sat by Pulse Oximetry 98 % (90 - 100) 02/16/2016 8:09am Oxygen Delivery Method Room Air 02/13/2016 8:19pm Oxygen Delivery Method Room Air 02/16/2016 8:09am Blood Pressure 114/65 mm Hg 02/16/2016 8:09am Blood Pressure Source Automatic Cuff 02/16/2016 8:09am Height (Feet) 5 feet 02/15/2016 4:09pm Height (Inches) 6.00 inches 02/15/2016 4:09pm Weight (Kilograms) 69.900 kg 02/16/2016 7:47am Body Mass Index (BMI) 21.5 02/12/2016 8:46pm [...] potentially toxic. Vitamin D, 25-Hydroxy performed at [facility], [address] [place] [address] Meal Attendant Alba Torres, Absolute Reticulocyte Count 0.0325 T/MM3 0.0300-0.0900 01/17/2016 3: 52pm 01/17/2016 4:00pm Percent Reticulocyte Count 1.2 % 0.6-1.7 01/17/2016 3:52pm 01/17/2016 4 :00pm Immature Reticulocyte Fraction 17.4 % H 3.3-14.5 01/17/2016 3:52pm 01/16 4:00pm Reticulocyte Hgb Content (CHr) 39.2 PG H 30.8-36.6 01/17/2016 3:52pm 4:00pm Iron Level 39 UG/DL 37-170 01/17/2016 3:52pm 01/19/2016 2:03am Total Iron Binding Capacity 283 UG/DL 261-497 01/17/2016 3:52pm 2015 2:12am Percent Iron Saturation 14 % 9-55 01/17/2016 3:52pm 01/19/2016 2:12am Ferritin 88.9 NG/ML 11-264 01/17/2016 3:52pm 01/19/2016 2:43am Vitamin B12 Level > 1000 PG/ML H 239-931 01/17/2016 3:52pm 01/19/2016 3: 14am Folate 17.1 NG/ML 2.76-20 01/17/2016 3:52pm 01/19/2016 3:14am NORMAL ADULT RANGE: 2.76->20 ng/mL Erythropoietin 54.3 mIU/mL H 01/17/2016 3:52pm 01/19/2016 3:53pm Reference Range: 2.6 - 18.5 Test Performed by: [facility] [address] [place] [address] Smoke Chaser: Gustavo Young II, M.D., Ph.D. [place] [address] Meal Attendant Hector Salvador MD Haptoglobin 204 mg/dL H 36-195 01/17/2016 3:52pm 01/17/2016 10:32pm Haptoglobin performed at [facility], [address] [place] [address] Meal Attendant Alba Torres DO Homocysteine 4.5 umol/L 4.0-14.0 01/17/2016 3:52pm 01/17/2016 10:04pm Homocysteine performed at [facility], [address] [place] [address] Meal Attendant Alba Torres DO Methylmalonic Acid 0.15 nmol/mL <=0.40 01/17/2016 3:52pm 01/21/2016 10: 11am Test Performed by: [place] [address] Smoke Chaser: Gustavo Young II, M.D., Ph.D. Methylmalonic Acid, [place] [address] Meal Attendant Hector Salvador MD Phosphorus Level 3.4 MG/DL 2.5-4.5 01/19/2016 10:25am 01/19/2016 11: 08am Erythrocyte Sedimentation Rate 48 mm/h H 0-23 02/11/2016 8:30am 2015 4:18pm Sedimentation Rate performed at [facility], [address] [place] [address] Meal Attendant Alba Torres, DO Myelocytes % 1.0 % H 0-0 01/27/2016 8:08am 01/27/2016 9:50am Plasma Cells 1.0 % H 0-0 02/10/2016 1:26pm 02/10/2016 2:06pm Myelocytes # 0.9 T/MM3 01/27/2016 8:08am 01/27/2016 9:50am Plasma Cells 0.2 T/MM3 02/10/2016 1:26pm 02/10/2016 2:06pm Urine Culture Indicated CULT NOT INDICATED 02/10/2016 4:40pm 2015 6:32pm C-Reactive Protein 67.4 MG/L H 0-9 02/12/2016 12:08pm 02/12/2016 12: 26pm White Blood Count 18.6 T/MM3 H 4.5-11.0 02/16/2016 5:02/16/2016 6: 03am Red Blood Count 2.32 M/MM3 L 4.00-5.20 02/16/2016 5:02/16/2016 6: 03am Hemoglobin 7.7 GM/DL L 12-16 02/16/2016 5:02/16/2016 6:03am Hematocrit 24.3 % L 36-46 02/16/2016 5:02/16/2016 6:03am Mean Corpuscular Volume 104.7 UM3 H 80-100 02/16/2016 5:02/16/2016 6:03am Mean Corpuscular Hemoglobin 33.2 UUG 26-34 02/16/2016 5:2015 6:03am Mean Corpuscular Hemoglobin Concent 31.7 GM/DL 31-37 02/16/2016 5:02/16/2016 6:03am RDW Standard Deviation 60.5 FL H 36.9-50.2 02/16/2016 5:02/16/2016 6:03am Platelet Count 163 T/MM3 130-400 02/16/2016 5:02/16/2016 6:03am Mean Platelet Volume 10.0 UM3 9.4-12.4 02/16/2016 5:02/16/2016 6: 03am Neutrophils % (Manual) 33.0 % 33-66 02/16/2016 5:02/16/2016 7: 30am Band Neutrophils % 1.0 % 0-6 02/15/2016 4:02/15/2016 6:43am Lymphocytes % (Manual) 67.0 % H 23-45 02/16/2016 5:02/16/2016 7: 30am Monocytes % (Manual) 1.0 % 0-9.0 02/15/2016 4:02/15/2016 6:43am Band Neutrophils # 0.2 T/MM3 02/15/2016 4:02/15/2016 6:43am Absolute Neutrophils (Manual) 6.1 T/MM3 1.8-7.7 02/16/2016 5:02/15 7:30am Lymphocytes # (Manual) 12.5 T/MM3 H 1-4.8 02/16/2016 5:02/16/2016 7 :30am Monocytes # (Manual) 0.2 T/MM3 0-0.8 02/15/2016 4:02/15/2016 6: 43am Smudge Cells 3+ 02/16/2016 5:02/16/2016 7:30am Red Cell Morphology Comment ABNORMAL 02/16/2016 5:02/16/2016 7 :30am Anisocytosis 1+ 02/16/2016 5:02/16/2016 7:30am Poikilocytosis 1+ 02/15/2016 4:02/15/2016 6:43am Macrocytosis 1+ 02/15/2016 4:02/15/2016 6:43am Polychromasia 1+ 02/16/2016 5:02/16/2016 7:30am Sandy Cells 2+ 02/15/2016 4:02/15/2016 6:43am Ovalocytes 1+ 02/12/2016 5:41pm 02/12/2016 6:05pm Target Cells 1+ 02/12/2016 5:41pm 02/12/2016 6:05pm Basophilic Stippling 1+ 02/16/2016 5:02/16/2016 7:30am Icterus Index < 2 0-7 02/16/2016 5:02/16/2016 6:09am Chemistry Specimen Hemolysis < 15 0-25 02/16/2016 5:02/16/2016 6 :09am 0-25: Specimen Exhibited No Hemolysis. Turbidity < 20 0-20 02/16/2016 5:02/16/2016 6:09am Sodium Level 137 MEQ/L 134-144 02/16/2016 5:02/16/2016 6:09am Potassium Level 3.8 MEQ/L 3.6-5 02/16/2016 5:02/16/2016 6:09am Chloride Level 110 MEQ/L H 98-107 02/16/2016 5:02/16/2016 6:09am Carbon Dioxide Level 21 MEQ/L L 22-30 02/16/2016 5:02/16/2016 6: 09am Anion Gap 6 MEQ/L 5-15 02/16/2016 5:02/16/2016 6:09am Blood Urea Nitrogen 18.0 MG/DL H 7-17 02/16/2016 5:02/16/2016 6: 09am Creatinine 0.7 MG/DL 0.7-1.2 02/16/2016 5:02/16/2016 6:09am BUN/Creatinine Ratio 26 RATIO 6-26 02/16/2016 5:02/16/2016 6:09am Glomerular Filtration Rate Calc 84 02/16/2016 5:02/16/2016 6: 09am Glucose Level 79 MG/DL 65-110 02/16/2016 5:02/16/2016 6:09am Calculated Osmolality 265 MOSM/KG 261-280 02/16/2016 5:02/16/2016 6:09am Calcium Level 7.7 MG/DL L 8.4-10.2 02/16/2016 5:02/16/2016 6:09am Total Bilirubin 0.30 MG/DL 0.20-1.30 02/13/2016 5:02/13/2016 9: 41am Alkaline Phosphatase 32 U/L D L 38-126 02/13/2016 5:02/13/2016 9: 47am Total Protein 4.7 G/DL L 6.3-8.2 02/13/2016 5:02/13/2016 9:41am Albumin 2.1 G/DL L 3.5-5.0 02/13/2016 5:02/13/2016 9:41am Globulin 2.6 G/DL 2.4-3.6 02/13/2016 5:02/13/2016 9:41am Albumin/Globulin Ratio 0.8 RATIO L 1.1-2.2 02/13/2016 5:02/13/2016 9:41am Aspartate Amino Transf (AST/SGOT) 21 U/L 14-36 02/13/2016 5:10am 2015 9:41am Alanine Aminotransferase (ALT/SGPT) 27 U/L 9-52 02/13/2016 5:10am 02/12 9:41am Lactate Dehydrogenase 463 U/L 313-618 02/14/2016 4:42am 02/14/2016 6: 15pm Magnesium Level 1.9 MG/DL 1.6-2.3 02/14/2016 4:42am 02/14/2016 5:29am Uric Acid 2.6 MG/DL 2.5-7.5 02/14/2016 4:42am 02/14/2016 6:28pm Plasma Lactate 1.6 MMOL/L 0.6-2.2 02/12/2016 5:36pm 02/12/2016 5:57pm Procalcitonin 1.89 NG/ML 02/13/2016 5:10am 02/13/2016 9:35am PCT </= 0.5 ng/mL - sepsis not likely; PCT >0.5 and </=2 ng/mL - sepsis possible; PCT >2 ng/mL - sepsis likely; PCT >/=10 ng/mL - systemic inflammatory response - sepsis or septic shock highly indicated. Stool Occult Blood NEGATIVE 02/15/2016 4:20pm 02/15/2016 [...] CLEAR 02/12/2016 7:28pm 02/12/2016 7:33pm Urine Specific Tiline >=1.030 H 1.015-1.025 02/12/2016 7:28pm 2015 7:33pm [...] 7: 33pm Urine Bilirubin NEGATIVE NEGATIVE 02/12/2016 7:2802/12/2016 7: 33pm Urine Blood NEGATIVE NEGATIVE 02/12/2016 7:28pm 02/12/2016 7:33pm Urine WBC 0-1 /HPF 0-5 02/12/2016 7:28pm 02/12/2016 7:42pm Urine RBC 0-1 /HPF 0-3 02/12/2016 7:28pm 02/12/2016 7:42pm Urine Squamous Epithelial Cells 0-5 02/12/2016 7:28pm 02/12/2016 7: 42pm Urine Bacteria 2+ H NEGATIVE 02/12/2016 7:2802/12/2016 7:42pm Urine Calcium Oxalate Crystals MODERATE 02/12/2016 [...] 48 HOURS 2015 4:40pm 02/13/2016 7:29am Final Blood Culture Peripheral/Iv Start NO GROWTH AFTER 4 DAYS 02/12/2016 12: 08pm 02/16/2016 12:11pm Preliminary Group A Streptococcus Culture Throat NO GROUP A STREP ISOLATED 02/12/2016 7 :17pm 02/15/2016 9:06am Final Procedures Procedure Status Date Provider(s) ROUTINE [...] CT ABD & PELV W/CONTRAST Completed 01/12/16 374388"INFUSION, NORMAL SALINE SOLUTION , 250 CC" Completed 01/12/16 355548"LOW OSMOLAR CONTRAST MATERIAL, 300-399 MG/ML IODINE C [...] Location Arrival/Admit Date Discharge/Depart Date Attending Provider Admitted Inpatient [facility] 02/12/16 7:54pm POLO BLACK MD Discharged Recurring [facility] 02/12/16 10:35am 02/12/16 1:00pm CHRISTOPHER CLAYTON Registered [facility] 02/11/16 9:53am CHRISTOPHER CLAYTON Registered [facility] 02/10/16 3:54pm CHRISTOPHER CLAYTON Registered [facility] 01/17/16 3:37pm CHRISTOPHER CLAYTON Registered [facility] 01/12/16 1:04pm CHRISTOPHER CLAYTON [facility] 12/30/15 8:04am CHRISTOPHER CLAYTON Recent Diagnosis Adverse drug reaction Anemia
--- NOTE | 2016-07-10 22:05 | NUR ---
ADMIT DIRECT ADMIT FROM HOME, PT'S IS AT BEDSIDE.
[2016-07-10 22:15] VITALS: Ht 167.6 cm; Wt 63.0 kg
[2016-07-10] MEDS ORDERED: ONDANSETRON 4mg/2ml INJECTION IV PRN (22:15)
[2016-07-10 22:33] VITALS: BP 113/65; PULSE 75; RESP 16; TEMP 97.6; O2SAT 96
[2016-07-10 22:47] LABS: ALBUMIN 3.7 G/DL (3.5-5.0); ALKALINE PHOSPHATASE 93 U/L (38-126); ALT (SGPT) 32 U/L (9-52); ANION GAP 11 MEQ/L (5-15); AST (SGOT) 47 U/L (14-36); BUN/CREATININE RATIO 29 RATIO (6-26); CALCIUM 8.9 MG/DL (8.4-10.2); CHLORIDE 107 MEQ/L (98-107); CO2 - CARBON DIOXIDE 26 MEQ/L (22-30); GLOMERULAR FILTRATION RATE 55; GLUCOSE 141 MG/DL (65-110); MAGNESIUM 2.2 MG/DL (1.6-2.3); POTASSIUM 4.3 MEQ/L (3.6-5); SODIUM 144 MEQ/L (134-144); TOTAL PROTEIN 7.5 G/DL (6.3-8.2)
[2016-07-10 23:06] LABS: PHOSPHORUS 4.8 MG/DL (2.5-4.5)
[2016-07-10] MEDS: SODIUM BICARBONATE 100 MEQ in D5W 1,000 ML IV SCH (23:20)
--- NOTE | 2016-07-10 23:27 | HPPDOC ---
TANNER SANDRA MD 07/10/16 2259: HPI - Adult Date DATE: 07/10/16 TIME: 22:56 General Chief Complaint: S/P Ibutanib therapy for CLL History of Present Illness 66 yo F with PMH of CLL presented for direct admission by Dr. Adams for monitoring and IVF after receiving ibutanib therapy today. 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 patient was monitored today by Dr. Adams and found to have acute elevations in her labs, her uric acid went from 7.8 to 10.3 and her BUN, PHOS and K+ increased. She was given 1 bolus of D5 with 3amps of bicarb in the office before her treatment today. Given her lab abnormalities and previous complications patient was direct admitted for close monitoring and lab work every 4 hours. Past Medical History Past Medical History CLL diagnosed in 2012, begin oral chemotherapy February 2016 for increasing lymphadenopathy hypothyroidism Surgical History Patient's Surgical History: Steve/BSO and appendectomy Cataract surgery Kidney stones For breast lumpectomies, they've all been benign lesions Lumbar laminectomy and fusion L3-L5 (that's when they found her CLL was workup preop) Current Medications Home Meds Active Scripts Hydrocodone/Apap ([place] 5-325 Tablet) 5-325 Tablet, 1-2 TAB PO Q4HR Y for PAIN, #30 Prov:POLO BLACK MD 02/18/16 Reported Medications Acetaminophen (Acetaminophen) 500 Mg Tablet, 1000 MG PO Q8H Y for PAIN 02/12/16 Ibuprofen (Ibuprofen) 200 Mg Tablet, 400 MG PO Q4H Y for PAIN 02/12/16 Lorazepam (Ativan) 0.5 Mg Tablet, 0.5 MG PO Q4H Y for ANXIETY 02/12/16 Tamsulosin HCl (Tamsulosin HCl) 0.4 Mg Cap.er.24h, 0.4 MG PO DAILY Y for PRN ORDERS 02/12/16 Acyclovir (Acyclovir) 400 Mg Tablet, 400 MG PO BID 02/12/16 Levothyroxine Sodium (Levothyroxine Sodium) 150 Mcg Tablet, 150 MCG PO ACB 02/12/16 Allergies: Coded Allergies: ertapenem (Verified Allergy, Severe, 02/13/16) allopurinol (Verified Allergy, Unknown, MIRELES-TASHA SYNDROME, 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) Family History Family History: her dad had a stroke in his 80s from a rheumatoid arthritis brother had prostate cancer and a daughter with Crohn's disease Social History Alcohol Intake: none Marital Status: Advance Directives: Yes DPOA for Healthcare Only (HENNY ) Review of Systems Constitutional: REPORTS: see HPI Eyes General: DENIES: burning, dryness, erythema, exudate, foreign body sensation, itching, other, pain, photophobia, see HPI, subconjunctival bleed, watering ENMT Ears: DENIES: drainage, erythema, foreign body, other, pain, see HPI Nose: NOT FOUND: allergies, change in smell, foreign body, nosebleeds, obstruction, other, pain, see HPI Mouth/Throat: DENIES: bleeding gums, blisters, caries, change in swallowing, change in taste, change in voice, drooling, dry mouth, growths, hoarsness, loose teeth, masses, other, pain, painful swallowing, scratchy throat, see HPI, sore throat, sores, ulcers Cardiovascular DENIES: chest pain, dyspnea on exertion, hx of rheumatic fever, murmur, orthopnea, other, paroxysmal nocturnal dysp, see HPI Rhythm/Rate: DENIES: bradycardia, irregular beat, other, palpitations, see HPI , tachycardia Pulmonary Respiratory: DENIES: cough, dyspnea, exposure to TB, hyperventilation, other, pleuritic chest pain, pneumonia hx, see HPI, sputum, tachypnea GI Upper Abdomen: DENIES: abdominal swelling, dysphagia, food intolerances, heartburn/indigestion, hematemesis, nausea, other, pain, see HPI, vomiting Lower Abdomen: DENIES: blood in stool, risa-colored stools, constipation, diarrhea, melena, other, pain, painful BM, see HPI Musculoskeletal General: DENIES: atrophy of muscles, cramps, edema, joint pain, joint swelling , other, pain, see HPI, spasm, tenderness, weakness Integumentary Skin: DENIES: color change, infections, itching, lesion, mole, other, rash, see HPI, sores, tumor, ulcers Hair: DENIES: alopecia, breaking, change in distribution, dandruff, lesions, other, see HPI Neurological General: DENIES: aphasia, ataxia, blackouts, blindness, change in strength, dysarthria, dysesthesia, fainting, headache, memory disturbances, numbness, other, paralysis/paresis, poor coordination, see HPI, seizures, syncope, tics, tingling, tremor, vertigo, weakness Psychiatric Psychiatric: DENIES: anxiety, depression, emotional instability, hallucinations , irritability, memory impairment, nervousness, other, see HPI, suicidal ideation/attempt Physical Exam General General Nourishment: well nourished, well developed Vital Signs Vital Signs Date Time Temp Pulse Resp B/P Pulse Ox O2 Delivery O2 Flow Rate FiO2 07/10/16 22:33 97.6 75 16 113/65 96 Room Air Height (Feet): 5 Height (Inches): 6.00 Respiratory Brief: FOUND: clear all stevenson, equal bilaterally Cardiovascular (brief) Cardiac Brief: FOUND: regular rate, regular rhythm Abdomen (brief) Abdominal Brief: FOUND: BS normo active x4, soft Neurologic (brief) Neurological Brief: FOUND: cranial 2-12 intact Neurologic RN Documented GCS Eye Opening: Verbal: Motor: Total: Psychiatric (brief) FOUND: alert, normal affect, oriented Laboratory Laboratory Tests Test 07/10/16 22:28 Turbidity < 20 Sodium Level 144MEQ/L Potassium Level 4.3MEQ/L Chloride Level 107MEQ/L Carbon Dioxide Level 26MEQ/L Anion Gap 11MEQ/L Blood Urea Nitrogen 29.0MG/DL Creatinine 1.0MG/DL Glomerular Filtration Rate Calc 55 BUN/Creatinine Ratio 29RATIO Glucose Level 141MG/DL Calculated Osmolality 285MOSM/KG Calcium Level 8.9MG/DL Magnesium Level 2.2MG/DL Total Bilirubin 0.40MG/DL Icterus Index < 2 Aspartate Amino Transf (AST/SGOT) 47U/L Alanine Aminotransferase (ALT/SGPT) 32U/L Alkaline Phosphatase 93U/L Total Protein 7.5G/DL Albumin 3.7G/DL Globulin 3.8G/DL Albumin/Globulin Ratio 1.0RATIO Chemistry Specimen Hemolysis < 15 Assessment & Plan Problems: (1) At high risk of tumor lysis syndrome Assessment & Plan: patient S/P ibrutinib today. Patients uric acid and electrolytes are trending up. Will give IVF D5W with bicarb and monitor labs Q4H overnight. Give supportive care. (2) Chronic lymphocytic leukemia Onset Date: ~ 2012 Status: Chronic Assessment & Plan: Follows with Dr. Adams. S/P chemotherapy today. Continue to monitor and give supportive care. DVT Prophylaxis: SCD'S Code Status Full Code Hospital Course Summary Disclaimer The hospital course summary below is not to be considered part of the above Progress Note. BEKAH RICHARDSON MD 07/11/16 1208: Past Medical History Current Medications Home Meds Active Scripts Hydrocodone/Apap ([place] 5-325 Tablet) 5-325 Tablet, 1-2 TAB PO Q4HR Y for PAIN, #30 Prov:POLO BLACK MD 02/18/16 Reported Medications Acetaminophen (Acetaminophen) 500 Mg Tablet, 1000 MG PO Q8H Y for PAIN 02/12/16 Ibuprofen (Ibuprofen) 200 Mg Tablet, 400 MG PO Q4H Y for PAIN 02/12/16 Lorazepam (Ativan) 0.5 Mg Tablet, 0.5 MG PO Q4H Y for ANXIETY 02/12/16 Tamsulosin HCl (Tamsulosin HCl) 0.4 Mg Cap.er.24h, 0.4 MG PO DAILY Y for PRN ORDERS 02/12/16 Acyclovir (Acyclovir) 400 Mg Tablet, 400 MG PO BID 02/12/16 Levothyroxine Sodium (Levothyroxine Sodium) 150 Mcg Tablet, 150 MCG PO ACB 02/12/16 Allergies: Coded Allergies: ertapenem (Verified Allergy, Severe, 02/13/16) allopurinol (Verified Allergy, Unknown, MIRELES-TASHA SYNDROME, 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 Patients uric acid and electrolytes are trending up. Will give IVF D5W with bicarb and monitor labs Q4H overnight. Give supportive care. (2) Chronic lymphocytic leukemia Onset Date: ~ 2012 Status: Chronic Assessment & Plan: Follows with Dr. Adams. S/P chemotherapy today. Continue to monitor and give supportive care. (3) Hypothyroid Status: Chronic Qualifiers: Hypothyroidism type: acquired Qualified Codes: E03.9 - Hypothyroidism, unspecified (4) Generalized pruritus Status: Acute Plan/Intensity of Service Have independently interviewed and examined pt. Chart reviewed. Above note reviewed and concur. CC: Reaction to chemo - "I'm shutting down." HPI: 66 y/o WF made direct [place] [facility] [place] to reaction from chemo. Reviewed treatment for CLL. Premedication with Bicarb IVF. Post chemo diffuse generalized pruritus. Decreased urine output. No nausea or ab pain. Breathing well-not with increased SOA or cough/congestion. No chest pressure, palpitations or chest heaviness. Lab monitored. WBC with increase, Uric acid increasing. Dr Varela concerned about tumor lysis and pt made direct admit for further treatment. PMHx, SHx, FHx, meds and allergies reviewed and concur. ROS: as in HPI. GEN: no f/c. Typical status of health prior to chemo. HEENT: vision/hearing stable. No sinus pressure/pain/drainage. No mouth pain. Pulm: Denies SOA, cough, pain with breathing, congestion, sputum. CV: as above. GI: no n/v. Bowels stable. No ab pain. : decreased urine output-no pain or burning. Neuro: denies unilateral weakness/numbness. Remainder of 10 point ROS negative. Exam; GEN: [id number] A&O communicates well. HEENT: NC/AT PERRLA EOMI MMM Neck: midline, supple. CV: regular Lungs: clear bilaterally. No crackles or wheeze. No distress on RA. Ab; Soft nt/nd BD decreased EXT: +2 bilateral lower ext edema Neuro: CN II-XI intact. No focal deficits Psych: Awake alert appropriate. Thoughts linear. Communicates well. Skin: warm and dry. No rashes Lab: reviewed Assessment: as above Plan: Continue D5W with 2 amps sodium bicarb. Monitor lab. SCD for DVT prevention. Consult with Dr Varela for onc opinion and treatments. Hospital Course Summary Hospital Course Summary 07/10 patient S/P ibrutinib today. Patients uric acid and electrolytes are trending up. Will give IVF D5W with 2 amps bicarb and monitor labs Q4H overnight. Give supportive care. TANNER SANDRA MD Jul 10, 2016 22:59 BEKAH RICHARDSON MD Jul 11, 2016 12:08
[2016-07-11] MEDS ORDERED: HYDROCODONE/APAP 5 mg/325 mg TABLET PO PRN
[2016-07-11] MEDS: LORAZEPAM 0.5 MG TABLET PO PRN ×2 (00:02→17:38)
[2016-07-11 02:16] LABS: ALBUMIN 3.3 G/DL (3.5-5.0); ALKALINE PHOSPHATASE 96 U/L (38-126); ALT (SGPT) 36 U/L (9-52); ANION GAP 10 MEQ/L (5-15); AST (SGOT) 33 U/L (14-36); BUN/CREATININE RATIO 37 RATIO (6-26); CALCIUM 8.4 MG/DL (8.4-10.2); CHLORIDE 103 MEQ/L (98-107); CO2 - CARBON DIOXIDE 28 MEQ/L (22-30); CREATININE 0.9 MG/DL (0.7-1.2); GLOMERULAR FILTRATION RATE 62; GLUCOSE 159 MG/DL (65-110); MAGNESIUM 2.1 MG/DL (1.6-2.3); PHOSPHORUS 3.8 MG/DL (2.5-4.5); POTASSIUM 3.8 MEQ/L (3.6-5); SODIUM 141 MEQ/L (134-144); TOTAL PROTEIN 6.6 G/DL (6.3-8.2); URIC ACID 8.9 MG/DL (2.5-7.5)
[2016-07-11 06:33] LABS: ALKALINE PHOSPHATASE 84 U/L (38-126); ALT (SGPT) 29 U/L (9-52); AST (SGOT) 27 U/L (14-36); BUN/CREATININE RATIO 36 RATIO (6-26); CALCIUM 8.2 MG/DL (8.4-10.2); CO2 - CARBON DIOXIDE 30 MEQ/L (22-30); CREATININE 0.8 MG/DL (0.7-1.2); GLOMERULAR FILTRATION RATE 72; MAGNESIUM 2.1 MG/DL (1.6-2.3)
[2016-07-11] MEDS: SODIUM BICARBONATE 100 MEQ in D5W 1,000 ML IV SCH ×2 (07:02→15:07)
[2016-07-11 07:03] LABS: ALBUMIN/GLOBULIN RATIO 0.9 RATIO (1.1-2.2); ANION GAP 8 MEQ/L (5-15); CHLORIDE 104 MEQ/L (98-107); GLUCOSE 113 MG/DL (65-110); POTASSIUM 3.8 MEQ/L (3.6-5); SODIUM 142 MEQ/L (134-144); TOTAL PROTEIN 6.3 G/DL (6.3-8.2)
[2016-07-11 07:31] VITALS: PULSE 74; RESP 16; O2SAT 98
[2016-07-11 07:56] VITALS: BP 106/59; PULSE 74; RESP 14; TEMP 97.9; O2SAT 98
[2016-07-11 08:04] VITALS: PULSE 74; RESP 14
[2016-07-11 08:18] LABS: URIC ACID 8.3 MG/DL (2.5-7.5)
--- NOTE | 2016-07-11 10:13 | NUR ---
CM CM VISITED PT AND DAUGHTER. CM EXPLAINED ROLE AND PROVIDED CONTACT INFORMATION. PT PLANS TO RETURN HOME POST HOSPITAL STAY. PT DENIES NEEDS. PT IS AWARE TO CONTACT CM IF NEEDS ARISE.
[2016-07-11 10:38] LABS: ALBUMIN 3.6 G/DL (3.5-5.0); ALKALINE PHOSPHATASE 92 U/L (38-126); ALT (SGPT) 27 U/L (9-52); ANION GAP 12 MEQ/L (5-15); AST (SGOT) 30 U/L (14-36); BUN/CREATININE RATIO 29 RATIO (6-26); CALCIUM 8.6 MG/DL (8.4-10.2); CHLORIDE 100 MEQ/L (98-107); CO2 - CARBON DIOXIDE 33 MEQ/L (22-30); CREATININE 0.9 MG/DL (0.7-1.2); GLOMERULAR FILTRATION RATE 62; GLUCOSE 102 MG/DL (65-110); MAGNESIUM 2.2 MG/DL (1.6-2.3); PHOSPHORUS 3.8 MG/DL (2.5-4.5); POTASSIUM 3.5 MEQ/L (3.6-5); SODIUM 145 MEQ/L (134-144); TOTAL PROTEIN 7.1 G/DL (6.3-8.2); URIC ACID 7.9 MG/DL (2.5-7.5)
--- NOTE | 2016-07-11 12:10 | CONSPD ---
HERMANN PRIETO HOME MANAGEMENT SUPERVISOR 07/11/16 1210: Consultation Info Date DATE: 07/11/16 TIME: 12:10 Date of Consultation: Jul 11, 2016 Attending Physician: Gorge Butts M.D. Reason for Consultation: CLL HPI - Adult Date DATE: 07/11/16 TIME: 12:10 General Chief Complaint: S/P Ibutanib therapy for CLL History of Present Illness Well-known 66-year-old female with chronic lymphocytic leukemia with recent evidence of progressive disease was treated with Ibrutinib 1 tablet last evening. 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 Had labs drawn last evening , which showed increased uric acid, increased BUN, phosphorus, and potassium. Recommended direct admission by Dr. Varela for IV fluids, alkalinization of urine, and close monitoring of renal function. History of present illness shows CLL diagnosed in December 2012, ROMAN stage pre-0 as absolute lymphocyte count is not 15,000. CT scan showed borderline lymph nodes which could be ROMAN 1. This was diagnosed by flow cytometry with aggressive cytogenetics deletion 11q, deletion 13q, and trisomy 12. She had second opinion with Dr. Abby Weber in [place]. She was started on Ibrutinib, 3 tabs in January 2016. In February 2016 patient hospitalized at [facility] with fever, skin rash, and severe desquamation of skin. This was likely reaction to either Ibrutinib, allopurinol, or Invanz. Recovered nicely and followed closely. WBCs continue to increase, also increasing lymphadenopathy and recent CT scan showed progressive disease. A repeat flow cytometry reveal same immunophenotypic profile. Peripheral smear did not show increased number of lymphocytes. Therefore, not transformation of her underlying disease. Cytogenetics pending. At time of intake this morning, patient sitting on bedside, daughter and friends at bedside. She is alert and oriented. Has mild intermittent itching. Denies fever, chills, night sweats. She is eating and drinking normally. No nausea,vomiting, no abdominal pain. Feels voiding may be sliightly decreased. Normal bowel movement yesterday. Denies headache, vision changes, no dizziness. Continues with axillary lymphadenopathy, unchanged, and has one soft mass left lumbar spine. Past Medical History Past Medical History CLL diagnosed in 2012, begin oral chemotherapy February 2016 for increasing lymphadenopathy hypothyroidism Surgical History Patient's Surgical History: Steve/BSO and appendectomy Cataract surgery Kidney stones For breast lumpectomies, they've all been benign lesions Lumbar laminectomy and fusion L3-L5 (that's when they found her CLL was workup preop) Current Medications Home Meds Active Scripts Hydrocodone/Apap ([place] 5-325 Tablet) 5-325 Tablet, 1-2 TAB PO Q4HR Y for PAIN, #30 Prov:POLO BLACK MD 02/18/16 Reported Medications Acetaminophen (Acetaminophen) 500 Mg Tablet, 1000 MG PO Q8H Y for PAIN 02/12/16 Ibuprofen (Ibuprofen) 200 Mg Tablet, 400 MG PO Q4H Y for PAIN 02/12/16 Lorazepam (Ativan) 0.5 Mg Tablet, 0.5 MG PO Q4H Y for ANXIETY 02/12/16 Tamsulosin HCl (Tamsulosin HCl) 0.4 Mg Cap.er.24h, 0.4 MG PO DAILY Y for PRN ORDERS 02/12/16 Acyclovir (Acyclovir) 400 Mg Tablet, 400 MG PO BID 02/12/16 Levothyroxine Sodium (Levothyroxine Sodium) 150 Mcg Tablet, 150 MCG PO ACB 02/12/16 Allergies: Coded Allergies: ertapenem (Verified Allergy, Severe, 02/13/16) allopurinol (Verified Allergy, Unknown, BARROS-TASHA SYNDROME, 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) Family History Family History: her dad had a stroke in his 80s from a rheumatoid arthritis brother had prostate cancer and a daughter with Crohn's disease paternal GF lung cancer Social History Smoking Status: Never smoker Does patient use chewing tobac: No Second Hand Exposure: No Alcohol Intake: none Marital Status: Advance Directives: Yes DPOA for Healthcare Only (HENNY ) Review of Systems Constitutional: DENIES: chills, fatigue, fever, weight gain, weight loss ENMT Balance: DENIES: vertigo Mouth/Throat: DENIES: dry mouth, sore throat Cardiovascular DENIES: chest pain, dyspnea on exertion Pulmonary Respiratory: DENIES: cough, dyspnea, sputum GI Upper Abdomen: DENIES: food intolerances, heartburn/indigestion, nausea, pain General: polyuria (mild today), DENIES: dysuria, frequency Musculoskeletal General: DENIES: cramps, joint pain, pain Integumentary Skin: itching, other Breasts: DENIES: lumps, tenderness Neurological General: DENIES: headache, weakness Psychiatric Psychiatric: anxiety (mild related to disease and treament) Physical Exam General General Nourishment: well nourished, well developed General Body Habitus: well groomed Vital Signs Vital Signs Date Time Temp Pulse Resp B/P Pulse Ox O2 Delivery O2 Flow Rate FiO2 07/11/16 08:04 74 14 07/11/16 07:56 97.9 106/59 98 Room Air Height (Feet): 5 Height (Inches): 6.00 Eyes Brief: FOUND: EOMI, PERRL, NOT FOUND: scleral icterus ENMT Brief: FOUND: mucosa moist, normal dentition, NOT FOUND: lesions Neck Brief: NOT FOUND: adenopathy, tenderness Respiratory Brief: FOUND: clear all stevenson, equal bilaterally, NOT FOUND: wheezes Cardiovascular (brief) Cardiac Brief: FOUND: regular rate, regular rhythm, NOT FOUND: pedal edema Abdomen (brief) Abdominal Brief: FOUND: BS normo active x4, soft, NOT FOUND: tender Lymphatic (brief) Lymphatic Brief: FOUND: adenopathy (LAD lien. axilla, L > R, small mass, < 2cm left lumbar area) Musculoskeletal (brief) Musculoskeletal Brief: NOT FOUND: loss of motion, tenderness Integumentary (brief) Integumentary Brief: FOUND: dry, other, warm, NOT FOUND: rash Neurologic (brief) Neurological Brief: FOUND: cranial 2-12 intact, motor Neurologic RN Documented GCS Eye Opening: Verbal: Motor: Total: Psychiatric (brief) FOUND: alert, attentive, normal affect, oriented Laboratory Laboratory Tests Test 07/10/16 22:28 07/11/16 02:00 07/11/16 06:13 07/11/16 10:13 Turbidity < 20 < 20 < 20 < 20 Sodium Level 144MEQ/L 141MEQ/L 142MEQ/L 145MEQ/L Potassium Level 4.3MEQ/L 3.8MEQ/L 3.8MEQ/L 3.5MEQ/L Chloride Level 107MEQ/L 103MEQ/L 104MEQ/L 100MEQ/L Carbon Dioxide Level 26MEQ/L 28MEQ/L 30MEQ/L 33MEQ/L Anion Gap 11MEQ/L 10MEQ/L 8MEQ/L 12MEQ/L Blood Urea Nitrogen 29.0MG/DL 33.0MG/DL 29.0MG/DL 26.0MG/DL Creatinine 1.0MG/DL 0.9MG/DL 0.8MG/DL 0.9MG/DL Glomerular Filtration Rate Calc 55 62 72 62 BUN/Creatinine Ratio 29RATIO 37RATIO 36RATIO 29RATIO Glucose Level 141MG/DL 159MG/DL 113MG/DL 102MG/DL Calculated Osmolality 285MOSM/KG 281MOSM/KG 280MOSM/KG 284MOSM/KG Uric Acid 10.5MG/DL 8.9MG/DL 8.3MG/DL 7.9MG/DL Calcium Level 8.9MG/DL 8.4MG/DL 8.2MG/DL 8.6MG/DL Phosphorus Level 4.8MG/DL 3.8MG/DL 4.0MG/DL 3.8MG/DL Magnesium Level 2.2MG/DL 2.1MG/DL 2.1MG/DL 2.2MG/DL Total Bilirubin 0.40MG/DL 0.40MG/DL 0.60MG/DL 0.80MG/DL Icterus Index < 2 < 2 < 2 < 2 Aspartate Amino Transf (AST/SGOT) 47U/L 33U/L 27U/L 30U/L Alanine Aminotransferase (ALT/SGPT) 32U/L 36U/L 29U/L 27U/L Alkaline Phosphatase 93U/L 96U/L 84U/L 92U/L Total Protein 7.5G/DL 6.6G/DL 6.3G/DL 7.1G/DL Albumin 3.7G/DL 3.3G/DL 3.0G/DL 3.6G/DL Globulin 3.8G/DL 3.3G/DL 3.3G/DL 3.5G/DL Albumin/Globulin Ratio 1.0RATIO 1.0RATIO 0.9RATIO 1.0RATIO Chemistry Specimen Hemolysis < 15 < 15 < 15 < 15 Lactate Dehydrogenase 664U/L 738U/L Impression/Recommendation Impression CLL with progressive disease. Given Ibrutinib 1 tablet yesterday; now with evidence possible tumor lysis syndrome. Recommendation Continue IV fluids, alkalinization of urine, close monitoring of counts, renal function, and supportive care. Patient has no questions at this time. CHRISTOPHER VARELA Sav 07/12/16 0805: Past Medical History Current Medications Home Meds Active Scripts Hydrocodone/Apap ([place] 5-325 Tablet) 5-325 Tablet, 1-2 TAB PO Q4HR Y for PAIN, #30 Prov:POLO BLACK MD 02/18/16 Reported Medications Acetaminophen (Acetaminophen) 500 Mg Tablet, 1000 MG PO Q8H Y for PAIN 02/12/16 Ibuprofen (Ibuprofen) 200 Mg Tablet, 400 MG PO Q4H Y for PAIN 02/12/16 Lorazepam (Ativan) 0.5 Mg Tablet, 0.5 MG PO Q4H Y for ANXIETY 02/12/16 Tamsulosin HCl (Tamsulosin HCl) 0.4 Mg Cap.er.24h, 0.4 MG PO DAILY Y for PRN ORDERS 02/12/16 Acyclovir (Acyclovir) 400 Mg Tablet, 400 MG PO BID 02/12/16 Levothyroxine Sodium (Levothyroxine Sodium) 150 Mcg Tablet, 150 MCG PO ACB 02/12/16 Allergies: Coded Allergies: ertapenem (Verified Allergy, Severe, 02/13/16) allopurinol (Verified Allergy, Unknown, BARROS-TASHA SYNDROME, 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 I participated in the development of the plan of care of this patient and agree with documentation of Carolina Prieto. Patient examined, Chart reviewed. CLL with progressive disease. Had excellent response to Ibrutinib but had skin rash and reaction. Unsure of cause but could have been Ibrutinib, Allopurinol or Invanz.She has developed progressive disease. We elected to rechallenge with Ibrutinib at 1/3 of normal dose and started therapy on 07/10/16 with only one Ibrutinib tablet. Uric acid prior to starting was 7.8. She was given 1L D5w with 3 amps NaHCO3. 12 hours later Uric acid had increased to 10.3. She had increase in Phos, LDH and slight decline in calcium. She does not meet criteria for true tumor lysis as she only has [place] definition of laboratory tumor lysis syndrome Element Value Change from baseline Uric acid 476 micromol/L (8 mg/dL) 25% increase Potassium 6.0 mmol/L (or 6 mEq/L) 25% increase Phosphorus 2.1 mmol/L (6.5 mg/dL) for children or 1.45 mmol/L (4.5 mg/dL) for adults 25% increase Calcium 1.75 mmol/L (7 mg/dL) 25% decrease NOTE: Two or more laboratory changes within three days before or seven days after cytotoxic therapy. She has had a 25 % increase in Uric acid but not in Potasium or decline in calcium. Phos did go to 4.8 but started at 3.8 with a 25 % increase representing 4.75. She has had dramatic improvement in uric acid and renal function with IV fluids. Rasburicase is available if uric acid increases. G6PD testing drawn this morning. This metabolic syndrome is improving and will continue fluids. 2. Skin is slightly erythematous today. This is worrisome for rash from Ibrutinib. Will follow closely and hold ibrutinib until this is manifest of reaction. 3. Renal insufficiency with GFR of 55 prior to starting drug. 72 this am Recommendation Alkilinazation of urine, Fluids. Follow uric acid and renal function. Decrease bicarbonate if CO2 greater than 35. Follow skin Await G6PD testing Rasburicase is available if uric acid increases. Up to date: Management of established TLS Patients who present with or develop TLS during therapy should receive intensive nursing care with continuous cardiac monitoring and measurement of electrolytes, creatinine, and uric acid every four to six hours. Effective management involves the combination of treating specific electrolyte abnormalities (table 4) and/or acute kidney injury, the use of rasburicase (if it was not given initially), attempting to wash out the obstructing uric acid crystals with a loop diuretic and intravenous fluids, and the appropriate use of renal replacement therapy. (See 'Treatment of established TLS' above.) Indications for renal replacement therapy include (see 'Indications for renal replacement therapy' above): Severe oliguria or anuria Persistent hyperkalemia Hyperphosphatemia-induced symptomatic hypocalcemia A calcium-phosphate product 70 mg2/dL2 HERMANN PRIETO APRN Jul 11, 2016 12:10 CHRISTOPHER VARELA Jul 12, 2016 08:05
[2016-07-11 12:20] LABS: BLOOD, URINE NEGATIVE (NEGATIVE); COLOR,URINE YELLOW (YELLOW); LEUKOCYTE ESTERASE ,URINE NEGATIVE (NEGATIVE); NITRITE,URINE NEGATIVE (NEGATIVE); UROBILINOGEN,URINE 0.2 EU/DL (NORMAL)
[2016-07-11] MEDS ORDERED: POTASSIUM CHLORIDE 20 MEQ TABLET PO ONE ×2 (12:30→17:30)
[2016-07-11] MEDS: DiphenhydrAMINE 25 MG CAPSULE PO PRN (13:21)
[2016-07-11 14:28] LABS: HCT - HEMATOCRIT 31.7 % (36-46); HGB - HEMOGLOBIN 10.2 GM/DL (12-16); MEAN CORPUSCULAR HGB 33.2 UUG (26-34); MEAN CORPUSCULAR HGB CONC(MCHC 32.2 GM/DL (31-37); MEAN CORPUSCULAR VOLUME 103.3 UM3 (80-100); MEAN PLATELET VOLUME 8.8 UM3 (9.4-12.4); RED BLOOD COUNT 3.07 M/MM3 (4.00-5.20)
[2016-07-11 14:29] LABS: WBC - WHITE BLOOD COUNT 133.4 T/MM3 (4.5-11.0)
[2016-07-11 14:35] LABS: ALBUMIN 3.2 G/DL (3.5-5.0); ALKALINE PHOSPHATASE 89 U/L (38-126); ALT (SGPT) 30 U/L (9-52); ANION GAP 12 MEQ/L (5-15); AST (SGOT) 26 U/L (14-36); BUN/CREATININE RATIO 22 RATIO (6-26); CALCIUM 8.3 MG/DL (8.4-10.2); CHLORIDE 101 MEQ/L (98-107); CO2 - CARBON DIOXIDE 32 MEQ/L (22-30); CREATININE 1.1 MG/DL (0.7-1.2); GLOMERULAR FILTRATION RATE 50; GLUCOSE 116 MG/DL (65-110); MAGNESIUM 2.1 MG/DL (1.6-2.3); PHOSPHORUS 3.6 MG/DL (2.5-4.5); POTASSIUM 3.2 MEQ/L (3.6-5); SODIUM 145 MEQ/L (134-144); TOTAL PROTEIN 6.4 G/DL (6.3-8.2); URIC ACID 8.2 MG/DL (2.5-7.5)
[2016-07-11 14:45] LABS: LYMPHOCYTES # (MANUAL) 130.7 T/MM3 (1-4.8); NEUTROPHILS #(MANUAL)-ABSOLUTE 2.7 T/MM3 (1.8-7.7); SMUDGE CELLS 2+; TOTAL CELLS COUNTED 100 %
[2016-07-11 14:46] LABS: ANISOCYTOSIS 2+
[2016-07-11 16:00] VITALS: BP 113/60; PULSE 72; RESP 14; TEMP 97.6; O2SAT 98
--- NOTE | 2016-07-11 17:30 | NUR ---
SHIFT PT HAS BEEN PLEASANT AND COOPERATIVE ALL SHIFT. PT IS A&OX3, UP WITH NO ASSIST, LOW FALL. PT DENIES PAIN, N/V AND SOA. PT IS ON ROOM AIR. PT DID DEVELOP SOME ITCHING AND REDNESS THIS SHIFT, PRN BENADRYL GIVEN. THIS DID SEEM TO HELP. PT HAS AMBULATED IN [place], OUTSIDE IN [place], AND WITH FAMILY. NO OTHER CHANGES SINCE PREVIOUS SHIFT.
[2016-07-11 18:51] LABS: HCT - HEMATOCRIT 31.9 % (36-46); HGB - HEMOGLOBIN 9.9 GM/DL (12-16); MEAN CORPUSCULAR HGB 32.2 UUG (26-34); MEAN CORPUSCULAR VOLUME 103.9 UM3 (80-100); MEAN PLATELET VOLUME 8.9 UM3 (9.4-12.4); RED BLOOD COUNT 3.07 M/MM3 (4.00-5.20)
[2016-07-11 18:53] LABS: WBC - WHITE BLOOD COUNT 136.2 T/MM3 (4.5-11.0)
[2016-07-11 18:56] LABS: ANION GAP 10 MEQ/L (5-15); BUN/CREATININE RATIO 22 RATIO (6-26); CALCIUM 8.4 MG/DL (8.4-10.2); CHLORIDE 103 MEQ/L (98-107); CO2 - CARBON DIOXIDE 33 MEQ/L (22-30); CREATININE 1.2 MG/DL (0.7-1.2); GLOMERULAR FILTRATION RATE 45; GLUCOSE 90 MG/DL (65-110); LDH 596 U/L (313-618); POTASSIUM 3.6 MEQ/L (3.6-5); SODIUM 146 MEQ/L (134-144); URIC ACID 7.7 MG/DL (2.5-7.5)
[2016-07-11 19:21] LABS: LYMPHOCYTES # (MANUAL) 133.5 T/MM3 (1-4.8); NEUTROPHILS #(MANUAL)-ABSOLUTE 2.7 T/MM3 (1.8-7.7); TOTAL CELLS COUNTED 100 %
[2016-07-11 19:22] LABS: ANISOCYTOSIS 2+
[2016-07-11] MEDS: ACYCLOVIR 200 MG CAPSULE PO SCH (20:33)
[2016-07-11] MEDS: D5W IV SCH (20:35)
[2016-07-11] MEDS: SODIUM BICARB IV SCH (20:35)
[2016-07-11 20:40] VITALS: RESP 14
[2016-07-12 00:07] VITALS: BP 110/60; PULSE 75; RESP 16; TEMP 97.1; O2SAT 96
[2016-07-12] MEDS: DiphenhydrAMINE 25 MG CAPSULE PO PRN ×4 (00:10→22:10)
[2016-07-12] MEDS: D5W IV SCH ×4 (03:57→18:19)
[2016-07-12] MEDS: SODIUM BICARB IV SCH ×4 (03:57→18:19)
--- NOTE | 2016-07-12 04:03 | NUR ---
Status Pt A/Ox3. Very pleasant and cooperative with cares. Had some itching in evening. PRN Benadryl given with excellent results. IVF running. Pt states she feels great. Able to sleep some during shift. Up ad kory in room and halls and courtyard. Will continue to monitor.
[2016-07-12 05:10] LABS: HCT - HEMATOCRIT 31.8 % (36-46); HGB - HEMOGLOBIN 9.7 GM/DL (12-16); MEAN CORPUSCULAR HGB 31.8 UUG (26-34); MEAN CORPUSCULAR HGB CONC(MCHC 30.5 GM/DL (31-37); MEAN CORPUSCULAR VOLUME 104.3 UM3 (80-100); MEAN PLATELET VOLUME 9.2 UM3 (9.4-12.4); RED BLOOD COUNT 3.05 M/MM3 (4.00-5.20)
[2016-07-12 05:13] LABS: WBC - WHITE BLOOD COUNT 134.2 T/MM3 (4.5-11.0)
[2016-07-12 05:23] LABS: POTASSIUM 3.9 MEQ/L (3.6-5)
[2016-07-12 05:24] LABS: ANION GAP 8 MEQ/L (5-15); BUN/CREATININE RATIO 26 RATIO (6-26); CALCIUM 8.4 MG/DL (8.4-10.2); CHLORIDE 106 MEQ/L (98-107); CO2 - CARBON DIOXIDE 31 MEQ/L (22-30); CREATININE 0.9 MG/DL (0.7-1.2); GLOMERULAR FILTRATION RATE 62; GLUCOSE 98 MG/DL (65-110); LDH 601 U/L (313-618); MAGNESIUM 2.2 MG/DL (1.6-2.3); SODIUM 145 MEQ/L (134-144); URIC ACID 7.1 MG/DL (2.5-7.5)
[2016-07-12] MEDS: LEVOTHYROXINE 150 MCG TABLET PO SCH (05:41)
[2016-07-12 05:57] LABS: ANISOCYTOSIS 2+; LYMPHOCYTES # (MANUAL) 128.8 T/MM3 (1-4.8); NEUTROPHILS #(MANUAL)-ABSOLUTE 5.4 T/MM3 (1.8-7.7); TOTAL CELLS COUNTED 100 %
[2016-07-12 08:00] VITALS: BP 135/87; PULSE 73; PULSE 75; RESP 16; TEMP 97.1; O2SAT 95
[2016-07-12 08:42] VITALS: PULSE 73; RESP 16
[2016-07-12] MEDS ORDERED: CITA10TA13 PO (08:55)
[2016-07-12] MEDS: ACYCLOVIR 200 MG CAPSULE PO SCH ×2 (08:55→22:08)
--- NOTE | 2016-07-12 09:31 | NUR ---
Rash Pt has red Rash moving up the legs and arms. Occasionally up to face. PRN Benadryl given.
[2016-07-12] MEDS: LORAZEPAM 0.5 MG TABLET PO PRN ×2 (10:43→22:08)
[2016-07-12] MEDS ORDERED: DiphenhydrAMINE 50 MG/ML INJECTION IV ONE (12:00)
--- NOTE | 2016-07-12 14:16 | PNPDOC ---
Subjective Date DATE: 07/12/16 TIME: 14:01 Subjective F/U: CLL with treatment - at risk for tumor lysis syndrome Doing well this afternoon. Morning was rough-developed diffuse rash with severe itching just after she got in shower. Additional Benadryl give and rash/itching gradually resolved. Overall feeling well. Breathing normal-not feeling increased SOA, cough or congestion. Urinating well. Not having swelling to legs or hands. No nausea. No chest pain. Ambulating without problems. Objective Vital Signs Vital signs Vital Signs Date Time Temp Pulse Resp B/P Pulse Ox O2 Delivery O2 Flow Rate FiO2 07/12/16 08:42 73 16 07/12/16 08:00 97.1 135/87 95 Room Air Height (Feet): 5 Height (Inches): 6.00 Weight (Kilograms): 62.000 General General Appearance: Alert, Orientated x 3, Well Nourished, Well Developed, Cooperative, Looks Stated Age Eyes (Brief) Eyes: FOUND: EOMI, PERRL, NOT FOUND: scleral icterus ENMT (Brief) ENMT: FOUND: hearing intact, mucosa moist Neck (Brief) Neck: FOUND: midline, NOT FOUND: nuchal rigidity, spasm Respiratory (Brief) Respiratory: FOUND: clear all stevenson, equal bilaterally, NOT FOUND: rales, wheezes Cardiovascular (Brief) Cardiac: FOUND: pedal edema (Trace ), regular rate, regular rhythm Abdomen (Brief) Abdominal: FOUND: BS normo active x4, soft, NOT FOUND: distended, tender Extremities (Brief) Extremity : Side: Bilateral Extremity: leg Extremity Finding: NOT FOUND: edema Musculoskeletal (Brief) Musculoskeletal: FOUND: extremities move equally, NOT FOUND: deformity, loss of motion, spasm, tenderness Integumentary (Brief) Integumentary: FOUND: dry, warm Neurologic (Brief) Neurological: FOUND: cranial 2-12 intact, motor (Intact ) Psychiatric (Brief) Psychiatric: FOUND: alert, attentive, normal affect, oriented Laboratory Laboratory Laboratory Tests 07/10/16 20:15 07/10/16 22:28 07/11/16 02:00 07/11/16 06:13 07/11/16 10:13 07/11/16 14:16 07/11/16 18:26 07/12/16 04:01 Laboratory Tests 07/11/16 14:16 07/11/16 18:26 07/12/16 04:01 Assessment & Plan Problems: (1) At high risk of tumor lysis syndrome (2) Chronic lymphocytic leukemia Onset Date: ~ 2012 Status: Chronic (3) Hypothyroid Status: Chronic Qualifiers: Hypothyroidism type: acquired Qualified Codes: E03.9 - Hypothyroidism, unspecified (4) Generalized pruritus Status: Acute (5) Hyperphosphatemia Status: Acute Assessment & Plan: POA (6) Elevated blood uric acid level Status: Acute Assessment & Plan: POA (7) Elevated LDH Status: Acute Assessment & Plan: POA (8) Hypokalemia Status: Resolved Assessment & Plan: Not POA Plan/Intensity of Service Continue IVF at 150 cc/hr Recheck BMP, uric acid and LDH this afternoon. Continue Benadryl as needed for itch and rash. Encourage ambulation. Dr Varela to determine about chemo options. DVT Prophylaxis: SCD'S, other (Ambulation) Code Status Full Code Hospital Course Summary Disclaimer The hospital course summary below is not to be considered part of the above Progress Note. Hospital Course Summary 07/10 patient S/P ibrutinib today. Patients uric acid and electrolytes are trending up. Will give IVF D5W with 2 amps bicarb and monitor labs Q4H overnight. Give supportive care. 07/11 Feeling better overall, but still some itching. Lab improving: LDH and uric acid trending down. Phos and magnesium normal. Potassium decreased - replace orally. Sodium increasing and creatinine with slight increase - will change IVF to D5W with 1 amp bicarb as pt needs more free water in IV. 07/12 Doing well this afternoon. Morning was rough-developed diffuse rash with severe itching just after she got in shower. Additional Benadryl give and rash/itching gradually resolved. Overall feeling well. Breathing normal-not feeling increased SOA, cough or congestion. Urinating well. Not having swelling to legs or hands. No nausea. No chest pain. Ambulating without problems. Creatinine to baseline at 0.9, Potassium normalized. Uric acid, LDH, phos, and magnesium normal. CO2 elevated at 31 due to IVF infusion. Continue IVF at 150 cc/hr Recheck BMP, uric acid and LDH this afternoon. Continue Benadryl as needed for itch and rash. Encourage ambulation. Dr Varela to determine about chemo options. BEKAH RICHARDSON MD Jul 12, 2016 14:04
[2016-07-12 15:29] LABS: ANION GAP 12 MEQ/L (5-15); BUN/CREATININE RATIO 19 RATIO (6-26); CHLORIDE 106 MEQ/L (98-107); CO2 - CARBON DIOXIDE 28 MEQ/L (22-30); CREATININE 1.1 MG/DL (0.7-1.2); GLOMERULAR FILTRATION RATE 50; GLUCOSE 92 MG/DL (65-110); LDH 627 U/L (313-618); SODIUM 146 MEQ/L (134-144)
[2016-07-12 15:43] VITALS: BP 119/65; PULSE 75; RESP 17; TEMP 96.6; O2SAT 98
--- NOTE | 2016-07-12 17:12 | NUR ---
SHIFT PT HAS BEEN PLEASANT AND COOPERATIVE ALL SHIFT. PT IS A&OX3, UP WITH NO ASSIST, LOW FALL. PT DENIES PAIN, N/V AND SOA. PT IS ON ROOM AIR. PT DID DEVELOP SOME ITCHING AND REDNESS THIS SHIFT, PRN BENADRYL GIVEN AND NEW IV ORDER ADDED. PT HAS AMBULATED IN [place], OUTSIDE IN [place], AND WITH FAMILY. PT EATS 100% OF MEALS AND HAS ADEQUATE OUT PUT. NO OTHER CHANGES SINCE PREVIOUS SHIFT.
[2016-07-12] MEDS: DiphenhydrAMINE 50 MG/ML INJECTION IV PRN (18:26)
--- NOTE | 2016-07-12 20:16 | PNPDOC ---
Subjective Date DATE: 07/12/16 TIME: 20:07 Feels fine now, she had a rash this morning while she in the shower. She was given benadryl and the rash went away. G-6PD normal, uric acid 7.0 Objective Vital Signs Vital Signs 07/12/16 07/12/16 08:42 15:43 Temp 96.6 Pulse 73 75 Resp 16 17 B/P 119/65 Pulse Ox 98 O2 Delivery Room Air Height (Feet): 5 Height (Inches): 6.00 Weight (Kilograms): 62.000 General Orientated x 3, Cooperative, No Acute Distress Respiratory (Brief) Respiratory: FOUND: clear all stevenson, equal bilaterally, NOT FOUND: rales Cardiovascular (Brief) Cardiac: FOUND: regular rate, regular rhythm Abdomen (Brief) Abdominal: FOUND: BS normo active x4, soft Lymphatic (Brief) FOUND: adenopathy Comments Axillary adenopathy. Psychiatric (Brief) FOUND: alert, attentive, normal affect, oriented Laboratory Laboratory Tests Test 07/12/16 04:01 07/12/16 15:00 White Blood Count 134.2T/MM3 Red Blood Count 3.05M/MM3 Hemoglobin 9.7GM/DL Hematocrit 31.8% Mean Corpuscular Volume 104.3UM3 Mean Corpuscular Hemoglobin 31.8UUG Mean Corpuscular Hemoglobin Concent 30.5GM/DL RDW Standard Deviation 60.8FL Platelet Count 149T/MM3 Mean Platelet Volume 9.2UM3 Immature Granulocyte % (Auto) % Neutrophils (%) (Auto) % Lymphocytes (%) (Auto) % Monocytes (%) (Auto) % Eosinophils (%) (Auto) % Basophils (%) (Auto) % Absolute Immature Granulocyte (auto T/MM3 Absolute Neutrophils (auto) T/MM3 Absolute Lymphocytes (auto) T/MM3 Absolute Monocytes (auto) T/MM3 Absolute Eosinophils (auto) T/MM3 Absolute Basophils (auto) T/MM3 Neutrophils % (Manual) 4.0% Lymphocytes % (Manual) 96.0% Absolute Neutrophils (Manual) 5.4T/MM3 Lymphocytes # (Manual) 128.8T/MM3 Anisocytosis 2+ Red Cell Morphology Comment Abnormal Turbidity < 20 < 20 Sodium Level 145MEQ/L 146MEQ/L Potassium Level 3.9MEQ/L 4.0MEQ/L Chloride Level 106MEQ/L 106MEQ/L Carbon Dioxide Level 31MEQ/L 28MEQ/L Anion Gap 8MEQ/L 12MEQ/L Blood Urea Nitrogen 23.0MG/DL 21.0MG/DL Creatinine 0.9MG/DL 1.1MG/DL Glomerular Filtration Rate Calc 62 50 BUN/Creatinine Ratio 26RATIO 19RATIO Glucose Level 98MG/DL 92MG/DL Calculated Osmolality 283MOSM/KG 284MOSM/KG Uric Acid 7.1MG/DL 7.0MG/DL Calcium Level 8.4MG/DL 9.0MG/DL Phosphorus Level 4.0MG/DL Magnesium Level 2.2MG/DL 2.0MG/DL Icterus Index < 2 < 2 Lactate Dehydrogenase 601U/L 627U/L Chemistry Specimen Hemolysis < 15 < 15 Assessment & Plan Assessment 1- Progressive CLL with interval adenopathy and worsening lymphocytosis. The patient had a very good response to Ibrutinib. 2- Tumor lysis, improved with urine alkalinization Plan/Intensity of Service Dr. Varela will see patient in am to discuss the option of trying a low dose of Ibrutinib again with close monitoring for tumor lysis and possible start of rasburicase. Code Status Full Code Hospital Course Summary Disclaimer The visit summary below is not to be considered part of the above Progress Note. Hospital Course Summary 07/10 patient S/P ibrutinib today. Patients uric acid and electrolytes are trending up. Will give IVF D5W with 2 amps bicarb and monitor labs Q4H overnight. Give supportive care. 07/11 Feeling better overall, but still some itching. Lab improving: LDH and uric acid trending down. Phos and magnesium normal. Potassium decreased - replace orally. Sodium increasing and creatinine with slight increase - will change IVF to D5W with 1 amp bicarb as pt needs more free water in IV. 07/12 Doing well this afternoon. Morning was rough-developed diffuse rash with severe itching just after she got in shower. Additional Benadryl give and rash/itching gradually resolved. Overall feeling well. Breathing normal-not feeling increased SOA, cough or congestion. Urinating well. Not having swelling to legs or hands. No nausea. No chest pain. Ambulating without problems. Creatinine to baseline at 0.9, Potassium normalized. Uric acid, LDH, phos, and magnesium normal. CO2 elevated at 31 due to IVF infusion. Continue IVF at 150 cc/hr Recheck BMP, uric acid and LDH this afternoon. Continue Benadryl as needed for itch and rash. Encourage ambulation. Dr Varela to determine about chemo options. BALAJI PETERSON MD Jul 12, 2016 20:12
--- NOTE | 2016-07-12 21:00 | NUR ---
activity up in room w/ good balance. Visits pleasantly during evening. Now going for a walk outside accompanied by family
--- NOTE | 2016-07-12 22:10 | NUR ---
rest pt. states "itching" is mild. Requests Benadryl PO and Ativan to assist w/ rest
[2016-07-13 00:29] VITALS: BP 107/66; PULSE 71; RESP 16; TEMP 96.6; O2SAT 98
[2016-07-13] MEDS: DiphenhydrAMINE 50 MG/ML INJECTION IV PRN (01:08)
[2016-07-13] MEDS: D5W IV SCH ×4 (01:09→20:45)
[2016-07-13] MEDS: SODIUM BICARB IV SCH ×4 (01:09→20:45)
--- NOTE | 2016-07-13 01:10 | NUR ---
comfort has been sleeping. Awakens easily for VS. Requests Benadryl IV for "skin starting to crawl"
--- NOTE | 2016-07-13 05:02 | NUR ---
rest sleeps restfully, resp. easy
[2016-07-13 05:16] LABS: HCT - HEMATOCRIT 31.6 % (36-46); HGB - HEMOGLOBIN 9.9 GM/DL (12-16); MEAN CORPUSCULAR HGB 32.7 UUG (26-34); MEAN CORPUSCULAR HGB CONC(MCHC 31.3 GM/DL (31-37); MEAN CORPUSCULAR VOLUME 104.3 UM3 (80-100); MEAN PLATELET VOLUME 9.6 UM3 (9.4-12.4); RED BLOOD COUNT 3.03 M/MM3 (4.00-5.20)
[2016-07-13 05:21] LABS: WBC - WHITE BLOOD COUNT 102.7 T/MM3 (4.5-11.0)
[2016-07-13 05:23] LABS: ALBUMIN 3.1 G/DL (3.5-5.0); ALBUMIN/GLOBULIN RATIO 0.9 RATIO (1.1-2.2); ALKALINE PHOSPHATASE 79 U/L (38-126); ALT (SGPT) 36 U/L (9-52); ANION GAP 10 MEQ/L (5-15); AST (SGOT) 33 U/L (14-36); BUN/CREATININE RATIO 27 RATIO (6-26); CALCIUM 8.7 MG/DL (8.4-10.2); CHLORIDE 104 MEQ/L (98-107); CO2 - CARBON DIOXIDE 31 MEQ/L (22-30); GLOMERULAR FILTRATION RATE 55; GLUCOSE 89 MG/DL (65-110); LDH 625 U/L (313-618); PHOSPHORUS 4.6 MG/DL (2.5-4.5); SODIUM 145 MEQ/L (134-144); TOTAL PROTEIN 6.4 G/DL (6.3-8.2); URIC ACID 6.4 MG/DL (2.5-7.5)
[2016-07-13 06:01] LABS: ANISOCYTOSIS 2+; LYMPHOCYTES # (MANUAL) 98.6 T/MM3 (1-4.8); NEUTROPHILS #(MANUAL)-ABSOLUTE 3.1 T/MM3 (1.8-7.7); TOTAL CELLS COUNTED 100 %
[2016-07-13] MEDS: LEVOTHYROXINE 150 MCG TABLET PO SCH (06:22)
[2016-07-13 07:25] VITALS: BP 129/66; PULSE 68; RESP 16; TEMP 95.6; O2SAT 99
[2016-07-13] MEDS: ACYCLOVIR 200 MG CAPSULE PO SCH ×2 (08:21→21:08)
--- NOTE | 2016-07-13 08:24 | PNPDOC ---
HERMANN CARPIO GIA 07/13/16 0817: Subjective Date DATE: 07/13/16 TIME: 08:13 Sitting on bedside. Initially alone in room, then daughter presented and was included in plan of care discussion. She is alert and oriented. Denies fever, chills, night sweats. Feels her lumps have decreased in size. Had single episode of rash that occurred almost immediately after she started showering yesterday. Rash improved quickly with Benadryl. Minimal rash today on bilateral lower anterior legs; rash has petechial appearance. No other complaints. She is anxious to continue Ibrutinib if okay with Dr. Varela General: No fever, no night sweats Eyes: No redness, no pain, no diplopia ENT: No mouth sores, no trouble swallowing Lymphadenopathy: Bilateral axillary present, subjectively feels has decreased in size. Mass lower left lateral lumbar spine has resolved Cardiac: No chest pain no palpitations Pulmonary: No cough, no shortness of breath, no wheezing Abdomen: No pain, no nausea vomiting, no diarrhea or constipation : No urgency, frequency, dysuria, or hematuria Musculoskeletal: No arthritis, no myalgias Neurological: No headaches, no focal weakness Skin: Positive rash lower legs. No itching Psychiatric: No anxiety, no depression Objective Vital Signs Vital Signs 07/13/16 07/13/16 00:29 07:25 Temp 96.6 95.6 Pulse 71 68 Resp 16 16 B/P 107/66 129/66 Pulse Ox 98 99 O2 Delivery Room Air Room Air Height (Feet): 5 Height (Inches): 6.00 Weight (Kilograms): 61.400 General Alert, Orientated x 3, No Acute Distress Eyes (Brief) Eyes: FOUND: PERRL, NOT FOUND: scleral icterus Neck (Brief) Neck: NOT FOUND: adenopathy, tenderness Respiratory (Brief) Respiratory: FOUND: clear all stevenson, equal bilaterally, NOT FOUND: rales Cardiovascular (Brief) Cardiac: FOUND: regular rate, regular rhythm Abdomen (Brief) Abdominal: FOUND: BS normo active x4, soft, NOT FOUND: hepatosplenomegaly Lymphatic (Brief) FOUND: adenopathy (positive bilateral axillary lymphadenopathy, mild decrease in size), other (left lower lumbar area mass has resolved) Musculoskeletal (Brief) NOT FOUND: loss of motion, tenderness Neurologic (Brief) FOUND: cranial 2-12 intact, NOT FOUND: motor (no acute motor deficit) Psychiatric (Brief) FOUND: alert, attentive, normal affect, oriented Laboratory Laboratory Tests Test 07/12/16 15:00 07/13/16 04:07 Turbidity < 20 < 20 Sodium Level 146MEQ/L 145MEQ/L Potassium Level 4.0MEQ/L 4.0MEQ/L Chloride Level 106MEQ/L 104MEQ/L Carbon Dioxide Level 28MEQ/L 31MEQ/L Anion Gap 12MEQ/L 10MEQ/L Blood Urea Nitrogen 21.0MG/DL 27.0MG/DL Creatinine 1.1MG/DL 1.0MG/DL Glomerular Filtration Rate Calc 50 55 BUN/Creatinine Ratio 19RATIO 27RATIO Glucose Level 92MG/DL 89MG/DL Calculated Osmolality 284MOSM/KG 283MOSM/KG Uric Acid 7.0MG/DL 6.4MG/DL Calcium Level 9.0MG/DL 8.7MG/DL Magnesium Level 2.0MG/DL 2.0MG/DL Icterus Index < 2 < 2 Lactate Dehydrogenase 627U/L 625U/L Chemistry Specimen Hemolysis < 15 < 15 White Blood Count 102.7T/MM3 Red Blood Count 3.03M/MM3 Hemoglobin 9.9GM/DL Hematocrit 31.6% Mean Corpuscular Volume 104.3UM3 Mean Corpuscular Hemoglobin 32.7UUG Mean Corpuscular Hemoglobin Concent 31.3GM/DL RDW Standard Deviation 61.5FL Platelet Count 150T/MM3 Mean Platelet Volume 9.6UM3 Immature Granulocyte % (Auto) % Neutrophils (%) (Auto) % Lymphocytes (%) (Auto) % Monocytes (%) (Auto) % Eosinophils (%) (Auto) % Basophils (%) (Auto) % Absolute Immature Granulocyte (auto T/MM3 Absolute Neutrophils (auto) T/MM3 Absolute Lymphocytes (auto) T/MM3 Absolute Monocytes (auto) T/MM3 Absolute Eosinophils (auto) T/MM3 Absolute Basophils (auto) T/MM3 Neutrophils % (Manual) 3.0% Lymphocytes % (Manual) 96.0% Monocytes % (Manual) 1.0% Absolute Neutrophils (Manual) 3.1T/MM3 Lymphocytes # (Manual) 98.6T/MM3 Monocytes # (Manual) 1.0T/MM3 Anisocytosis 2+ Red Cell Morphology Comment Abnormal Phosphorus Level 4.6MG/DL Total Bilirubin 0.60MG/DL Aspartate Amino Transf (AST/SGOT) 33U/L Alanine Aminotransferase (ALT/SGPT) 36U/L Alkaline Phosphatase 79U/L Total Protein 6.4G/DL Albumin 3.1G/DL Globulin 3.3G/DL Albumin/Globulin Ratio 0.9RATIO Assessment & Plan Assessment 1- Progressive CLL with interval adenopathy and worsening lymphocytosis. The patient had a very good response to Ibrutinib. WBC today 102.7, decreased from baseline of 133.4 day of admit, 07/11/16. 2- Tumor lysis, improved with urine alkalinization. Labs today: Uric acid 6.4, Creatinine 1.0, potassium 4.0, calcium 8.7, phosphorus 4.6 Plan/Intensity of Service Dr. Varela had long discussion with patient/daughter about plan. Give 1 tablet Ibrutinib today, then follow labs closely. Continue urine alkalinization and IV fluids. Plan rasburicase only if needed. Following discussion, all of patient's and daughter's questions are addressed. Code Status Full Code Hospital Course Summary Disclaimer The visit summary below is not to be considered part of the above Progress Note. Hospital Course Summary 07/10 patient S/P ibrutinib today. Patients uric acid and electrolytes are trending up. Will give IVF D5W with 2 amps bicarb and monitor labs Q4H overnight. Give supportive care. 07/11 Feeling better overall, but still some itching. Lab improving: LDH and uric acid trending down. Phos and magnesium normal. Potassium decreased - replace orally. Sodium increasing and creatinine with slight increase - will change IVF to D5W with 1 amp bicarb as pt needs more free water in IV. 07/12 Doing well this afternoon. Morning was rough-developed diffuse rash with severe itching just after she got in shower. Additional Benadryl give and rash/itching gradually resolved. Overall feeling well. Breathing normal-not feeling increased SOA, cough or congestion. Urinating well. Not having swelling to legs or hands. No nausea. No chest pain. Ambulating without problems. Creatinine to baseline at 0.9, Potassium normalized. Uric acid, LDH, phos, and magnesium normal. CO2 elevated at 31 due to IVF infusion. Continue IVF at 150 cc/hr Recheck BMP, uric acid and LDH this afternoon. Continue Benadryl as needed for itch and rash. Encourage ambulation. Dr Varela to determine about chemo options. CHRISTOPHER VARELA 07/13/16 0817: Objective Laboratory Item Value Date Time Hemoglobin 7.4 GM/DL L 02/17/16416 Hemoglobin 7.7 GM/DL L 02/16/16525 White Blood Count 17.4 T/MM3 H 02/17/16416 White Blood Count 18.6 T/MM3 H 02/16/16 05 Platelet Count 182 T/MM3 02/17/16416 Platelet Count 163 T/MM3 02/16/16 05 Neutrophils % (Manual) 26.0 % L 02/17/16416 Neutrophils % (Manual) 33.0 % 02/16/16525 Neutrophils % (Manual) 19.0 % L 02/15/16413 Lymphocytes % (Manual) 74.0 % H 02/17/16416 Lymphocytes % (Manual) 67.0 % H 02/16/16 05 Lymphocytes % (Manual) 79.0 % H 02/15/16413 Total Protein 4.8 G/DL L 02/17/16416 Albumin 2.2 G/DL L 02/17/16416 Aspartate Amino Transf (AST/SGOT) 73 U/L H 02/17/16416 Total Bilirubin 0.30 MG/DL 02/17/16416 White Blood Count 17.7 T/MM3 H 02/18/16 044 Hemoglobin 7.9 GM/DL L 02/18/16440 Mean Corpuscular Volume 106.7 UM3 H 02/18/16 0441 Neutrophils % (Manual) 23.0 % L 02/18/16 044 Absolute Neutrophils (Manual) 4.1 T/MM3 02/18/16 044 Percent Reticulocyte Count 0.7 % 02/17/16416 Creatinine 0.8 MG/DL 02/18/16 0441 Uric Acid 6.7 MG/DL 07/13/16 1404 Uric Acid 6.4 MG/DL 07/13/16 0407 Phosphorus Level 4.6 MG/DL H 07/13/16 1404 Phosphorus Level 4.6 MG/DL H 07/13/16 0407 Creatinine 1.0 MG/DL 07/13/16 1404 Creatinine 1.0 MG/DL 07/13/16 0407 Magnesium Level 2.0 MG/DL 07/13/16 1404 Lactate Dehydrogenase 546 U/L 07/13/16 1404 Alkaline Phosphatase 79 U/L 07/13/16 0407 Assessment & Plan Assessment Patient examined, chart reviewed, I participated development of plan of care with this patient. Agree with documentation by Carolina Carpio. She has minimal rash on her lower legs that does not appear to be worsening. We'll give 140 mg tablet of ibrutinib this morning. And follow closely for tumor lysis. Rechecked uric acid at 2 PM and it was 6.7 without significant changes and other parameters. Will check these values again tonight at 8 PM. We'll continue to follow these values closely. Will use rasburicase should uric acid increase. Discussed use of this drug with the patient and her daughter. HERMANN CARPIO APRN Jul 13, 2016 08:17 CHRISTOPHER VARELA Jul 13, 2016 17:41
[2016-07-13] MEDS ORDERED: IBRUTINIB 140 MG PO ONE (08:30)
[2016-07-13 08:36] VITALS: PULSE 72
--- NOTE | 2016-07-13 09:40 | NUR ---
Ibrutinib 140 mg given po will monitor for signs and symptoms.
--- NOTE | 2016-07-13 11:23 | NUR ---
states is feeling fine no rash or itching reported family at bedside.
--- NOTE | 2016-07-13 11:36 | NUR ---
BRIANA CM VISITED WITH PT. CM PROVIDED PT WITH CONTACT INFORMATION. PT VISITS WITH FAMILY. PT AWARE TO CALL CM SHOULD NEEDS ARISE.
[2016-07-13 14:46] LABS: ALBUMIN 3.5 G/DL (3.5-5.0); ALKALINE PHOSPHATASE 84 U/L (38-126); ALT (SGPT) 36 U/L (9-52); ANION GAP 12 MEQ/L (5-15); AST (SGOT) 32 U/L (14-36); BUN/CREATININE RATIO 21 RATIO (6-26); CALCIUM 8.9 MG/DL (8.4-10.2); CHLORIDE 103 MEQ/L (98-107); CO2 - CARBON DIOXIDE 30 MEQ/L (22-30); GLOMERULAR FILTRATION RATE 55; GLUCOSE 123 MG/DL (65-110); LDH 546 U/L (313-618); POTASSIUM 3.7 MEQ/L (3.6-5); SODIUM 145 MEQ/L (134-144); TOTAL PROTEIN 7.1 G/DL (6.3-8.2)
[2016-07-13 14:47] LABS: PHOSPHORUS 4.6 MG/DL (2.5-4.5); URIC ACID 6.7 MG/DL (2.5-7.5)
[2016-07-13 15:08] VITALS: BP 119/63; PULSE 82; RESP 16; TEMP 97.1; O2SAT 97
--- NOTE | 2016-07-13 15:38 | NUR ---
CM CM VISITED WITH PT ABOUT RIGHT ON TRACK PROGRAM, FLYER PROVIDED. PT HAS AGREED TO RIGHT ON TRACH PROGRAM.
--- NOTE | 2016-07-13 16:15 | PNPDOC ---
Subjective Date DATE: 07/13/16 TIME: 16:05 Subjective F/U: CLL with treatment - at risk for tumor lysis syndrome Doing well this afternoon. Received Ibrutnib 140mg this morning. Had some itching for about 30-45 minutes, but improved. Notes rash to her right lower leg , but not terribly itchy or uncomfortable. No difficulty breathing. No nausea. Feeling very well overall. Urinating well. Not having increased edema. No f/c. Objective Vital Signs Vital signs Vital Signs Date Time Temp Pulse Resp B/P Pulse Ox O2 Delivery O2 Flow Rate FiO2 07/13/16 15:08 97.1 82 16 119/63 97 Room Air Height (Feet): 5 Height (Inches): 6.00 Weight (Kilograms): 61.400 General General Appearance: Alert, Orientated x 3, Well Nourished, Well Developed, Cooperative, Looks Stated Age Eyes (Brief) Eyes: FOUND: EOMI, PERRL, NOT FOUND: scleral icterus ENMT (Brief) ENMT: FOUND: hearing intact, mucosa moist Neck (Brief) Neck: FOUND: midline, NOT FOUND: nuchal rigidity, spasm Respiratory (Brief) Respiratory: FOUND: clear all stevenson, equal bilaterally, NOT FOUND: rales, wheezes Cardiovascular (Brief) Cardiac: FOUND: regular rate, regular rhythm, NOT FOUND: pedal edema Abdomen (Brief) Abdominal: FOUND: BS normo active x4, soft, NOT FOUND: distended, tender Extremities (Brief) Extremity : Side: Bilateral Extremity: leg Extremity Finding: NOT FOUND: edema Musculoskeletal (Brief) Musculoskeletal: FOUND: extremities move equally, NOT FOUND: deformity, loss of motion, spasm, tenderness Integumentary (Brief) Integumentary: FOUND: dry, rash (Right lower leg ), warm Neurologic (Brief) Neurological: FOUND: cranial 2-12 intact, motor (intact ) Psychiatric (Brief) Psychiatric: FOUND: alert, attentive, normal affect, oriented Laboratory Laboratory Laboratory Tests 07/11/16 18:26 07/12/16 04:01 07/12/16 15:00 07/13/16 04:07 07/13/16 14:04 Laboratory Tests 07/11/16 18:26 07/12/16 04:01 07/13/16 04:07 Assessment & Plan Problems: (1) At high risk of tumor lysis syndrome (2) Chronic lymphocytic leukemia Onset Date: ~ 2012 Status: Chronic Assessment & Plan: 07/13: Ibrutnib 140mg (3) Hypothyroid Status: Chronic Qualifiers: Hypothyroidism type: acquired Qualified Codes: E03.9 - Hypothyroidism, unspecified (4) Generalized pruritus Status: Acute (5) Hyperphosphatemia Status: Acute Assessment & Plan: POA (6) Elevated blood uric acid level Status: Resolved Assessment & Plan: POA (7) Elevated LDH Status: Resolved Assessment & Plan: POA (8) Hypokalemia Status: Resolved Assessment & Plan: Not POA Plan/Intensity of Service Continue IVF at 150 cc/hr - D5W with 2 amps sodium bicarb. Recheck BMP, uric acid, phos and LDH this evening. Continue Benadryl as needed for itch and rash. Currently tolerating chemo well - no evidence of tumor lysis with this am dose Monitor for symptoms. Encourage ambulation. Recheck lab in am. Case discussed with Dr Varela. DVT Prophylaxis: SCD'S, other (Ambulation ) Code Status Full Code Hospital Course Summary Disclaimer The hospital course summary below is not to be considered part of the above Progress Note. Hospital Course Summary 07/10 patient S/P ibrutinib today. Patients uric acid and electrolytes are trending up. Will give IVF D5W with 2 amps bicarb and monitor labs Q4H overnight. Give supportive care. 07/11 Feeling better overall, but still some itching. Lab improving: LDH and uric acid trending down. Phos and magnesium normal. Potassium decreased - replace orally. Sodium increasing and creatinine with slight increase - will change IVF to D5W with 1 amp bicarb as pt needs more free water in IV. 07/12 Doing well this afternoon. Morning was rough-developed diffuse rash with severe itching just after she got in shower. Additional Benadryl give and rash/itching gradually resolved. Overall feeling well. Breathing normal-not feeling increased SOA, cough or congestion. Urinating well. Not having swelling to legs or hands. No nausea. No chest pain. Ambulating without problems. Creatinine to baseline at 0.9, Potassium normalized. Uric acid, LDH, phos, and magnesium normal. CO2 elevated at 31 due to IVF infusion. Continue IVF at 150 cc/hr - IVF change to 2amp sodium bicarb this evening. Recheck BMP, uric acid and LDH this afternoon. Continue Benadryl as needed for itch and rash. Encourage ambulation. Dr Varela to determine about chemo options - Starting Ibrutnib 140mg on 07/13. 07/13 Doing well this afternoon. Received Ibrutnib 140mg this morning. Had some itching for about 30-45 minutes, but improved. Notes rash to her right lower leg , but not terribly itchy or uncomfortable. No difficulty breathing. No nausea. Feeling very well overall. Urinating well. Not having increased edema. No f/c. Continue IVF at 150 cc/hr - D5W with 2 amps sodium bicarb. Recheck BMP, uric acid, phos and LDH this evening. Continue Benadryl as needed for itch and rash. Currently tolerating chemo well - no evidence of tumor lysis with this am dose Monitor for symptoms. Encourage ambulation. Recheck lab in am. BEKAH RICHARDSON MD Jul 13, 2016 16:09
--- NOTE | 2016-07-13 18:10 | NUR ---
co of feeling itchy arms and legs are warm and reddedend feels hot Benadryl 50 mg given po denies any soa or chest pain.continue to observe labs values are improving.
[2016-07-13] MEDS: DiphenhydrAMINE 25 MG CAPSULE PO PRN (18:12)
[2016-07-13 20:00] VITALS: RESP 16
[2016-07-13 20:20] LABS: ANION GAP 12 MEQ/L (5-15); BUN/CREATININE RATIO 27 RATIO (6-26); CHLORIDE 102 MEQ/L (98-107); CO2 - CARBON DIOXIDE 29 MEQ/L (22-30); CREATININE 1.1 MG/DL (0.7-1.2); GLOMERULAR FILTRATION RATE 50; GLUCOSE 137 MG/DL (65-110); LDH 575 U/L (313-618); PHOSPHORUS 4.9 MG/DL (2.5-4.5); SODIUM 143 MEQ/L (134-144); URIC ACID 6.6 MG/DL (2.5-7.5)
[2016-07-13 20:50] VITALS: RESP 16
--- NOTE | 2016-07-13 20:55 | NUR ---
RASH/ITCHING: PT COMPLAINED OF RASH ON HER LEGS (ITCHING LEGS). I ASSESSED LEGS, THEY HAD A RED RASH ON BOTH LEGS BELOW AND ABOVE THE KNEES (FELT WARM). SENT TIGER TEXT AND REC'D A CALL BACK FROM DR. SANDRA WHO PRESCRIBED SOLU MEDROL (SEE EMAR). PT'S RASH RESPONDED WELL TO TREATMENT, NO LONGER ITCHY AND RASH DIMINISHED SIGNIFICANTLY.
[2016-07-14] VITALS (7 sets, daily range): BP systolic 119–137; BP diastolic 66–75; PULSE 71–84; RESP 10–16; TEMP 96.5–97; O2SAT 95–97
[2016-07-14] MEDS: DiphenhydrAMINE 50 MG/ML INJECTION IV PRN (00:31)
--- NOTE | 2016-07-14 00:35 | NUR ---
RASH/ITCHING: PT COMPLAINED OF RASH RETURNING (ON HER LEGS, ITCHY). I ASSESSED LEGS, MINIMAL RASH ON BOTH LEGS BELOW THE KNEES (FELT WARM). ADMINISTERED PRN BENADRYL (50 MG IV). PT'S RASH RESPONDED WELL TO TREATMENT, NO LONGER ITCHY AND RASH DIMINISHED SIGNIFICANTLY. WILL CONTINUE TO MONITOR.
[2016-07-14] MEDS: SODIUM BICARB IV SCH ×3 (03:27→16:02)
[2016-07-14] MEDS: D5W IV SCH ×3 (03:27→16:02)
[2016-07-14 05:11] LABS: HCT - HEMATOCRIT 30.8 % (36-46); HGB - HEMOGLOBIN 10.1 GM/DL (12-16); MEAN CORPUSCULAR HGB 33.3 UUG (26-34); MEAN CORPUSCULAR HGB CONC(MCHC 32.8 GM/DL (31-37); MEAN CORPUSCULAR VOLUME 101.7 UM3 (80-100); MEAN PLATELET VOLUME 9.2 UM3 (9.4-12.4); RED BLOOD COUNT 3.03 M/MM3 (4.00-5.20)
[2016-07-14 05:21] LABS: ALBUMIN 3.2 G/DL (3.5-5.0); ALBUMIN/GLOBULIN RATIO 0.9 RATIO (1.1-2.2); ALKALINE PHOSPHATASE 83 U/L (38-126); ALT (SGPT) 31 U/L (9-52); ANION GAP 10 MEQ/L (5-15); AST (SGOT) 31 U/L (14-36); BUN/CREATININE RATIO 37 RATIO (6-26); CALCIUM 8.6 MG/DL (8.4-10.2); CHLORIDE 105 MEQ/L (98-107); CO2 - CARBON DIOXIDE 30 MEQ/L (22-30); CREATININE 0.9 MG/DL (0.7-1.2); GLOMERULAR FILTRATION RATE 62; GLUCOSE 160 MG/DL (65-110); LDH 581 U/L (313-618); MAGNESIUM 2.1 MG/DL (1.6-2.3); PHOSPHORUS 4.4 MG/DL (2.5-4.5); SODIUM 145 MEQ/L (134-144); TOTAL PROTEIN 6.6 G/DL (6.3-8.2); URIC ACID 9.5 MG/DL (2.5-7.5)
[2016-07-14 05:53] LABS: WBC - WHITE BLOOD COUNT 148.8 T/MM3 (4.5-11.0)
[2016-07-14 06:41] LABS: LYMPHOCYTES # (MANUAL) 147.3 T/MM3 (1-4.8); NEUTROPHILS #(MANUAL)-ABSOLUTE 1.5 T/MM3 (1.8-7.7); SMUDGE CELLS 2+; TOTAL CELLS COUNTED 100 %
[2016-07-14 06:42] LABS: ANISOCYTOSIS 2+; POIKILOCYTOSIS 1+; TEAR DROP CELLS 1+
[2016-07-14] MEDS: LEVOTHYROXINE 150 MCG TABLET PO SCH (06:51)
--- NOTE | 2016-07-14 07:54 | NUR ---
SHIFT REPORT: PT IS A&OX3, FRIENDLY, AND COOPERATIVE. WAS IN ROOM AT THE BEGINNING OF MY SHIFT, BUT LEFT AT 20:00 (APPROXIMATELY). ON RA, UP AT [facility]NAY[facility]I, DENIES PAIN, N/V AND SOA, GOOD URINE OUTPUT, FLUIDS RUNNING, ON TELEMETRY. CALL LIGHT WITHIN REACH, BED ALARM ON.
--- NOTE | 2016-07-14 08:28 | PNPDOC ---
Subjective Date DATE: 07/14/16 TIME: 08:21 Patient feels well this morning she has no rash and no itching. At 7 PM last night she had the intensive onset of burning of her skin along with itching. She was given Benadryl and Solu-Medrol symptoms resolved rapidly. Review of systems: Gen.: Negative for fever or chills, malaise Eyes: Negative eye discharge, eye pain ENT: Negative for nosebleeds, mouth sores Lymph: Positive enlarged lymph nodes, no night sweats Respiratory: Negative for cough, shortness of breath, hemoptysis, Cardiac: Negative for chest pain, palpitations, or swelling GI: Negative for nausea, negative for vomiting, negative for diarrhea Genitourinary: No urgency, no dysuria, no hematuria Musculoskeletal: Negative for weakness, no joint pain Neurologic: Negative for headache, negative for focal weakness, negative for numbness Skin: Positive for pruritus Objective Vital Signs Vital Signs 07/13/16 07/14/16 07/14/16 20:50 00:15 07:15 Temp 96.5 96.6 Pulse 80 84 Resp 16 16 14 B/P 126/71 121/67 Pulse Ox 96 96 O2 Delivery Room Air Room Air Height (Feet): 5 Height (Inches): 6.00 Weight (Kilograms): 62.600 General Alert, No Acute Distress Eyes (Brief) Eyes: FOUND: PERRL, NOT FOUND: scleral icterus ENMT (Brief) ENMT: FOUND: mucosa moist, NOT FOUND: lesions Neck (Brief) Neck: NOT FOUND: adenopathy, tenderness Respiratory (Brief) Respiratory: FOUND: clear all stevenson, equal bilaterally, NOT FOUND: rales Cardiovascular (Brief) Cardiac: FOUND: regular rate, regular rhythm, NOT FOUND: murmur Abdomen (Brief) Abdominal: FOUND: BS normo active x4, soft, NOT FOUND: hepatosplenomegaly, tender Lymphatic (Brief) FOUND: adenopathy (positive bilateral axillary lymphadenopathy, mild decrease in size), other (left lower lumbar area mass has resolved) Musculoskeletal (Brief) NOT FOUND: loss of motion, tenderness Neurologic (Brief) FOUND: cranial 2-12 intact, NOT FOUND: motor (no acute motor deficit) Psychiatric (Brief) FOUND: alert, attentive, normal affect, oriented Laboratory Laboratory Tests Test 07/13/16 14:04 07/13/16 20:03 07/14/16 03:58 Turbidity < 20 < 20 < 20 Sodium Level 145MEQ/L 143MEQ/L 145MEQ/L Potassium Level 3.7MEQ/L 4.0MEQ/L 4.0MEQ/L Chloride Level 103MEQ/L 102MEQ/L 105MEQ/L Carbon Dioxide Level 30MEQ/L 29MEQ/L 30MEQ/L Anion Gap 12MEQ/L 12MEQ/L 10MEQ/L Blood Urea Nitrogen 21.0MG/DL 30.0MG/DL 33.0MG/DL Creatinine 1.0MG/DL 1.1MG/DL 0.9MG/DL Glomerular Filtration Rate Calc 55 50 62 BUN/Creatinine Ratio 21RATIO 27RATIO 37RATIO Glucose Level 123MG/DL 137MG/DL 160MG/DL Calculated Osmolality 283MOSM/KG 283MOSM/KG 289MOSM/KG Uric Acid 6.7MG/DL 6.6MG/DL 9.5MG/DL Calcium Level 8.9MG/DL 9.0MG/DL 8.6MG/DL Phosphorus Level 4.6MG/DL 4.9MG/DL 4.4MG/DL Magnesium Level 2.0MG/DL 2.1MG/DL Total Bilirubin 0.60MG/DL 0.50MG/DL Icterus Index < 2 < 2 < 2 Aspartate Amino Transf (AST/SGOT) 32U/L 31U/L Alanine Aminotransferase (ALT/SGPT) 36U/L 31U/L Alkaline Phosphatase 84U/L 83U/L Lactate Dehydrogenase 546U/L 575U/L 581U/L Total Protein 7.1G/DL 6.6G/DL Albumin 3.5G/DL 3.2G/DL Globulin 3.6G/DL 3.4G/DL Albumin/Globulin Ratio 1.0RATIO 0.9RATIO Chemistry Specimen Hemolysis < 15 < 15 < 15 White Blood Count 148.8T/MM3 Red Blood Count 3.03M/MM3 Hemoglobin 10.1GM/DL Hematocrit 30.8% Mean Corpuscular Volume 101.7UM3 Mean Corpuscular Hemoglobin 33.3UUG Mean Corpuscular Hemoglobin Concent 32.8GM/DL RDW Standard Deviation 60.0FL Platelet Count 157T/MM3 Mean Platelet Volume 9.2UM3 Immature Granulocyte % (Auto) % Neutrophils (%) (Auto) % Lymphocytes (%) (Auto) % Monocytes (%) (Auto) % Eosinophils (%) (Auto) % Basophils (%) (Auto) % Absolute Immature Granulocyte (auto T/MM3 Absolute Neutrophils (auto) T/MM3 Absolute Lymphocytes (auto) T/MM3 Absolute Monocytes (auto) T/MM3 Absolute Eosinophils (auto) T/MM3 Absolute Basophils (auto) T/MM3 Neutrophils % (Manual) 1.0% Lymphocytes % (Manual) 99.0% Absolute Neutrophils (Manual) 1.5T/MM3 Lymphocytes # (Manual) 147.3T/MM3 Smudge Cells 2+ Poikilocytosis 1+ Anisocytosis 2+ Tear Drop Cells 1+ Red Cell Morphology Comment Abnormal Assessment & Plan Assessment CLL with progressive disease. Restarted ibrutinib on 07/10/10 with a challenge of 1 pill. This was associated with tumor lysis. She had slight redness with the first pill with itching on her legs. She had one pill on 07/13 and had intense burning of the skin at 7 PM. This was relieved with Benadryl and Solu- Medrol. Symptoms have resolved this morning. We'll continue one pill of ibrutinib today. If she has another reaction later tonight. Will discontinue this medication 2. 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 She had elevation of her uric acid after one ibrutinib from yesterday it is gone from 6.7-9.6. No other evidence of tumor lysis. Will repeat uric acid every 4 hours during the day today and consider rasburicase if uric acid goes to greater than 10.5 Plan/Intensity of Service 1 tablet Ibrutinib again today, then follow labs closely. Continue urine alkalinization and IV fluids. Plan rasburicase only if needed. Code Status Full Code Hospital Course Summary Disclaimer The visit summary below is not to be considered part of the above Progress Note. Hospital Course Summary 07/10 patient S/P ibrutinib today. Patients uric acid and electrolytes are trending up. Will give IVF D5W with 2 amps bicarb and monitor labs Q4H overnight. Give supportive care. 07/11 Feeling better overall, but still some itching. Lab improving: LDH and uric acid trending down. Phos and magnesium normal. Potassium decreased - replace orally. Sodium increasing and creatinine with slight increase - will change IVF to D5W with 1 amp bicarb as pt needs more free water in IV. 07/12 Doing well this afternoon. Morning was rough-developed diffuse rash with severe itching just after she got in shower. Additional Benadryl give and rash/itching gradually resolved. Overall feeling well. Breathing normal-not feeling increased SOA, cough or congestion. Urinating well. Not having swelling to legs or hands. No nausea. No chest pain. Ambulating without problems. Creatinine to baseline at 0.9, Potassium normalized. Uric acid, LDH, phos, and magnesium normal. CO2 elevated at 31 due to IVF infusion. Continue IVF at 150 cc/hr - IVF change to 2amp sodium bicarb this evening. Recheck BMP, uric acid and LDH this afternoon. Continue Benadryl as needed for itch and rash. Encourage ambulation. Dr Varela to determine about chemo options - Starting Ibrutnib 140mg on 07/13. 07/13 Doing well this afternoon. Received Ibrutnib 140mg this morning. Had some itching for about 30-45 minutes, but improved. Notes rash to her right lower leg , but not terribly itchy or uncomfortable. No difficulty breathing. No nausea. Feeling very well overall. Urinating well. Not having increased edema. No f/c. Continue IVF at 150 cc/hr - D5W with 2 amps sodium bicarb. Recheck BMP, uric acid, phos and LDH this evening. Continue Benadryl as needed for itch and rash. Currently tolerating chemo well - no evidence of tumor lysis with this am dose Monitor for symptoms. Encourage ambulation. Recheck lab in am. CHRISTOPHER VARELA Jul 14, 2016 08:24
[2016-07-14] MEDS ORDERED: IBRUTINIB 140 MG PO ONE (08:30)
[2016-07-14] MEDS: ACYCLOVIR 200 MG CAPSULE PO SCH ×2 (08:35→21:20)
[2016-07-14 12:10] LABS: ANION GAP 10 MEQ/L (5-15); BUN/CREATININE RATIO 34 RATIO (6-26); CALCIUM 8.4 MG/DL (8.4-10.2); CHLORIDE 105 MEQ/L (98-107); CO2 - CARBON DIOXIDE 31 MEQ/L (22-30); CREATININE 0.8 MG/DL (0.7-1.2); GLOMERULAR FILTRATION RATE 72; GLUCOSE 116 MG/DL (65-110); POTASSIUM 3.9 MEQ/L (3.6-5); SODIUM 146 MEQ/L (134-144); URIC ACID 8.8 MG/DL (2.5-7.5)
--- NOTE | 2016-07-14 13:11 | PNPDOC ---
Subjective Date DATE: 07/14/16 TIME: 13:03 Subjective F/U: CLL with treatment - at risk for tumor lysis syndrome Last night was rough - started getting rash and itching about 1900 - lasted unit 0400 this am. Benadryl and Solu-Medrol given. Uric acid with increase this am. Did receive chemo this morning. Doing well this afternoon - not having itch or rash. Breathing well. Swallowing well. No f/c. Not developing edema or arms or legs. Ambulating without difficulty - trying to stay active. No nausea or ab pain. Urinating well. Objective Vital Signs Vital signs Vital Signs Date Time Temp Pulse Resp B/P Pulse Ox O2 Delivery O2 Flow Rate FiO2 07/14/16 08:47 84 16 07/14/16 07:15 96.6 121/67 96 Room Air Height (Feet): 5 Height (Inches): 6.00 Weight (Kilograms): 62.600 General General Appearance: Alert, Orientated x 3, Well Nourished, Well Developed, Cooperative, Looks Stated Age Eyes (Brief) Eyes: FOUND: EOMI, PERRL, NOT FOUND: scleral icterus ENMT (Brief) ENMT: FOUND: hearing intact, mucosa moist Neck (Brief) Neck: FOUND: midline, NOT FOUND: nuchal rigidity, spasm Respiratory (Brief) Respiratory: FOUND: clear all stevenson, equal bilaterally, NOT FOUND: rales, wheezes Cardiovascular (Brief) Cardiac: FOUND: regular rate, regular rhythm, NOT FOUND: pedal edema Abdomen (Brief) Abdominal: FOUND: BS normo active x4, soft, NOT FOUND: distended, tender Extremities (Brief) Extremity : Side: Bilateral Extremity: leg Extremity Finding: NOT FOUND: edema Musculoskeletal (Brief) Musculoskeletal: FOUND: extremities move equally, NOT FOUND: deformity, loss of motion, spasm, tenderness Integumentary (Brief) Integumentary: FOUND: dry, warm Neurologic (Brief) Neurological: FOUND: cranial 2-12 intact, motor (intact ) Psychiatric (Brief) Psychiatric: FOUND: alert, attentive, normal affect, oriented Laboratory Laboratory Laboratory Tests 07/12/16 15:00 07/13/16 04:07 07/13/16 14:04 07/13/16 20:03 07/14/16 03:58 07/14/16 11:49 Laboratory Tests 07/13/16 04:07 07/14/16 03:58 Assessment & Plan Problems: (1) At high risk of tumor lysis syndrome (2) Chronic lymphocytic leukemia Onset Date: ~ 2012 Status: Chronic Assessment & Plan: 07/13: Ibrutnib 140mg (3) Hypothyroid Status: Chronic Qualifiers: Hypothyroidism type: acquired Qualified Codes: E03.9 - Hypothyroidism, unspecified (4) Generalized pruritus Status: Resolved (5) Hyperphosphatemia Status: Acute Assessment & Plan: POA (6) Elevated blood uric acid level Status: Resolved Assessment & Plan: POA (7) Elevated LDH Status: Resolved Assessment & Plan: POA (8) Hypokalemia Status: Resolved Assessment & Plan: Not POA Plan/Intensity of Service Received Ibrutnib 140mg this morning. Recheck Uric acid 4 hours post medication not showing elevation. Continue to monitor throughout day. Continue IVF at 150 cc/hr - D5W with 3 amps sodium bicarb. Continue Benadryl and Solu-Medrol as needed for itch and rash. Encourage ambulation. Recheck lab in am. DVT Prophylaxis: other (ambulation) Code Status Full Code Hospital Course Summary Disclaimer The hospital course summary below is not to be considered part of the above Progress Note. Hospital Course Summary 07/10 patient S/P ibrutinib today. Patients uric acid and electrolytes are trending up. Will give IVF D5W with 2 amps bicarb and monitor labs Q4H overnight. Give supportive care. 07/11 Feeling better overall, but still some itching. Lab improving: LDH and uric acid trending down. Phos and magnesium normal. Potassium decreased - replace orally. Sodium increasing and creatinine with slight increase - will change IVF to D5W with 1 amp bicarb as pt needs more free water in IV. 07/12 Doing well this afternoon. Morning was rough-developed diffuse rash with severe itching just after she got in shower. Additional Benadryl give and rash/itching gradually resolved. Overall feeling well. Breathing normal-not feeling increased SOA, cough or congestion. Urinating well. Not having swelling to legs or hands. No nausea. No chest pain. Ambulating without problems. Creatinine to baseline at 0.9, Potassium normalized. Uric acid, LDH, phos, and magnesium normal. CO2 elevated at 31 due to IVF infusion. Continue IVF at 150 cc/hr - IVF change to 2amp sodium bicarb this evening. Recheck BMP, uric acid and LDH this afternoon. Continue Benadryl as needed for itch and rash. Encourage ambulation. Dr Varela to determine about chemo options - Starting Ibrutnib 140mg on 07/13. 07/13 Doing well this afternoon. Received Ibrutnib 140mg this morning. Had some itching for about 30-45 minutes, but improved. Notes rash to her right lower leg , but not terribly itchy or uncomfortable. No difficulty breathing. No nausea. Feeling very well overall. Urinating well. Not having increased edema. No f/c. Continue IVF at 150 cc/hr - D5W with 2 amps sodium bicarb. Recheck BMP, uric acid, phos and LDH this evening. Continue Benadryl as needed for itch and rash. Currently tolerating chemo well - no evidence of tumor lysis with this am dose Monitor for symptoms. Encourage ambulation. Recheck lab in am. Developed itch and rash. IVF change to D5W with 3amps of Bicarbonate - rate stayed at 150 cc/hr. 07/14 Last night was rough - started getting rash and itching about 1900 - lasted unit 0400 this am. Benadryl and Solu-Medrol given. Uric acid with increase this am. Did receive chemo this morning. Doing well this afternoon - not having itch or rash. Breathing well. Swallowing well. No f/c. Not developing edema or arms or legs. Ambulating without difficulty - trying to stay active. No nausea or ab pain. Urinating well. Received Ibrutnib 140mg this morning. Recheck Uric acid 4 hours post medication not showing elevation. Continue to monitor throughout day. Continue IVF at 150 cc/hr - D5W with 3 amps sodium bicarb. Continue Benadryl and Solu-Medrol as needed for itch and rash. Encourage ambulation. Recheck lab in am. BEKAH RICHARDSON MD Jul 14, 2016 13:06
--- NOTE | 2016-07-14 18:37 | NUR ---
SHIFT SUMMARY PT HAS BEEN COOPERATIVE WITH TREATMENTS AND CARE. PT IS ALERT AND ORIENTED X3. PT DENIES PAIN, NAUSEA/VOMITING AND SOA. PT IS ON ROOM AIR.UP WITH NO ASSIST. FAMILY VISITED HER TODAY. FLUIDS RUNNING CHARTED.
--- NOTE | 2016-07-14 18:39 | NUR ---
SHIFT PT HAS BEEN PLEASANT AND COOPERATIVE ALL SHIFT. PT IS A&OX3, UP WITH NO ASSIST, LOW FALL. PT DENIES PAIN, N/V AND SOA. PT IS ON ROOM AIR. PT DENIES AND S/S OF CHEMO MED REACTION THIS SHIFT. PRN SOLUMED IS AVAILABLE IF NEEDED. PT HAS AMBULATED IN [place] MULTIPLE TIMES THIS SHIFT. FAMILY HAS BEEN AT BEDSIDE. NO OTHER CHANGES SINCE PREVIOUS SHIFT.
[2016-07-15] MEDS: LORAZEPAM 0.5 MG TABLET PO PRN (00:13)
[2016-07-15] MEDS: SODIUM BICARB IV SCH ×2 (00:46→09:30)
[2016-07-15] MEDS: D5W IV SCH ×2 (00:46→09:30)
--- NOTE | 2016-07-15 04:59 | NUR ---
summary pt remains on room air. vss. up ad kory, ambulated well in hallway. denies pain, rash, redness, difficulty breathing. no signs of chemo reaction this shift. no new concerns at this time.
[2016-07-15] MEDS: LEVOTHYROXINE 150 MCG TABLET PO SCH (05:44)
[2016-07-15 05:45] LABS: HCT - HEMATOCRIT 28.2 % (36-46); HGB - HEMOGLOBIN 9.1 GM/DL (12-16); MEAN CORPUSCULAR HGB 33.5 UUG (26-34); MEAN CORPUSCULAR HGB CONC(MCHC 32.3 GM/DL (31-37); MEAN CORPUSCULAR VOLUME 103.7 UM3 (80-100); MEAN PLATELET VOLUME 9.3 UM3 (9.4-12.4); RED BLOOD COUNT 2.72 M/MM3 (4.00-5.20)
[2016-07-15 05:55] LABS: WBC - WHITE BLOOD COUNT 115.5 T/MM3 (4.5-11.0)
[2016-07-15 05:59] LABS: ALBUMIN 2.9 G/DL (3.5-5.0); ALBUMIN/GLOBULIN RATIO 0.9 RATIO (1.1-2.2); ALKALINE PHOSPHATASE 73 U/L (38-126); ALT (SGPT) 28 U/L (9-52); ANION GAP 9 MEQ/L (5-15); AST (SGOT) 22 U/L (14-36); BUN/CREATININE RATIO 30 RATIO (6-26); CALCIUM 8.2 MG/DL (8.4-10.2); CHLORIDE 106 MEQ/L (98-107); CO2 - CARBON DIOXIDE 32 MEQ/L (22-30); CREATININE 0.7 MG/DL (0.7-1.2); GLOMERULAR FILTRATION RATE 83; GLUCOSE 100 MG/DL (65-110); LDH 452 U/L (313-618); MAGNESIUM 2.1 MG/DL (1.6-2.3); PHOSPHORUS 3.5 MG/DL (2.5-4.5); POTASSIUM 3.3 MEQ/L (3.6-5); SODIUM 147 MEQ/L (134-144); TOTAL PROTEIN 6.2 G/DL (6.3-8.2); URIC ACID 6.8 MG/DL (2.5-7.5)
[2016-07-15 06:07] LABS: ANISOCYTOSIS 1+; LYMPHOCYTES # (MANUAL) 109.7 T/MM3 (1-4.8); MONOCYTES # (MANUAL) 1.2 T/MM3 (0-0.8); NEUTROPHILS #(MANUAL)-ABSOLUTE 4.6 T/MM3 (1.8-7.7); POIKILOCYTOSIS 1+; TOTAL CELLS COUNTED 100 %
[2016-07-15 07:00] VITALS: BP 122/69; PULSE 73; RESP 14; TEMP 97; O2SAT 98
[2016-07-15] MEDS: ACYCLOVIR 200 MG CAPSULE PO SCH (08:30)
[2016-07-15] MEDS ORDERED: CITALOPRAM 10mg TABLET PO SCH (09:00)
[2016-07-15] MEDS ORDERED: POTASSIUM CHLORIDE 10 MEQ TABLET PO SCH (09:45)
--- NOTE | 2016-07-15 10:57 | PNPDOC ---
Subjective Date DATE: 07/15/16 TIME: 10:49 Patient doing well no reaction to ibrutinib from yesterday. No itching no rash the rash on her legs is improved. Review of systems: Gen.: Negative for fever or chills, malaise Eyes: Negative eye discharge, eye pain ENT: Negative for nosebleeds, mouth sores Lymph: Positive enlarged lymph nodes, no night sweats Respiratory: Negative for cough, shortness of breath, hemoptysis, Cardiac: Negative for chest pain, palpitations, or swelling GI: Negative for nausea, negative for vomiting, negative for diarrhea Genitourinary: No urgency, no dysuria, no hematuria Musculoskeletal: Negative for weakness, no joint pain Neurologic: Negative for headache, negative for focal weakness, negative for numbness Objective Vital Signs Vital Signs 07/14/16 07/15/16 23:06 07:00 Temp 96.9 97.0 Pulse 71 73 Resp 10 14 B/P 119/66 122/69 Pulse Ox 95 98 O2 Delivery Room Air Room Air Height (Feet): 5 Height (Inches): 6.00 Weight (Kilograms): 63.000 General Alert Eyes (Brief) Eyes: FOUND: EOMI, PERRL, NOT FOUND: scleral icterus ENMT (Brief) ENMT: FOUND: mucosa moist, NOT FOUND: lesions Neck (Brief) Neck: NOT FOUND: adenopathy, tenderness Respiratory (Brief) Respiratory: FOUND: clear all stevenson, equal bilaterally, NOT FOUND: rales Cardiovascular (Brief) Cardiac: FOUND: regular rate, regular rhythm, NOT FOUND: murmur Abdomen (Brief) Abdominal: FOUND: BS normo active x4, soft, NOT FOUND: distended, hepatosplenomegaly, tender Lymphatic (Brief) FOUND: adenopathy (positive bilateral axillary lymphadenopathy, mild decrease in size), other (left lower lumbar area mass has resolved) Musculoskeletal (Brief) NOT FOUND: loss of motion, tenderness Neurologic (Brief) FOUND: cranial 2-12 intact, motor (no acute motor deficit ambulates without difficulty) Psychiatric (Brief) FOUND: alert, attentive, normal affect, oriented Laboratory Item Value Date Time White Blood Count 148.8 T/MM3 *H # 07/14/16 0358 Platelet Count 157 T/MM3 07/14/16 0358 White Blood Count 102.7 T/MM3 *H 07/13/16 0407 Creatinine 0.9 MG/DL # 07/14/16 0358 Uric Acid 9.5 MG/DL H 07/14/16 0358 Phosphorus Level 4.4 MG/DL 07/14/16 0358 Lactate Dehydrogenase 581 U/L 07/14/16 0358 White Blood Count 115.5 T/MM3 *H 07/15/16 0510 Hemoglobin 9.1 GM/DL L 07/15/16 0510 Platelet Count 129 T/MM3 L 07/15/16 0510 Lymphocytes % (Manual) 95.0 % H 07/15/16 0510 Neutrophils % (Manual) 4.0 % L 07/15/16 0510 Uric Acid 6.8 MG/DL 07/15/16 0510 Uric Acid 7.6 MG/DL H 07/14/16 1946 Uric Acid 7.7 MG/DL H 07/14/16 1551 Uric Acid 8.8 MG/DL H 07/14/16 1149 Creatinine 0.7 MG/DL 07/15/16 0510 Phosphorus Level 3.5 MG/DL 07/15/16 0510 Lactate Dehydrogenase 452 U/L 07/15/16 0510 Laboratory Tests Test 07/14/16 11:49 07/14/16 15:51 07/14/16 19:46 07/15/16 05:10 Turbidity < 20 < 20 Sodium Level 146MEQ/L 147MEQ/L Potassium Level 3.9MEQ/L 3.3MEQ/L Chloride Level 105MEQ/L 106MEQ/L Carbon Dioxide Level 31MEQ/L 32MEQ/L Anion Gap 10MEQ/L 9MEQ/L Blood Urea Nitrogen 27.0MG/DL 21.0MG/DL Creatinine 0.8MG/DL 0.7MG/DL Glomerular Filtration Rate Calc 72 83 BUN/Creatinine Ratio 34RATIO 30RATIO Glucose Level 116MG/DL 100MG/DL Calculated Osmolality 287MOSM/KG 285MOSM/KG Uric Acid 8.8MG/DL 7.7MG/DL 7.6MG/DL 6.8MG/DL Calcium Level 8.4MG/DL 8.2MG/DL Phosphorus Level 4.0MG/DL 3.5MG/DL Icterus Index < 2 < 2 Chemistry Specimen Hemolysis < 15 < 15 White Blood Count 115.5T/MM3 Red Blood Count 2.72M/MM3 Hemoglobin 9.1GM/DL Hematocrit 28.2% Mean Corpuscular Volume 103.7UM3 Mean Corpuscular Hemoglobin 33.5UUG Mean Corpuscular Hemoglobin Concent 32.3GM/DL RDW Standard Deviation 60.9FL Platelet Count 129T/MM3 Mean Platelet Volume 9.3UM3 Immature Granulocyte % (Auto) % Neutrophils (%) (Auto) % Lymphocytes (%) (Auto) % Monocytes (%) (Auto) % Eosinophils (%) (Auto) % Basophils (%) (Auto) % Absolute Immature Granulocyte (auto T/MM3 Absolute Neutrophils (auto) T/MM3 Absolute Lymphocytes (auto) T/MM3 Absolute Monocytes (auto) T/MM3 Absolute Eosinophils (auto) T/MM3 Absolute Basophils (auto) T/MM3 Neutrophils % (Manual) 4.0% Lymphocytes % (Manual) 95.0% Monocytes % (Manual) 1.0% Absolute Neutrophils (Manual) 4.6T/MM3 Lymphocytes # (Manual) 109.7T/MM3 Monocytes # (Manual) 1.2T/MM3 Poikilocytosis 1+ Anisocytosis 1+ Red Cell Morphology Comment Abnormal Magnesium Level 2.1MG/DL Total Bilirubin 0.50MG/DL Aspartate Amino Transf (AST/SGOT) 22U/L Alanine Aminotransferase (ALT/SGPT) 28U/L Alkaline Phosphatase 73U/L Lactate Dehydrogenase 452U/L Total Protein 6.2G/DL Albumin 2.9G/DL Globulin 3.3G/DL Albumin/Globulin Ratio 0.9RATIO Assessment & Plan Assessment CLL with progressive disease. Restarted ibrutinib on 07/10/10 with a challenge of 1 pill. This was associated with tumor lysis. She had slight redness with the first pill with itching on her legs. She had one pill on 07/13 and had intense burning of the skin at 7 PM. This was relieved with Benadryl and Solu- Medrol. Symptoms have resolved. She had one pill on 07/14 and had no symptoms overnight. We'll continue one pill of ibrutinib today. She did not have a huge bump in her uric acid only to 8.3 at noon yesterday. 2. 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 She had elevation of her uric acid after one ibrutinib on it is gone from 6.7-9.6. No other evidence of tumor lysis. On 07/14/16 she had one pill and uric acid did go up to 8.3. It is back down to 6.7 this morning. We will continue ibrutinib today and look at dismissal. We'll have patient get a CMP, LDH, uric acid, phosphorus tomorrow and Sunday and then see her back Sunday. Plan/Intensity of Service 1 tablet Ibrutinib again today, with dismissal later today. Will obtain uric acid at noon prior to dismissal and then again tomorrow. CBC, CMP, LDH, mag, phosphorus, uric acid on 07/16 and 07/17. Follow-up with us on 07/17 with office appointment Code Status Full Code Hospital Course Summary Disclaimer The visit summary below is not to be considered part of the above Progress Note. Hospital Course Summary 07/10 patient S/P ibrutinib today. Patients uric acid and electrolytes are trending up. Will give IVF D5W with 2 amps bicarb and monitor labs Q4H overnight. Give supportive care. 07/11 Feeling better overall, but still some itching. Lab improving: LDH and uric acid trending down. Phos and magnesium normal. Potassium decreased - replace orally. Sodium increasing and creatinine with slight increase - will change IVF to D5W with 1 amp bicarb as pt needs more free water in IV. 07/12 Doing well this afternoon. Morning was rough-developed diffuse rash with severe itching just after she got in shower. Additional Benadryl give and rash/itching gradually resolved. Overall feeling well. Breathing normal-not feeling increased SOA, cough or congestion. Urinating well. Not having swelling to legs or hands. No nausea. No chest pain. Ambulating without problems. Creatinine to baseline at 0.9, Potassium normalized. Uric acid, LDH, phos, and magnesium normal. CO2 elevated at 31 due to IVF infusion. Continue IVF at 150 cc/hr - IVF change to 2amp sodium bicarb this evening. Recheck BMP, uric acid and LDH this afternoon. Continue Benadryl as needed for itch and rash. Encourage ambulation. Dr Varela to determine about chemo options - Starting Ibrutnib 140mg on 07/13. 07/13 Doing well this afternoon. Received Ibrutnib 140mg this morning. Had some itching for about 30-45 minutes, but improved. Notes rash to her right lower leg , but not terribly itchy or uncomfortable. No difficulty breathing. No nausea. Feeling very well overall. Urinating well. Not having increased edema. No f/c. Continue IVF at 150 cc/hr - D5W with 2 amps sodium bicarb. Recheck BMP, uric acid, phos and LDH this evening. Continue Benadryl as needed for itch and rash. Currently tolerating chemo well - no evidence of tumor lysis with this am dose Monitor for symptoms. Encourage ambulation. Recheck lab in am. Developed itch and rash. IVF change to D5W with 3amps of Bicarbonate - rate stayed at 150 cc/hr. 07/14 Last night was rough - started getting rash and itching about 1900 - lasted unit 0400 this am. Benadryl and Solu-Medrol given. Uric acid with increase this am. Did receive chemo this morning. Doing well this afternoon - not having itch or rash. Breathing well. Swallowing well. No f/c. Not developing edema or arms or legs. Ambulating without difficulty - trying to stay active. No nausea or ab pain. Urinating well. Received Ibrutnib 140mg this morning. Recheck Uric acid 4 hours post medication not showing elevation. Continue to monitor throughout day. Continue IVF at 150 cc/hr - D5W with 3 amps sodium bicarb. Continue Benadryl and Solu-Medrol as needed for itch and rash. Encourage ambulation. Recheck lab in am. CHRISTOPHER VARELA Jul 15, 2016 10:56
[2016-07-15] MEDS ORDERED: IBRUTINIB 140 MG PO ONE (11:00)
[2016-07-15 11:03] VITALS: PULSE 73; RESP 14
[2016-07-15] MEDS ORDERED: DEXA4TAB PO (11:03)
--- NOTE | 2016-07-15 13:35 | NUR ---
STATUS PATIENT RECEIVED IBRUTINIB AT 1100 AND IS DOING WELL. UP AMBULATING IN HALLWAY INDEPENDENTLY. PATIENT REPORTS MINIMAL TINGLING BUT VERY TOLERABLE. NO OTHER REACTION OR SIDE EFFECTS.
[2016-07-15] MEDS ORDERED: DIPH25CA84 PO (14:27)
--- NOTE | 2016-07-15 14:54 | DSPDOC ---
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 Pruritus Hypokalemia Hypothyroidism Laboratory Laboratory Tests Test 07/14/16 03:58 07/14/16 11:49 07/14/16 15:51 07/14/16 19:46 White Blood Count 148.8T/MM3 (4.5-11.0) Red Blood Count 3.03M/MM3 (4.00-5.20) Hemoglobin 10.1GM/DL (12-16) Hematocrit 30.8% (36-46) Mean Corpuscular Volume 101.7UM3 (80-100) Mean Corpuscular Hemoglobin 33.3UUG (26-34) Mean Corpuscular Hemoglobin Concent 32.8GM/DL (31-37) RDW Standard Deviation 60.0FL (36.9-50.2) Platelet Count 157T/MM3 (130-400) Mean Platelet Volume 9.2UM3 (9.4-12.4) Immature Granulocyte % (Auto) % (0.0-0.5) Neutrophils (%) (Auto) % (33-66) Lymphocytes (%) (Auto) % (23-45) Monocytes (%) (Auto) % (0-9.0) Eosinophils (%) (Auto) % (0-4) Basophils (%) (Auto) % (0-2) Absolute Immature Granulocyte (auto T/MM3 (0.00-0.03) Absolute Neutrophils (auto) T/MM3 (1.8-7.7) Absolute Lymphocytes (auto) T/MM3 (1-4.8) Absolute Monocytes (auto) T/MM3 (0-0.8) Absolute Eosinophils (auto) T/MM3 (0-0.5) Absolute Basophils (auto) T/MM3 (0-0.2) Neutrophils % (Manual) 1.0% (33-66) Lymphocytes % (Manual) 99.0% (23-45) Absolute Neutrophils (Manual) 1.5T/MM3 (1.8-7.7) Lymphocytes # (Manual) 147.3T/MM3 (1-4.8) Smudge Cells 2+ Poikilocytosis 1+ Anisocytosis 2+ Tear Drop Cells 1+ Red Cell Morphology Comment Abnormal Turbidity < 20 (0-20) < 20 (0-20) Sodium Level 145MEQ/L (134-144) 146MEQ/L (134-144) Potassium Level 4.0MEQ/L (3.6-5) 3.9MEQ/L (3.6-5) Chloride Level 105MEQ/L (98-107) 105MEQ/L (98-107) Carbon Dioxide Level 30MEQ/L (22-30) 31MEQ/L (22-30) Anion Gap 10MEQ/L (5-15) 10MEQ/L (5-15) Blood Urea Nitrogen 33.0MG/DL (7-17) 27.0MG/DL (7-17) Creatinine 0.9MG/DL (0.7-1.2) 0.8MG/DL (0.7-1.2) Glomerular Filtration Rate Calc 62 72 BUN/Creatinine Ratio 37RATIO (6-26) 34RATIO (6-26) Glucose Level 160MG/DL (65-110) 116MG/DL (65-110) Calculated Osmolality 289MOSM/KG (261-280) 287MOSM/KG (261-280) Uric Acid 9.5MG/DL (2.5-7.5) 8.8MG/DL (2.5-7.5) 7.7MG/DL (2.5-7.5) 7.6MG/DL (2.5-7.5) Calcium Level 8.6MG/DL (8.4-10.2) 8.4MG/DL (8.4-10.2) Phosphorus Level 4.4MG/DL (2.5-4.5) 4.0MG/DL (2.5-4.5) Magnesium Level 2.1MG/DL (1.6-2.3) Total Bilirubin 0.50MG/DL (0.20-1.30) Icterus Index < 2 (0-7) < 2 (0-7) Aspartate Amino Transf (AST/SGOT) 31U/L (14-36) Alanine Aminotransferase (ALT/SGPT) 31U/L (9-52) Alkaline Phosphatase 83U/L (38-126) Lactate Dehydrogenase 581U/L (313-618) Total Protein 6.6G/DL (6.3-8.2) Albumin 3.2G/DL (3.5-5.0) Globulin 3.4G/DL (2.4-3.6) Albumin/Globulin Ratio 0.9RATIO (1.1-2.2) Chemistry Specimen Hemolysis < 15 (0-25) < 15 (0-25) Test 07/15/16 05:10 07/15/16 13:17 White Blood Count 115.5T/MM3 (4.5-11.0) Red Blood Count 2.72M/MM3 (4.00-5.20) Hemoglobin 9.1GM/DL (12-16) Hematocrit 28.2% (36-46) Mean Corpuscular Volume 103.7UM3 (80-100) Mean Corpuscular Hemoglobin 33.5UUG (26-34) Mean Corpuscular Hemoglobin Concent 32.3GM/DL (31-37) RDW Standard Deviation 60.9FL (36.9-50.2) Platelet Count 129T/MM3 (130-400) Mean Platelet Volume 9.3UM3 (9.4-12.4) Immature Granulocyte % (Auto) % (0.0-0.5) Neutrophils (%) (Auto) % (33-66) Lymphocytes (%) (Auto) % (23-45) Monocytes (%) (Auto) % (0-9.0) Eosinophils (%) (Auto) % (0-4) Basophils (%) (Auto) % (0-2) Absolute Immature Granulocyte (auto T/MM3 (0.00-0.03) Absolute Neutrophils (auto) T/MM3 (1.8-7.7) Absolute Lymphocytes (auto) T/MM3 (1-4.8) Absolute Monocytes (auto) T/MM3 (0-0.8) Absolute Eosinophils (auto) T/MM3 (0-0.5) Absolute Basophils (auto) T/MM3 (0-0.2) Neutrophils % (Manual) 4.0% (33-66) Lymphocytes % (Manual) 95.0% (23-45) Monocytes % (Manual) 1.0% (0-9.0) Absolute Neutrophils (Manual) 4.6T/MM3 (1.8-7.7) Lymphocytes # (Manual) 109.7T/MM3 (1-4.8) Monocytes # (Manual) 1.2T/MM3 (0-0.8) Poikilocytosis 1+ Anisocytosis 1+ Red Cell Morphology Comment Abnormal Turbidity < 20 (0-20) Sodium Level 147MEQ/L (134-144) Potassium Level 3.3MEQ/L (3.6-5) Chloride Level 106MEQ/L (98-107) Carbon Dioxide Level 32MEQ/L (22-30) Anion Gap 9MEQ/L (5-15) Blood Urea Nitrogen 21.0MG/DL (7-17) Creatinine 0.7MG/DL (0.7-1.2) Glomerular Filtration Rate Calc 83 BUN/Creatinine Ratio 30RATIO (6-26) Glucose Level 100MG/DL (65-110) Calculated Osmolality 285MOSM/KG (261-280) Uric Acid 6.8MG/DL (2.5-7.5) 6.0MG/DL (2.5-7.5) Calcium Level 8.2MG/DL (8.4-10.2) Phosphorus Level 3.5MG/DL (2.5-4.5) Magnesium Level 2.1MG/DL (1.6-2.3) Total Bilirubin 0.50MG/DL (0.20-1.30) Icterus Index < 2 (0-7) Aspartate Amino Transf (AST/SGOT) 22U/L (14-36) Alanine Aminotransferase (ALT/SGPT) 28U/L (9-52) Alkaline Phosphatase 73U/L (38-126) Lactate Dehydrogenase 452U/L (313-618) Total Protein 6.2G/DL (6.3-8.2) Albumin 2.9G/DL (3.5-5.0) Globulin 3.3G/DL (2.4-3.6) Albumin/Globulin Ratio 0.9RATIO (1.1-2.2) Chemistry Specimen Hemolysis < 15 (0-25) White count on admission was 133.4 thousand with 2% neutrophils and 98% lymphocytes. Hemoglobin on admission was 10.2 and platelet count 160,000. On admission creatinine was 1.0, uric acid 10.5, phosphorus 4.8. Maximum creatinine during the hospitalization was 1.2 on 07/11. LVH was 664 on 07/11 and peaked at 738 later the same day. History of Present Illness Well-known 66-year-old female with chronic lymphocytic leukemia with recent evidence of progressive disease was treated with Ibrutinib 1 tablet last evening. 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 Had labs drawn last evening , which showed increased uric acid, increased BUN, phosphorus, and potassium. Recommended direct admission by Dr. Varela for IV fluids, alkalinization of urine, and close monitoring of renal function. History of present illness shows CLL diagnosed in December 2012, ROMAN stage pre-0 as absolute lymphocyte count is not 15,000. CT scan showed borderline lymph nodes which could be ROMAN 1. This was diagnosed by flow cytometry with aggressive cytogenetics deletion 11q, deletion 13q, and trisomy 12. She had second opinion with Dr. Abby Weber in [place]. She was started on Ibrutinib, 3 tabs in January 2016. In February 2016 patient hospitalized at [facility] with fever, skin rash, and severe desquamation of skin. This was likely reaction to either Ibrutinib, allopurinol, or Invanz. Recovered nicely and followed closely. WBCs continue to increase, also increasing lymphadenopathy and recent CT scan showed progressive disease. A repeat flow cytometry reveal same immunophenotypic profile. Peripheral smear did not show increased number of lymphocytes. Therefore, not transformation of her underlying disease. Cytogenetics pending. At time of intake this morning, patient sitting on bedside, daughter and friends at bedside. She is alert and oriented. Has mild intermittent itching. Denies fever, chills, night sweats. She is eating and drinking normally. No nausea,vomiting, no abdominal pain. Feels voiding may be slightly decreased. Normal bowel movement yesterday. Denies headache, vision changes, no dizziness. Continues with axillary lymphadenopathy, unchanged, and has one soft mass left lumbar spine. Hospital Course 07/10 patient S/P ibrutinib today. Patients uric acid and electrolytes are trending up. Will give IVF D5W with 2 amps bicarb and monitor labs Q4H overnight. Give supportive care. 07/11 Feeling better overall, but still some itching. Lab improving: LDH and uric acid trending down. Phos and magnesium normal. Potassium decreased - replace orally. Sodium increasing and creatinine with slight increase - will change IVF to D5W with 1 amp bicarb as pt needs more free water in IV. 07/12 Doing well this afternoon. Morning was rough-developed diffuse rash with severe itching just after she got in shower. Additional Benadryl give and rash/itching gradually resolved. Overall feeling well. Breathing normal-not feeling increased SOA, cough or congestion. Urinating well. Not having swelling to legs or hands. No nausea. No chest pain. Ambulating without problems. Creatinine to baseline at 0.9, Potassium normalized. Uric acid, LDH, phos, and magnesium normal. CO2 elevated at 31 due to IVF infusion. Continue IVF at 150 cc/hr - IVF change to 2amp sodium bicarb this evening. Continue Benadryl as needed for itch and rash. Encourage ambulation. Dr Varela to determine about chemo options - Starting Ibrutnib 140mg on 07/13. 07/13 Doing well this afternoon. Received Ibrutnib 140mg this morning. Had some itching for about 30-45 minutes, but improved. Notes rash to her right lower leg , but not terribly itchy or uncomfortable. No difficulty breathing. No nausea. Feeling very well overall. Urinating well. Not having increased edema. No f/c. Continue IVF at 150 cc/hr - D5W with 2 amps sodium bicarb with later switched to 3 amps of bicarbonate. Recheck BMP, uric acid, phos and LDH this evening. Continue Benadryl as needed for itch and rash. Currently tolerating chemo well - no evidence of tumor lysis with this am dose Monitor for symptoms. Encourage ambulation. 07/14 Last night was rough - started getting rash and itching about 1900 - lasted unit 0400 this am. Benadryl and Solu-Medrol given. Uric acid with increase this am. Did receive chemo this morning. Doing well this afternoon - not having itch or rash. Breathing well. Swallowing well. No f/c. Not developing edema or arms or legs. Ambulating without difficulty - trying to stay active. No nausea or ab pain. Urinating well. Received Ibrutnib 140mg this morning. Recheck Uric acid 4 hours post medication not showing elevation. Continue to monitor throughout day. Continue IVF at 150 cc/hr - D5W with 3 amps sodium bicarb. Continue Benadryl and Solu-Medrol as needed for itch and rash. Encourage ambulation. 07/15-discharge Tolerated chemotherapy without difficulty yesterday, additional dose given today. Vicki describes mild tingling in her arms following administration of Ibrutnib but she's noted no rash or dyspnea. She is ambulating the halls without difficulty and feels good overall. Respirations are nonlabored with good airflow in cardiac rhythm regular. She is alert. There are some minor petechial lesions on the extremities but no generalized rash or urticaria. Uric acid, phosphorus, and LDH all stable. Recurrent hypokalemia, supplemented orally earlier today. Discussed with sheldon Barraza for discharge home with labs to be reevaluated tomorrow and again Sunday prior to office appointment. Medications reviewed with Vicki in detail; several removed from home medication list as they are inactive. Stable for discharge at this time. >30 minutes spent on patient care and discharge care coordination today on the date of discharge. -- Problems: (1) At high risk of tumor lysis syndrome (2) Chronic lymphocytic leukemia Onset Date: ~ 2012 Status: Chronic Assessment & Plan: 07/13: Ibrutnib 140mg (3) Hypothyroid Status: Chronic (4) Generalized pruritus Status: Resolved (5) Hyperphosphatemia Status: Acute Assessment & Plan: POA (6) Elevated blood uric acid level Status: Resolved Assessment & Plan: POA (7) Elevated LDH Status: Resolved Assessment & Plan: POA (8) Hypokalemia Status: Resolved Assessment & Plan: Not POA Code Status Full Code Home Meds Active Scripts Hydrocodone/Apap ([place] 5-325 Tablet) 5-325 Tablet, 1-2 TAB PO Q4HR Y for PAIN, #30 Prov:POLO BLACK MD 02/18/16 Reported Medications Citalopram Hydrobromide (Celexa) 10 Mg Tablet, 1 TAB PO DAILY, TAB 07/12/16 Acetaminophen (Acetaminophen) 500 Mg Tablet, 1000 MG PO Q8H Y for PAIN 02/12/16 Ibuprofen (Ibuprofen) 200 Mg Tablet, 400 MG PO Q4H Y for PAIN 02/12/16 Lorazepam (Ativan) 0.5 Mg Tablet, 0.5 MG PO Q4H Y for ANXIETY 02/12/16 Tamsulosin HCl (Tamsulosin HCl) 0.4 Mg Cap.er.24h, 0.4 MG PO DAILY Y for PRN ORDERS 02/12/16 Acyclovir (Acyclovir) 400 Mg Tablet, 400 MG PO BID 02/12/16 Levothyroxine Sodium (Levothyroxine Sodium) 150 Mcg Tablet, 150 MCG PO ACB 02/12/16 Face to Face Encounter I met with patient on the day of dismissal and discussed follow up appointments , medications, and safety plan. Discharge Disposition Home Copies To 1: LLOYD VARELA; REINALDO CARDENAS MD, ROBERTA L MD Jul 15, 2016 14:35
[2016-07-15] MEDS ORDERED: POTASSIUM CHLORIDE 10 MEQ TABLET PO ONE (15:00)
--- NOTE | 2016-07-15 15:07 | NUR ---
PRESCRIPTIONS DEXAMETHASONE AND BENADRYL SCRIPTS CALLED TO [facility].
--- NOTE | 2016-07-15 15:35 | NUR ---
DISMISSAL TO HOME VSS. RA. DENIES PAIN. PATIENT AND VERBALIZE DISCHARGE INSTRUCTIONS. PATIENT AWARE OF S/S OF REACTION AND WHEN TO NOTIFY DR. PATIENT DROVE HOME BY . CHEMO MED RETURNED TO PATIENT.
--- NOTE | 2016-07-18 07:31 | PDONTRACK ---
Right on Track Program Date of Discharge Jul 15, 2016 at 15:24 Scheduled Acyclovir (Acyclovir), 400 MG PO BID, (Reported) Citalopram Hydrobromide (Celexa), 1 TAB PO DAILY, (Reported) Levothyroxine Sodium (Levothyroxine Sodium), 150 MCG PO ACB, (Reported) Scheduled PRN Acetaminophen (Acetaminophen), 1,000 MG PO Q8H PRN for PAIN, (Reported) Dexamethasone (Dexamethasone), 2 TAB PO DAILY PRN for ITCHING Diphenhydramine HCl (Benadryl), 25-50 MG PO QID PRN for ITCH Tamsulosin HCl (Tamsulosin HCl), 0.4 MG PO DAILY PRN for PRN ORDERS, (Reported) Discontinued Medications Hydrocodone/Apap ([place] 5-325 Tablet), 1-2 TAB PO Q4HR PRN for PAIN Ibuprofen (Ibuprofen), 400 MG PO Q4H PRN for PAIN, (Reported) Lorazepam (Ativan), 0.5 MG PO Q4H PRN for ANXIETY, (Reported) Date: Jul 17, 2016 Right on Track Program: 24 Hour Follow-Up Discharge Summary Received: Yes Care Plan Received: Yes Follow up: Follow Up Appt. Scheduled Education: Diagnosis Ed. Review, Education to Restaurant And Bar Manager Referrals: Case Management Total LACE Score: 11 Comments PHONE CALL #1: I spoke with Vicki on 07/17/16. She stated she was doing "really good". She has been tolerating the medications well. She has had some mild itching but no significant reactions, and the itching isn't nearly as severe as it had been. She felt well enough to work for part of the day, and plans to work a few more days this week. She's had follow up labs earlier in the morning , and will have another lab draw tomorrow in preparation for her follow up appt. with Dr. Varela. She denied any questions on her hospital discharge instructions or care plan. I will make a home visit on 07/21/16. (Note: while the patient was discharged on 07/15/16, I wasn't notified until 07/17, which explains the delay in the 24-hour follow up call.) Discussed w/pt and caregiver: Yes Problems: (1) At high risk of tumor lysis syndrome (2) Chronic lymphocytic leukemia Onset Date: ~ 2012 Status: Chronic Assessment & Plan: 07/13: Ibrutnib 140mg (3) Hypothyroid Status: Chronic (4) Generalized pruritus Status: Resolved (5) Hyperphosphatemia Status: Acute Assessment & Plan: POA (6) Elevated blood uric acid level Status: Resolved Assessment & Plan: POA (7) Elevated LDH Status: Resolved Assessment & Plan: POA (8) Hypokalemia Status: Resolved Assessment & Plan: Not POA MARIA DENISE TECHNOLOGY LAB TEACHER Jul 18, 2016 07:26
--- NOTE | 2016-07-18 13:33 | NUR ---
CM CM LVM
--- NOTE | 2016-07-21 09:22 | PDONTRACK ---
Right on Track Program Date of Discharge Jul 15, 2016 at 15:24 Scheduled Acyclovir (Acyclovir), 400 MG PO BID, (Reported) Citalopram Hydrobromide (Celexa), 1 TAB PO DAILY, (Reported) Levothyroxine Sodium (Levothyroxine Sodium), 150 MCG PO ACB, (Reported) Scheduled PRN Acetaminophen (Acetaminophen), 1,000 MG PO Q8H PRN for PAIN, (Reported) Dexamethasone (Dexamethasone), 2 TAB PO DAILY PRN for ITCHING Diphenhydramine HCl (Benadryl), 25-50 MG PO QID PRN for ITCH Tamsulosin HCl (Tamsulosin HCl), 0.4 MG PO DAILY PRN for PRN ORDERS, (Reported) Discontinued Medications Hydrocodone/Apap ([place] 5-325 Tablet), 1-2 TAB PO Q4HR PRN for PAIN Ibuprofen (Ibuprofen), 400 MG PO Q4H PRN for PAIN, (Reported) Lorazepam (Ativan), 0.5 MG PO Q4H PRN for ANXIETY, (Reported) Date: Jul 21, 2016 Right on Track Program: 7-14Day Liol-bj-Opph Discharge Summary Received: Yes Care Plan Received: Yes Follow up: Follow Up Appt. Scheduled Education: Diagnosis Ed. Review, Education to Banquet Director Referrals: Case Management Total LACE Score: 11 Comments I visited Vicki at her home on 07/21/16. She was doing very well, and reports having ample energy (which she partially attributes to all the IVF and steroids she received while hospitalized). 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 She rates her health as excellent. Below is a summary of our conversation: Resources: She has excellent family, workplace, and scientologist support. She has a daughter who is a nurse and another daughter who is a physical therapist, and they provide great support for Vicki. Barriers: Small concerns about finances. Medications: Reviewed. She does not use a pill organizer, but denies having any difficulty understanding when to take her medications (she had 5 bottles in her cabinet and keeps 2 in her purse in case she has a reaction). PHQ: PCP started her on Citalopram, which has been helpful. She's also seeing a therapist in [place]. The only positive finding in PHQ-9 was the question pertaining to trouble falling/staying asleep - she wakes up often and sometimes will start sewing in the middle of the night because she cannot fall back asleep. She recognizes the importance of staying positive, but she admits that there are times when she becomes overwhelmed with her disease, especially when she thinks about her family and grandchildren. Nutrition: She is at risk for malnutrition, but is diligent about eating healthily. She gave up pop 2 years ago; she primarily eats a gluten free diet ( to support a son-in-law who has celiac), and eats adequate fruits and vegetables. She is trying to drink more water, which has caused frequent nocturia, so she will try to drink the bulk of the water before 2 pm. Exercise: She bikes 2 miles nearly everyday. She used to bike 8-10 miles, but now is weaker and becomes tired more quickly. She would like to increase her physical activity, and we discussed setting small goals, such as biking an extra 2 minutes on her rides, then increasing that time by 2 minutes every week. She does not wear a helmet, and I encouraged her to purchase one for use. Fall Risk: Low risk per [facility] 10. She ambulates and climbs/descends stairs with a steady gait. There were minimal environmental hazards (recommended to remove a loose rug by the front door). ADL/IADL: Independent. Engagement: Highly engaged in her health care. We reviewed recent lab results, and she is having labs checked frequently per Dr. Varela. She has not had any itching or rashes for the last few days. She is tolerating chemo well, and is pleased with the results. Discussed w/pt and caregiver: Yes Recommendations for follow-up 1. F/U with Dr. Varela and with Dr. Reinaldo Escamilla 2. Continue to follow through [facility] 3. Start using a bike helmet Problems: (1) At high risk of tumor lysis syndrome (2) Chronic lymphocytic leukemia Onset Date: ~ 2012 Status: Chronic Assessment & Plan: 07/13: Ibrutnib 140mg (3) Hypothyroid Status: Chronic (4) Generalized pruritus Status: Resolved (5) Hyperphosphatemia Status: Acute Assessment & Plan: POA (6) Elevated blood uric acid level Status: Resolved Assessment & Plan: POA (7) Elevated LDH Status: Resolved Assessment & Plan: POA (8) Hypokalemia Status: Resolved Assessment & Plan: Not POA Copies To 1: CHRISTOPHER VARELA Copies To 2: REINALDO CARDENAS MD, KAREN D APRN Jul 21, 2016 09:19
== END 2016-07-15 15:24 | disposition home or self-care (01) | DRG 840 ==
LOC: MED 21:55
PROVIDERS: ADMIT Internal Medicine; ATTEND Hospitalist
DX: C91.10 Chronic lymphocytic leukemia of B-cell type not having achieved remission (principal); E88.3 Tumor lysis syndrome; T45.1X5A Adverse effect of antineoplastic and immunosuppressive drugs, initial encounter; E03.9 Hypothyroidism, unspecified; L29.9 Pruritus, unspecified; N28.9 Disorder of kidney and ureter, unspecified; E87.6 Hypokalemia; E83.39 Other disorders of phosphorus metabolism; E79.0 Hyperuricemia without signs of inflammatory arthritis and tophaceous disease; Z79.899 Other long term (current) drug therapy
CPT/HCPCS: 36415; 80048; 80053; 81003; 82955; 83615; 83735; 84100; 84550; 85025